=== PATIENT | male | born 1975 | race Caucasian/White ===

== ENCOUNTER 2022-04-04 12:46 | Emergency (ER) | payer MEDICARE, MEDICAID, SELFPAY ==
--- NOTE | ~2022-04-04 | CT_ITS ---
EXAMINATION: CT ABDOMEN AND PELVIS WITHOUT CONTRAST CLINICAL INFORMATION: Left upper quadrant and left flank pain COMPARISON: None TECHNIQUE: Multidetector volumetric imaging was performed from the superior aspect of the liver through the pubic symphysis. Sagittal and coronal reformatted images were obtained on the technologist's workstation. This CT examination was performed using dose optimization techniques as appropriate, variously including the following: *Automated exposure control *Adjustment of mA and/or kV according to patient size (this includes techniques or standardized protocols for targeted exams where dose is matched to indication/reason for exam; i.e. extremities or head) *Use of iterative reconstruction technique DLP: 802 mGy-cm FINDINGS: LUNG BASES: Mild subsegmental atelectasis in the right lower lobe and minimal dependent bibasilar atelectasis. LIVER, GALLBLADDER, AND BILIARY TREE: Mild hepatic hypoattenuation compatible steatosis. No liver lesion. No biliary ductal dilation. The gallbladder is unremarkable with no evidence of radiopaque gallstones, gallbladder wall thickening, or obvious pericholecystic inflammatory changes. PANCREAS: Mild atrophic. No pancreatic lesion, ductal dilation or peripancreatic inflammatory change. SPLEEN: Unremarkable. ADRENAL GLANDS: Unremarkable. KIDNEYS AND URETERS: 2 mm nonobstructing left midpole renal calculus and punctate 1 mm nonobstructing right lower pole renal calculus. No ureteral calculi. No hydronephrosis. 2.1 cm fluid density simple cyst in the left mid to upper pole. No other renal lesion. BLADDER: Unremarkable. GASTROINTESTINAL TRACT: No dilated bowel loops. No bowel wall thickening. Appendix is not discretely visualized. No inflammatory changes at the cecal base. No ascites or free air. ABDOMINAL WALL: Prior linear incision in the ventral left lower abdominal wall. No hernia. LYMPH NODES: No lymphadenopathy. VASCULAR: Mild vascular calcifications. Normal caliber abdominal aorta. PELVIC VISCERA: Unremarkable. OSSEOUS STRUCTURES: Serpentine sclerosis at the superior femoral heads bilaterally suspicious for avascular necrosis. No articular surface collapse or fragmentation. Status post prior discectomy with interbody spacer placement at L5-S1. Mild multilevel degenerative disc disease. CT/CT abdomen pelvis wo con IMPRESSION: 1. No acute intra-abdominal process identified to explain the patient's left upper quadrant/flank pain. 2. A couple small bilateral renal calculi. No ureteral stones or hydronephrosis. 3. Mild hepatic steatosis. 4. Findings suspicious for bilateral femoral head avascular necrosis. No articular surface collapse or fragmentation.
[2022-04-04 12:52] VITALS: BP 154/78; PULSE 95; RESP 18; TEMP 36.8; O2SAT 96; BMI 33.2
[2022-04-04 13:04] LABS: Hematocrit 46.4 % (42.0-52.0); Hemoglobin 15.7 g/dl (14.0-18.0); Mean Corpuscular HGB Conc 33.8 g/dl (31.0-36.0); Mean Corpuscular Hemoglobin 30.5 pg (27.0-33.0); Mean Corpuscular Volume 90.3 fL (80.0-98.0); Mean Platelet Volume 9.1 fL (9.4-12.4); Platelet Count 196 X10*3/uL (160-400); Red Blood Count 5.14 X10*6/uL (4.60-5.80); Red Cell Distribution Width 13.1 % (11.0-16.0); White Blood Count 6.1 X10*3/uL (4.8-10.8)
[2022-04-04 13:24] LABS: Anion Gap 16 (12-20); Blood Urea Nitrogen 15 mg/dL (9-16); Calcium 8.9 mg/dL (8.4-10.2); Carbon Dioxide 27 mmol/L (22-29); Chloride 103 mmol/L (96-108); Creatinine Clr Calc Pharmacy 113.1; Estimated Glomerular Filt Rate > 60; Glucose Random 136 mg/dL (60-115); Potassium 4.4 mmol/L (3.3-5.1); Sodium 142 mmol/L (135-145)
--- NOTE | 2022-04-04 16:31 | ED.GENADULT ---
HPI - General Adult General Chief complaint: Abdominal Pain Stated complaint: pain in back L side Time Seen by Provider: 04/04/22 16:29 Source: patient Mode of arrival: ambulatory Limitations: no limitations History of Present Illness HPI narrative: 47-year-old male no significant medical history presents to the emergency department with a few days of left-sided flank pain. Patient tells me that the pain is constant in nature, severe, breathing makes it worse. He tells me he has had kidney stones in the past, this feels different than his previous episodes of kidney stones. He denies any changes in bowel habits, changes in urination, fevers, chills, chest pain, shortness of breath, nausea, vomiting, urinary/bowel incontinence/retention, weakness, numbness or tingling.. Patient also denies trauma to the area. Related Data Previous Rx's Medication Instructions Recorded cyclobenzaprine 10 mg tablet 10 mg PO BEDTIME PRN muscle spasm 04/04/22 #7 tabs lidocaine 5 % topical patch 1 patch topical DAILY PRN pain #15 04/04/22 ea Allergies Allergy/AdvReac Type Severity Reaction Status Date / Time Unable to Assess Allergy Unverified 04/04/22 16:30 Review of Systems Review of Systems: Constitutional : No Weight loss, No Fever, No Chills, No Fatigue, No Malaise ENT/Mouth : No sore throat, No Rhinorrhea Eyes: No Eye Pain, No Swelling, No Redness Cardiovascular : No Chest Pain, No SOB, No Dyspnea on Exertion, No Orthopnea, No Edema, No Palpitations Respiratory : No Cough, No Sputum, No Wheezing Gastrointestinal : No Nausea, No Vomiting, No Diarrhea, No Constipation, No abdominal Pain, No Hematochezia, No Melena Genitourinary : No Dysuria, No Urinary Frequency, No Hematuria, Musculoskeletal : No joint pain, No Myalgias, No Joint Swelling, + flank pain Skin : No Skin Lesions, No rash Neuro : No Weakness, No Numbness, No Dizziness, No Headache All other systems reviewed and are negative Yes all other systems are reviewed and are negative [facility] Past Medical History Attestation statement: The following information was validated with the patient. Source: old records reviewed and nursing notes reviewed Social History Social History Advance Directives: No Advance Directives Information Provided: No Physical Exam ED Vital Signs: Vital Signs - 24 hr 04/04/22 12:52 Temperature 98.2 F Pulse Rate 95 Respiratory Rate 18 Blood Pressure 154/78 H Pulse Oximetry 96 Oxygen Delivery Method Room Air BMI result Body Mass Index 33.2 VSS Appearance: Alert.? Oriented X3.? No acute distress.? Head: Normocephalic, atraumatic, no step-offs or deformities Eyes: Pupils equal, round and reactive to light.? CVS: Normal heart rate and rhythm.? Pulses normal.? Respiratory: No respiratory distress.? Breath sounds normal.? Abdomen: Soft and nontender.? Skin: Skin warm and dry.? Normal skin color.? Normal skin turgor.? Extremities: No lower extremity edema.? No calf ttp. 5/5 strength to bilateral upper and lower extremities 2+ patellar reflexes equal and b/l. Back: No midline tenderness, no C-spine tenderness, full range of motion, no CVA tenderness bilaterally Neuro: Oriented X 3.? No motor deficit.? No sensory deficit. CN 2-12 intact Course Reevaluation(s) Reevaluation #1: CT of the abdomen pelvis with no acute intra-abdominal process, small bilateral renal calculi noted. Mild hepatic steatosis. Bilateral femoral head avascular necrosis suspected, educated patient on diagnosis, advised him to follow-up with his PCP. CBC within normal limits. Chemistry with no acute findings. Urine pending. Time: 20:23 Reevaluation #2: Urine clean. Likely musculoskeletal pain or patient passed a kidney stone. At this time patient will be discharged home. He tells me he is feeling so much better after Toradol. At this time I feel comfortable discharge with prompt PCP follow-up. Time: 20:41 Medical Decision Making [facility] Narrative Medical decision making narrative: 1630 47-year-old male presenting with complaints of left-sided flank pain history of kidney stones. Physical examination w/ L sided of CVA tenderness and LUQ pain w./ palpation. Plan at this time is to rule out UTI, obstructing uropathy, Pylo. Likley kidney stone or musculoskeletal Plan at this time UA, labs, ct abd and pelvis. Medical Records Medical records reviewed: Yes I reviewed the patient's medical records. Lab Data Lab results reviewed: Yes I reviewed the patient's lab results. Result diagrams: 04/04/22 12:58 04/04/22 12:58 Labs: Lab Results 04/04/22 04/04/22 04/04/22 Range/Units 12:58 12:58 20:25 WBC 6.1 (4.8-10.8) X10*3/uL RBC 5.14 (4.60-5.80) X10*6/uL Hgb 15.7 (14.0-18.0) g/dl Hct 46.4 (42.0-52.0) % MCV 90.3 (80.0-98.0) fL MCH 30.5 (27.0-33.0) pg MCHC 33.8 (31.0-36.0) g/dl RDW 13.1 (11.0-16.0) % Plt Count 196 (160-400) X10*3/uL MPV 9.1 L (9.4-12.4) fL Absolute Nucleated RBC 0.000 (0.0-0.012) X10*3/uL Nucleated RBC % (auto) 0.0 (0.0-0.2) /100WBC Sodium 142 (135-145) mmol/L Potassium 4.4 (3.3-5.1) mmol/L Chloride 103 (96-108) mmol/L Carbon Dioxide 27 (22-29) mmol/L Anion Gap 16 (12-20) BUN 15 (9-16) mg/dL Creatinine 0.95 (0.5-1.4) mg/dL Estim Creat Clear Calc 113.1 Estimated GFR > 60 Random Glucose 136 H (60-115) mg/dL Calcium 8.9 (8.4-10.2) mg/dL Total Bilirubin 0.8 (0.0-1.0) mg/dL Direct Bilirubin 0.3 (0.0-0.5) mg/dL AST 25 (5-37) U/L ALT 25 (0-40) U/L Alkaline Phosphatase 78 (39-117) U/L Total Protein 8.1 H (6.5-8.0) g/dL Albumin 4.2 (3.5-5.0) g/dL Lipase 15 (8-78) U/L Urine Color YELLOW Urine Appearance HAZY Urine pH 7.5 (5.0-8.0) Ur Specific Morris 1.015 (1.005-1.025) Urine Protein NEG (NEG-TRACE) MG/DL Urine Glucose (UA) NEG (NEG) MG/DL Urine Ketones NEG (NEG) MG/DL Urine Blood NEG (NEG) Urine Nitrite NEG (NEG) Ur Leukocyte Esterase NEG (NEG) Critical Care Time Critical Care Time Critical Care Time: No Discharge Plan Discharge Clinical Impression: Left flank pain, Musculoskeletal pain Patient Disposition: Home, Self-Care Instructions: Flank Pain (ED) Additional Instructions: Take your medications as prescribed. If you were prescribed antibiotics today, it is important that you take your medication to their entirety, do not skip any doses, do not finish them early. Follow-up with your primary care provider this week. Return to the emergency department with new or worsening symptoms. Such as fevers, chills, chest pain, shortness of breath, nausea, vomiting, dizziness, headache, vision changes, lethargy In case of emergency call 911 You can take ibuprofen every 6 hours, Tylenol every 4 hours as needed for pain or discomfort. Apply Lidoderm patch to the affected area. Cyclobenzaprine an is a muscle relaxer that has been sent to your pharmacy, please take this as prescribed, it can make you tired please do not take this while driving or operating machinery. ?CT/CT abdomen pelvis wo con IMPRESSION: ? 1. No acute intra-abdominal process identified to explain the patient's left upper quadrant/flank pain. 2. A couple small bilateral renal calculi. No ureteral stones or hydronephrosis. 3. Mild hepatic steatosis. 4. Findings suspicious for bilateral femoral head avascular necrosis. No articular surface collapse or fragmentation. Prescriptions: New cyclobenzaprine 10 mg tablet 10 mg PO BEDTIME PRN (Reason: muscle spasm) Qty: 7 0RF lidocaine 5 % adhesive patch,medicated 1 patch topical DAILY PRN (Reason: pain) Qty: 15 0RF Rx Instructions: leave on most painful area for up to 12 hrs Referrals: Scott Domingo MD [Primary Care Provider] - 2 days
[2022-04-04 17:04] LABS: Alanine Aminotransferase 25 U/L (0-40); Albumin Level 4.2 g/dL (3.5-5.0); Alkaline Phosphatase 78 U/L (39-117); Aspartate Amino Transferase 25 U/L (5-37); Bilirubin Direct 0.3 mg/dL (0.0-0.5); Bilirubin Total 0.8 mg/dL (0.0-1.0); Lipase 15 U/L (8-78); Total Protein 8.1 g/dL (6.5-8.0)
[2022-04-04] MEDS: 0.9 % Sodium Chloride 1,000 ML 999 ML IV (17:47)
[2022-04-04] MEDS: Ketorolac Tromethamine 15 MG/ML VIAL 30 MG IVPUSH (17:47)
[2022-04-04 20:33] LABS: Appearance Urine HAZY; Color Urine YELLOW; Glucose Urine UA NEG (NEG); Leukocyte Esterase Urine NEG (NEG); Nitrite Urine NEG (NEG); PH 7.5 (5.0-8.0); Specific Gravity - Urine 1.015 (1.005-1.025); Urine Blood NEG (NEG); Urine Ketones NEG (NEG); Urine Protein NEG (NEG-TRACE)
[2022-04-04 20:52] VITALS: BP 120/72; PULSE 77; RESP 18; O2SAT 97
--- NOTE | 2022-04-04 20:58 | PC.NURSE ---
d/c education provided, iv access removed, no questions or concerns at this time, pt left ambulatory steady gait no difficulty.
== END 2022-04-04 21:01 | disposition home or self-care (01) ==
PROVIDERS: Physician Assistant; Emergency Provider Internal Medicine; PCP Internal Medicine
DX: R10.9 Unspecified abdominal pain (principal); M79.10 Myalgia, unspecified site
CPT/HCPCS: 36415; 74176; 80048; 80076; 81003; 83690; 85027; 96361; 96374; 99284; J1885

== ENCOUNTER 2022-12-18 09:59 | Outpatient (REF) | payer MEDICARE, MEDICAID, SELFPAY ==
[2022-12-18 12:04] LABS: Hematocrit 45.4 % (42.0-52.0); Hemoglobin 15.3 g/dl (14.0-18.0); Mean Corpuscular HGB Conc 33.7 g/dl (31.0-36.0); Mean Corpuscular Hemoglobin 30.5 pg (27.0-33.0); Mean Corpuscular Volume 90.6 fL (80.0-98.0); Mean Platelet Volume 9.3 fL (9.4-12.4); Platelet Count 203 X10*3/uL (160-400); Red Blood Count 5.01 X10*6/uL (4.60-5.80); Red Cell Distribution Width 13.4 % (11.0-16.0); White Blood Count 5.5 X10*3/uL (4.8-10.8)
[2022-12-18 12:15] LABS: Alanine Aminotransferase 24 U/L (0-40); Albumin Level 3.9 g/dL (3.5-5.0); Alkaline Phosphatase 64 U/L (39-117); Anion Gap 12 (12-20); Aspartate Amino Transferase 22 U/L (5-37); Blood Urea Nitrogen 14 mg/dL (9-16); Calcium 8.7 mg/dL (8.4-10.2); Carbon Dioxide 28 mmol/L (22-29); Chloride 104 mmol/L (96-108); Cholesterol 175 mg/dL; Estimated Glomerular Filt Rate > 60; Glucose Fasting 103 mg/dL (60-99); HDL Cholesterol 34 mg/dL; LDL Cholesterol Calculated 120 mg/dl; Potassium 4.2 mmol/L (3.3-5.1); Sodium 140 mmol/L (135-145); Triglycerides 105 mg/dL
[2022-12-18 12:25] LABS: TSH reflex Free T4 3.31 uIU/mL (0.32-4.0)
== END 2022-12-18 10:00 | disposition home or self-care (01) ==
LOC: HO.WFDLDS 09:59
PROVIDERS: Visit Provider Nurse Practitioner Family
DX: R73.03 Prediabetes (principal)
CPT/HCPCS: 36415; 80053; 80061; 84443; 85027

== ENCOUNTER 2023-03-18 15:39 | Outpatient (AMB) | payer MEDICARE, MEDICAID, SELFPAY ==
[2023-03-18 15:46] VITALS: BP 108/70; PULSE 85; RESP 12; TEMP 36.8; O2SAT 98; BMI 32.2
--- NOTE | 2023-03-18 15:46 | MHC.PC.OV ---
Vital Signs 03/18/23 15:46 Height 5 ft 9 in Weight 218 lb 6 oz BMI 32.2 BP 108/70 Blood Pressure Location Lt brachial Position Sitting Respiration 12 Pulse 85 Pulse Source Pulse Oximeter Temp 98.3 F Temp Source Temporal Artery Scan Pulse Oximetry (%) 98 Oxygen Delivery Method Room Air Intake Visit Reasons: 3M f/u diabetes and hyperthyroidism Director Group Sales Required: No Accompanied by: Self / Same As Patient Allergies Penicillins Allergy (Severe, Verified 03/18/23 16:08) Anaphylaxis Medication List - Last Reconciled 03/18/23 by Meme Odonnell CNP amitriptyline 100 mg PO DAILY atorvastatin 20 mg PO DAILY levothyroxine 125 mcg PO DAILY 30 days lidocaine 5% 1 patch topical DAILY PRN meclizine 25 mg PO DAILY PRN 30 days metformin 500 mg PO BID 30 days Tobacco use date assessed: 12/08/22 Dental Screening Dental Screen Date: 03/18/23 Did you have a dental visit in the last 12 months?: Yes Did you have a dental problem in the last 6 months where you did not have access to dental care?: No Was dental information given to patient?: Patient has dentist HPI HPI Comments History of Present Illness Details 48-year-old male presents for diabetes and hypothyroidism follow-up He notes that he has been taking his medications as prescribed He notes that he no longer experiences lightheadedness and takes meclizine as needed [facility] Medical History (Updated 03/18/23 @ 16:20 by Meme Odonnell CNP) Arthritis Diabetes 1.5, managed as type 2 Fatty liver High cholesterol Hypertension Hypothyroid Kidney disease Migraine Surgical History No pertinent past surgical history Family History (Updated 03/18/23 @ 15:57 by Gail Power MA) Mother Clotting disorder Social History Housing: Apartment Patient Tobacco Use Status: Former Tobacco user e-Cigarette/Vaping Use: Never Used service: Yes Current occupational status: employed and disabled Current occupation: Disabled [employer] Cognitive needs: No Hearing needs: No Vision needs: No Questionnaire Thrive Questionnaire Date Thrive assessed: 11/20/22 ROSEMARIE-7 AMB Questionnaire ROSEMARIE-7 Date ROSEMARIE - 7 assessed: 11/20/22 Source: Developed by Drs. Royce Lara, Leonarda Dent, John Hollingsworth and colleagues, with an educational mae from [employer]. Review of Systems Const Details: Const Denies chills, Denies fatigue, Denies fever(s), Denies headache(s) and Denies weakness ENT Denies change in vision, Denies dizziness, Denies headache(s), Denies hearing loss, Denies nasal congestion, Denies sinus pain, Denies sinus pressure and Denies sore throat Resp Denies cough, Denies dyspnea, Denies wheezing and Denies other (shortness of breath) Cardio Denies chest pain, Denies lightheadedness, Denies dyspnea and Denies other (palpitations) Neuro Denies dizziness, Denies headache(s), Denies numbness, Denies tingling and Denies weakness Psych Denies anxiety, Denies depression, Denies memory?loss Endo Denies fatigue Aller/Immun Denies wheezing Physical exam (Primary Care) Vital Signs: Last Vital Signs Temp 98.3 F 03/18/23 15:46 Pulse 85 03/18/23 15:46 Resp 12 03/18/23 15:46 BP 108/70 03/18/23 15:46 Pulse Ox 98 03/18/23 15:46 Oxygen Delivery Method Room Air 03/18/23 15:46 BMI result Body Mass Index 32.2 Tobacco/Smoking Status: Tobacco use Status Tobacco use date assessed 12/08/22 03/18/23 15:57 Patient Tobacco Use Status Former Tobacco user 03/18/23 15:57 e-Cigarette/Vaping Use Never Used 03/18/23 15:57 Thrive Assessment: Date of Thrive Assessment Date Thrive assessed 11/20/22 03/18/23 15:57 Const Other: Const General: well developed; No acute distress Nutritional Appearance: well nourished Orientation/consciousness: patient oriented x3 HEENT Head: Yes normocephalic and Yes atraumatic Eyes General: appearance normal, both eyes and all related structures Pupils: Equal, round and reactive pupils present EOM: EOMs intact bilaterally Resp Effort & Inspection: normal respiratory effort Auscultation: clear to auscultation bilaterally Cardio Rate: regular rate Rhythm: regular rhythm Heart sounds: S1 normal heart sound present, S2 normal heart sound present, no gallops, no murmurs and no rubs Bruits: no abdominal aortic bruits and no carotid bruits Neuro General: patient oriented x3 and gait normal, no focal neuro deficit Cranial nerves: Yes Equal, round and reactive pupils present Psych Affect: normal affect Results AMB Hemoglobin A1c AMB Hemoglobin A1c 5.7 % Last Edit by Gail Power MA on 03/18/23 16:12 Assessment and Plan Assessment & Plan (1) DM2 (diabetes mellitus, type 2): Code(s): E11.9 - Type 2 diabetes mellitus without complications Plan: His A1c today is 5.7%, within goal of less than 7.0% Continue to take metformin as prescribed ADA diet and routine exercise encouraged Follow-up in 1 month for complete physical exam Return sooner with symptoms or concerns Verbalized understanding and agreed with treatment plan. (2) Hypothyroidism: Code(s): E03.9 - Hypothyroidism, unspecified Qualifiers: Hypothyroidism type: unspecified Qualified Code(s): E03.9 - Hypothyroidism, unspecified Plan: Last TSH was normal Encouraged to get pending TSH blood work done before next visit Follow-up in 1 month Verbalized understanding and agreed with treatment plan. (3) Episodic lightheadedness: Code(s): R42 - Dizziness and giddiness Plan: Resolved (4) High cholesterol: Code(s): E78.00 - Pure hypercholesterolemia, unspecified Plan: LDL was 120 in December, above goal of less than 100 Limit foods high in saturated fat and avoid foods high trans fat Routine exercise encouraged Lipid panel ordered. Encouraged to get fasting blood work done before next visit Follow-up in 1 month for complete physical exam Verbalized understanding and agreed with treatment plan Orders: Orders Lipid Panel Today E03.9 - Hypothyroidism, unspecified Coding Level of Care Code Est Pt Level 3 (86322) Diagnoses DM2 (diabetes mellitus, type 2) E11.9 Hypothyroidism E03.9 Hypothyroidism type: unspecified Episodic lightheadedness R42 High cholesterol E78.00 Time Spent (min) 25
== END 2023-03-18 16:18 | disposition home or self-care (01) ==
PROVIDERS: PCP Nurse Practitioner Family; Visit Provider Nurse Practitioner Family
DX: E11.9 Type 2 diabetes mellitus without complications (principal); E03.9 Hypothyroidism, unspecified; R42 Dizziness and giddiness; E78.00 Pure hypercholesterolemia, unspecified
CPT/HCPCS: 99213

== ENCOUNTER 2023-04-20 10:40 | Outpatient (AMB) | payer MEDICARE, MEDICAID, SELFPAY ==
[2023-04-20 10:49] VITALS: BP 110/64; PULSE 69; O2SAT 96; BMI 32.5
--- NOTE | 2023-04-20 10:49 | MHC.PC.OV ---
Vital Signs 04/20/23 10:49 Height 5 ft 9 in Weight 220 lb 4 oz BMI 32.5 BP 110/64 Blood Pressure Location Lt brachial Position Sitting Pulse 69 Pulse Source Pulse Oximeter Pulse Oximetry (%) 96 Oxygen Delivery Method Room Air Intake Visit Reasons: transfer care from [facility] Intake Note: Patient is here with request for racing thoughts. Allergies Penicillins Allergy (Severe, Verified 04/20/23 10:51) Anaphylaxis Tobacco use date assessed: 04/20/23 Dental Screening Dental Screen Date: 04/20/23 Did you have a dental visit in the last 12 months?: Yes Did you have a dental problem in the last 6 months where you did not have access to dental care?: No Was dental information given to patient?: No HPI transfer care from [facility] HPI Details New patient/Transfer of Care Prior PCP:? Last office visit/CPE: Acute issue(s): Racing thoughts Pt states he does not have diabetes and has not hit an A1c of 6.5%. Migraines - Is on amitriptyline PMHx: Diabetes, Mixed HLD, Hypothyroidism, Post-traumatic brain syndrome, Depression/Anxiety, Congenital Spinal Stenosis PFSH Medical History Arthritis Diabetes 1.5, managed as type 2 Fatty liver High cholesterol Hypertension Hypothyroid Kidney disease Migraine Surgical History No pertinent past surgical history Family History Mother Clotting disorder Social History Housing: Apartment Patient Tobacco Use Status: Former Tobacco user e-Cigarette/Vaping Use: Never Used service: Yes Current occupational status: employed and disabled Current occupation: Disabled Cognitive needs: No Hearing needs: No Vision needs: No Questionnaire PHQ-9 Over the last 2 weeks, how often have you been bothered by any of the following problems? 1. Little interest or pleasure in doing things: not at all 2. Feeling down, depressed, or hopeless: not at all 3. Trouble falling or staying asleep, or sleeping too much: nearly every day 4. Feeling tired or having little energy: not at all 5. Poor appetite or overeating: not at all 6. Feeling bad about yourself - or that you are a failure or have let yourself or your family down: not at all 7. Trouble concentrating on things, such as reading the newspaper or watching television: nearly every day 8. Moving or speaking so slowly that other people could have noticed. Or the opposite - being so fidgety or restless that you have been moving around a lot more than usual: not at all 9. Thoughts that you would be better off or of hurting yourself in some way: not at all Total score: 6 Depression Screening Interpretation: Positive 10297 - PHQ-9 Billing: Yes Source: Developed by Drs. Royce Lara, Leonarda Dent, John Hollingsworth and colleagues, with an educational mae from [employer]. Thrive Questionnaire Date Thrive assessed: 11/20/22 I am a: Patient What is your living situation today?: I have a steady place to live Within the past 12 months, did the food you bought not last and you didn't have the money to get more?: Never true Within the past 12 months, did you worry whether your food would run out before you got money to buy more?: Never true Do you have trouble paying for medicines?: No Do you have trouble getting transportation to medical appointments?: No Do you have trouble paying your heating and electricity bill?: No Do you have trouble taking care of your child, family member or friend?: No Do you have trouble with day-to-day activities such as bathing, preparing meals, shopping, managing finances, etc.?: No Are you currently unemployed and looking for a job?: No Are you interested in more education?: No ROSEMARIE-7 AMB Questionnaire ROSEMARIE-7 Date ROSEMARIE - 7 assessed: 04/20/23 Feeling nervous, anxious, or on edge: 0 = Not at all Not being able to stop or control worryin = Not at all Worrying too much about different things: 0 = Not at all Trouble relaxin = Nearly every day Being so restless that it is hard to sit still: 0 = Not at all Becoming easily annoyed or irritable: 0 = Not at all Feeling afraid as if something awful might happen: 0 = Not at all Total ROSEMARIE-7 score (0-4 normal; 5-9 mild; 10-14 moderate; 15-21 severe): 3 Source: Developed by Drs. Royce Lara, Leonarda Dent, John Hollingsworth and colleagues, with an educational mae from [employer]. ROSEMARIE-7 Assessment Billing ROSEMARIE-7 Assessment Tool: ROSEMARIE-7 Assessment 13736 Review of Systems Const Denies chills, Denies fatigue, Denies fever(s), Denies headache(s) and Denies weakness ENT Denies dizziness and Denies headache(s) Card Denies chest pain, Denies lightheadedness, Denies dyspnea and Denies other (Palpitations) Resp Denies cough, Denies dyspnea, Denies wheezing and Denies other ( shortness of breath) Musc Denies numbness and Denies tingling Neuro Denies dizziness, Denies headache(s), Denies numbness, Denies tingling, Denies paresthesias and Denies weakness Psych Denies anxiety and Denies depression Endo Denies fatigue Aller/Immun Denies wheezing Physical exam (Primary Care) Vital Signs: Last Vital Signs Pulse 69 04/20/23 10:49 BP 110/64 04/20/23 10:49 Pulse Ox 96 04/20/23 10:49 Oxygen Delivery Method Room Air 04/20/23 10:49 BMI result Body Mass Index 32.5 Tobacco/Smoking Status: Tobacco use Status Tobacco use date assessed 04/20/23 04/20/23 10:57 Patient Tobacco Use Status Former Tobacco user 04/20/23 10:57 e-Cigarette/Vaping Use Never Used 04/20/23 10:57 PHQ-9: PHQ-9 Score PHQ-9: Total score 6 04/20/23 10:57 Depression Screening Interpretation: Positive Thrive Assessment: Date of Thrive Assessment Date Thrive assessed 11/20/22 04/20/23 10:57 Const General: no acute distress and well developed Nutritional Appearance: well nourished Orientation/consciousness: patient oriented x3 HENMT Head: Yes normocephalic and Yes atraumatic Eyes General: appearance normal, both eyes and all related structures Pupils: Equal, round and reactive pupils present EOM: EOMs intact bilaterally Resp Effort & Inspection: normal respiratory effort Auscultation: clear to auscultation bilaterally Cardio Rate: regular rate Rhythm: regular rhythm Heart sounds: S1 normal heart sound present, S2 normal heart sound present, no gallops, no murmurs and no rubs Neuro General: patient oriented x3 and gait normal Cranial nerves: Yes Equal, round and reactive pupils present Psych Affect: normal affect Assessment and Plan Assessment & Plan (1) Migraine: Code(s): G43.909 - Migraine, unspecified, not intractable, without status migrainosus Plan: Can continue Abilify (2) Mixed hyperlipidemia: Code(s): E78.2 - Mixed hyperlipidemia Plan: Check labs fasting (3) Elevated fasting glucose: Code(s): R73.01 - Impaired fasting glucose Plan: Patient has elevated fasting blood sugars and is on metformin. He denies any diagnosis of diabetes however. Unclear if he has ever had a diagnosis of diabetes and as above he is already on an anti hyperglycemic medication Continue metformin. Check A1c (4) Prediabetes: Code(s): R73.03 - Prediabetes Plan: As above, he will continue metformin and check his A1c (5) Anxiety: Code(s): F41.9 - Anxiety disorder, unspecified Plan: Patient has complaints of racing thoughts and difficulty stopping his thoughts. Denies history of bipolar disorder Discussed anxiety with patient and he says he does not feel anxious and objects to the term anxiety however his complaint does seem to fall under the umbrella of anxiety disorders. Will try Abilify and he can continue amitriptyline which he uses primarily for migraines. Follow-up in 1 month Orders: Orders Triiodothyronine T3 Total Today E03.9 - Hypothyroidism, unspecified Comprehensive [place]. Panel Fast Today E03.9 - Hypothyroidism, unspecified, Z00.00 - Encounter for general adult medical examination without abnormal findings Hemoglobin A1c Today R73.01 - Impaired fasting glucose Lipid Panel Today E78.00 - Pure hypercholesterolemia, unspecified, Z00.00 - Encounter for general adult medical examination without abnormal findings Free T4 (Free Thyroxine) Today E03.9 - Hypothyroidism, unspecified Thyroid Stimulating Hormone Today E03.9 - Hypothyroidism, unspecified Microalbumin, Random (w Creat) Today I10 - Essential (primary) hypertension, R73.01 - Impaired fasting glucose Medications: New aripiprazole (Abilify) 2 mg PO BEDTIME 30 tabs 1RF 30 days Coding Level of Care Code Est Pt Level 3 (38703) Diagnoses Migraine G43.909 Mixed hyperlipidemia E78.2 Elevated fasting glucose R73.01 Prediabetes R73.03 Anxiety F41.9 Additional Codes ROSEMARIE-7 Assessment Billing - ROSEMARIE-7 Assessment Tool: ROSEMARIE-7 Assessment 68483 ([id number])
== END 2023-04-20 12:06 | disposition home or self-care (01) ==
PROVIDERS: PCP Nurse Practitioner Family; Visit Provider Family Medicine
DX: G43.909 Migraine, unspecified, not intractable, without status migrainosus (principal); E78.2 Mixed hyperlipidemia; R73.01 Impaired fasting glucose; F41.9 Anxiety disorder, unspecified; R73.03 Prediabetes
CPT/HCPCS: 96127; 99213

== ENCOUNTER 2023-08-21 11:36 | Outpatient (AMB) | payer MEDICARE, MEDICAID, SELFPAY ==
--- NOTE | 2023-08-21 11:44 | MHC.PC.OV ---
Vital Signs 08/21/23 11:47 Height 5 ft 9 in Weight 227 lb BMI 33.5 BP 120/64 Blood Pressure Location Lt brachial Position Sitting Pulse 95 Pulse Source Pulse Oximeter Pulse Oximetry (%) 97 Oxygen Delivery Method Room Air Intake Visit Reasons: Med Follow up Intake Note: Patient is here to follow up on abilify. Allergies Penicillins Allergy (Severe, Verified 08/21/23 11:48) Anaphylaxis Tobacco use date assessed: 08/21/23 HPI Med Follow up HPI Details 48 y/o male presents to f/u meds. Pt had complaints of racing thoughts and had started him on a small dose of Abilify. A1c today 08/21/23 6.1%. He is on metformin 500mg b.i.d. patient?left?before?being?seen?by?provider?as?provider?was?running?late [facility] Medical History Kidney disease Migraine Fatty liver Hypertension High cholesterol Arthritis Hypothyroid Diabetes 1.5, managed as type 2 Surgical History No pertinent past surgical history Family History Mother Clotting disorder Social History Housing: Apartment Patient Tobacco Use Status: Former Tobacco user e-Cigarette/Vaping Use: Never Used service: Yes Current occupational status: employed and disabled Current occupation: Disabled [place] Cognitive needs: No Hearing needs: No Vision needs: No Questionnaire Thrive Questionnaire Date Thrive assessed: 11/20/22 ROSEMARIE-7 AMB Questionnaire ROSEMARIE-7 Date ROSEMARIE - 7 assessed: 04/20/23 Source: Developed by Drs. Royce Lara, Leonarda Dent, John Hollingsworth and colleagues, with an educational mae from [employer]. Physical exam (Primary Care) Vital Signs: Last Vital Signs Pulse 95 08/21/23 11:47 BP 120/64 08/21/23 11:47 Pulse Ox 97 08/21/23 11:47 Oxygen Delivery Method Room Air 08/21/23 11:47 BMI result Body Mass Index 33.5 Tobacco/Smoking Status: Tobacco use Status Tobacco use date assessed 08/21/23 08/21/23 11:49 Patient Tobacco Use Status Former Tobacco user 08/21/23 11:45 e-Cigarette/Vaping Use Never Used 08/21/23 11:45 Thrive Assessment: Date of Thrive Assessment Date Thrive assessed 11/20/22 08/21/23 11:45 Results AMB Hemoglobin A1c AMB Hemoglobin A1c 6.1 % Last Edit by Jeni Elliott CMA on 08/21/23 12:05 Results Reviewed Results Reviewed: Laboratory Last Values Hgb A1c (Clinic) 6.1 % (4.0-6.0) H 08/21/23 12:05 Assessment and Plan Assessment & Plan Orders: Orders AMB Hemoglobin A1c Today Z13.9 - Encounter for screening, unspecified Coding Level of Care Code Left Without Being Seen Comment patient?left?before?being?seen?by?provider?as?provider?was?running?late
[2023-08-21 11:47] VITALS: BP 120/64; PULSE 95; O2SAT 97; BMI 33.5
== END 2023-08-21 13:02 | disposition left against medical advice (07) ==
PROVIDERS: PCP Nurse Practitioner Family; Visit Provider Family Medicine
DX: R73.01 Impaired fasting glucose (principal)
CPT/HCPCS: 83036

== ENCOUNTER 2023-11-17 11:49 | Outpatient (AMB) | payer OTHER, SELFPAY ==
--- NOTE | 2023-11-17 11:58 | A.OFFPC_ITS ---
Vital Signs 11/17/23 11:59 Height 5 ft 9 in Weight 226 lb 2 oz BMI 33.4 BP 106/74 Blood Pressure Location Rt brachial Position Sitting Respiration 13 Pulse 93 Pulse Source Pulse Oximeter Temp 97.6 F Temp Source Temporal Artery Scan Pulse Oximetry (%) 98 Oxygen Delivery Method Room Air Intake Visit Reasons: Blood sugar Follow up [employer] Required: No Accompanied by: Self / Same As Patient Allergies Penicillins Allergy (Severe, Verified 11/17/23 12:05) Anaphylaxis acetaminophen [From Percocet] Adverse Reaction (Mild, Verified 11/17/23 12:05) Itching oxycodone [From Percocet] Adverse Reaction (Mild, Verified 11/17/23 12:05) Itching Medication List - Last Reconciled 11/17/23 by Meme Odonnell CNP amitriptyline 100 mg PO DAILY aripiprazole (Abilify) 2 mg PO BEDTIME 30 days atorvastatin 20 mg PO DAILY levothyroxine 125 mcg PO DAILY 30 days lidocaine 5% 1 patch topical DAILY PRN metformin 500 mg PO BID 30 days Tobacco use date assessed: 11/17/23 Dental Screening Dental Screen Date: 11/17/23 Did you have a dental visit in the last 12 months?: Yes Did you have a dental problem in the last 6 months where you did not have access to dental care?: No Was dental information given to patient?: Patient has dentist HPI HPI Comments History of Present Illness Details 48-year-old male presents for diabetes f ollow-up His last A1c in August was 6.1%. He left before seen by his PCP. He has been on Abilify for complaints of racing thoughts which he notes have improved and have a little bit of racing thoughts He admits to taking his medications as prescribed without adverse reactions. He will like to stop taking metformin He offers no complaints and denies acute symptoms at this time [facility] Medical History Kidney disease Migraine Fatty liver Hypertension High cholesterol Arthritis Hypothyroid Diabetes 1.5, managed as type 2 Surgical History No pertinent past surgical history Family History Mother Clotting disorder Social History (Reviewed 08/21/23 @ 11:51 by Jeni Elliott [facility] [address]) Housing: Apartment Patient Tobacco Use Status: Former Tobacco user e-Cigarette/Vaping Use: Never Used service: Yes Current occupational status: employed and disabled Current occupation: Disabled [place] Cognitive needs: No Hearing needs: No Vision needs: No Questionnaire Thrive Questionnaire Date Thrive assessed: 11/20/22 ROSEMARIE-7 AMB Questionnaire ROSEMARIE-7 Date ROSEMARIE - 7 assessed: 04/20/23 Source: Developed by Drs. Royce Lara, Leonarda Dent, John Hollingsworth and colleagues, with an educational mae from [employer]. Review of Systems Const Details: Const Denies chills, Denies fatigue, Denies fever(s), Denies headache(s) and Denies weakness ENT Denies dizziness and Denies headache(s) Card Denies chest pain, Denies lightheadedness, Denies dyspnea and Denies other (Palpitations) Resp Denies cough, Denies dyspnea, Denies wheezing and Denies other ( shortness of breath) GI Denies abdominal pain, Denies melena, Denies hematochezia, Denies change in bowel habits, Denies dyspepsia and Denies nausea Denies hematuria and Denies dysuria Musc Denies abnormal gait, Denies myalgias, Denies arthralgias, Denies numbness and Denies tingling Skin/Breast Denies rash, Denies unusual bruising and Denies wounds Neuro Denies abnormal gait, Denies dizziness, Denies headache(s), Denies memory loss, Denies numbness, Denies Sensory deficit (Neuro), Denies tingling and Denies weakness Psych Denies anxiety, Denies depression, Denies memory loss Endo Denies cold intolerance, Denies fatigue, Denies heat intolerance, Denies polydipsia and Denies polyuria Aller/Immun Denies wheezing Physical exam (Primary Care) Tobacco/Smoking Status: Tobacco use Status Tobacco use date assessed 08/21/23 08/21/23 11:49 Patient Tobacco Use Status Former Tobacco user 08/21/23 11:45 e-Cigarette/Vaping Use Never Used 08/21/23 11:45 Thrive Assessment: Date of Thrive Assessment Date Thrive assessed 11/20/22 08/21/23 11:45 Const Other: General: no acute distress and well developed Nutritional Appearance: well nourished Orientation/consciousness: patient oriented x3 HENDC Head: Yes normocephalic and Yes atraumatic Eyes General: appearance normal, both eyes and all related structures Pupils: Equal, round and reactive pupils present EOM: EOMs intact bilaterally Resp Effort & Inspection: normal respiratory effort Auscultation: clear to auscultation bilaterally Cardio Rate: regular rate Rhythm: regular rhythm Heart sounds: S1 normal heart sound present, S2 normal heart sound present, no gallops, no murmurs and no rubs GI Palpation (GI): No Abdominal aortic bruit present, Soft to palpation, nontender, No hepatosplenomegaly present and No Rebound tenderness present Auscultation: normal bowel sounds General: Yes no CVA tenderness Back/Spine/Pelvis Back: no CVA tenderness Cervical Spine: cervical ROM normal and No Cervical spine tenderness Thoracic/Lumbar Spine: thoraco-lumbar ROM normal, No pain with thoraco-lumbar ROM, No thoracic spinal tenderness and No lumbar spinal tenderness Extrem General: Yes normal to inspection, No edema and No calf tenderness Skin General: warm and dry. Normal skin color. Normal skin turgor Neuro General: patient oriented x3, gait normal and no focal neuro deficit Cranial nerves: Yes Equal, round and reactive pupils present Cognition (Neuro): normal cognition Gait exam (Neuro): Normal gait present Sensory Exam: No Sensory deficit (Neuro) Psych Appearance: grossly normal Speech: Talkative and slightly pressured Affect: normal affect Attitude: cooperative Thought process: Normal thought process present Results AMB Hemoglobin A1c AMB Hemoglobin A1c 5.9 % Last Edit by Gail Power MA on 11/17/23 12:23 Assessment and Plan Assessment & Plan (1) DM2 (diabetes mellitus, type 2): Code(s): E11.9 - Type 2 diabetes mellitus without complications Plan: A1c today is 5.9%, within goal of less than 7.0%. Previous A1c was 6.1% With reduce metformin to 500 mg daily. Take as prescribed ADA diet and routine exercise encouraged A1c will be rechecked in 3 months Follow-up with PCP with symptoms or concerns Verbalized understanding and agreed with treatment plan (2) Adjustment disorder with mixed anxiety and depressed mood: Code(s): F43.23 - Adjustment disorder with mixed anxiety and depressed mood Plan: He has been on Abilify for complaints of racing thoughts which he notes have improved but continues to have a little bit of racing thoughts Will increase Abilify to 4 mg every night. Take as prescribed Routine exercise encouraged Follow-up with PCP in 1 month or return sooner with worsening or new symptoms Verbalized understanding and agreed with treatment plan Orders: Orders AMB Hemoglobin A1c Today E11.9 - Type 2 diabetes mellitus without complications Medications: Changed From metformin 500 mg PO BID 30 days 60 tabs 3RF To metformin 500 mg PO DAILY 30 days 30 tabs 3RF From aripiprazole (Abilify) 2 mg PO BEDTIME 30 days 30 tabs 1RF To aripiprazole (Abilify) 4 mg (2 x 2 mg) PO BEDTIME 30 days 60 tabs 1RF Coding Level of Care Code Est Pt Level 4 (22794) Diagnoses DM2 (diabetes mellitus, type 2) E11.9 Adjustment disorder with mixed anxiety and depressed mood F43.23
[2023-11-17 11:59] VITALS: BP 106/74; PULSE 93; RESP 13; TEMP 36.4; O2SAT 98; BMI 33.4
== END 2023-11-17 13:33 | disposition home or self-care (01) ==
LOC: HO.HMGFM 11:52
PROVIDERS: PCP Nurse Practitioner Family; Visit Provider Nurse Practitioner Family
DX: E11.9 Type 2 diabetes mellitus without complications (principal); F43.23 Adjustment disorder with mixed anxiety and depressed mood
CPT/HCPCS: 83036; 99214

== ENCOUNTER 2024-02-25 11:06 | Outpatient (AMB) | payer OTHER, SELFPAY ==
--- NOTE | 2024-02-25 11:16 | MHC.PC.OV ---
Vital Signs 02/25/24 11:17 Height 5 ft 9 in Weight 226 lb 6 oz BMI 33.4 BP 110/64 Blood Pressure Location Rt brachial Position Sitting Respiration 14 Pulse 85 Pulse Source Pulse Oximeter Temp 97.8 F Temp Source Temporal Artery Scan Pulse Oximetry (%) 99 Oxygen Delivery Method Room Air Intake Visit Reasons: DM2 Intake Note: Patient would like order put in for a cane for upcoming surgery. Skull Chopper Required: No Accompanied by: Self / Same As Patient Allergies Penicillins Allergy (Severe, Verified 02/25/24 11:27) Anaphylaxis acetaminophen [From Percocet] Adverse Reaction (Mild, Verified 02/25/24 11:27) Itching oxycodone [From Percocet] Adverse Reaction (Mild, Verified 02/25/24 11:27) Itching Tobacco use date assessed: 11/17/23 Dental Screening Dental Screen Date: 11/17/23 HPI HPI Comments History of Present Illness Details Patient?presents?to?follow-up?diabetes A1c?climbed?to?6.5%.??He?notes?that?he?has?been?having?some?dietary?indiscretions. Taking?metformin?once?a?day?as?prescribed.??He?would?like?to?increase?this. Avascular?necrosis?of?bilateral?hips.??He?would?like?a?cane. He?has?an?upcoming?surgery?for?bilateral?hips?by?[facility]. No?other?complaints?today. [facility] Medical History Kidney disease Migraine Fatty liver Hypertension High cholesterol Arthritis Hypothyroid Diabetes 1.5, managed as type 2 Surgical History No pertinent past surgical history Family History Mother Clotting disorder Social History Housing: Apartment Patient Tobacco Use Status: Former Tobacco user e-Cigarette/Vaping Use: Never Used service: Yes Current occupational status: disabled Current occupation: Disabled [place] Cognitive needs: No Hearing needs: No Vision needs: No Questionnaire Thrive Questionnaire Date Thrive assessed: 11/20/22 ROSEMARIE-7 AMB Questionnaire ROSEMARIE-7 Date ROSEMARIE - 7 assessed: 04/20/23 Source: Developed by Drs. Royce Lara, Leonarda Dent, John Hollingsworth and colleagues, with an educational mae from [employer]. Review of Systems Const Details: CONSTITUTIONAL no fever. no fatigue. no chills. CARDIOVASCULAR no chest pain. no palpitations. RESPIRATORY no cough. no shortness of breath. no trouble breathing. no wheezing. PSYCHIATRIC no anxiety. no depression. NEUROLOGIC no incoordination. no headache. no weakness. no dizziness. no gait abnormality. Physical exam (Primary Care) Vital Signs: Last Vital Signs Temp 97.8 F 02/25/24 11:17 Pulse 85 02/25/24 11:17 Resp 14 02/25/24 11:17 BP 110/64 02/25/24 11:17 Pulse Ox 99 02/25/24 11:17 Oxygen Delivery Method Room Air 02/25/24 11:17 BMI result Body Mass Index 33.4 Tobacco/Smoking Status: Tobacco use Status Tobacco use date assessed 11/17/23 02/25/24 11:17 Patient Tobacco Use Status Former Tobacco user 02/25/24 11:17 e-Cigarette/Vaping Use Never Used 02/25/24 11:17 Thrive Assessment: Date of Thrive Assessment Date Thrive assessed 11/20/22 02/25/24 11:17 Const Other: General Appearance: no apparent distress, pleasant. Heart: RRR, no murmurs, clicks or rubs, no gallops. Lungs: clear to auscultation. Extremities: no edema. Neurologic Exam: alert and oriented x3, gait normal Psych: Normal affect Results AMB Hemoglobin A1c AMB Hemoglobin A1c 6.2 % Last Edit by TELLY Gomes on 02/25/24 12:09 Assessment and Plan Assessment & Plan (1) Diabetes 1.5, managed as type 2: Code(s): E13.9 - Other specified diabetes mellitus without complications Plan: A1c?climbed?to?6.2%?but?still?at?goal?of?less?than?7.0%. He?says?he?has?had?some?dietary?indiscretions?and?having?some?difficulties?so?he?would?like?to?return?to?metformin?b.i.d. Increased?metformin?to?b.i.d.?again Keep?working?on?diabetic?diet Hydrate?well Encouraged?exercise.??He?has?difficulty?with?exercise?due?to?avascular?necrosis?of?bilateral?hips. Recommended?shadow?boxing?and?he?wants?to?try?this (2) Avascular necrosis of bones of both hips: Code(s): M87.051 - Idiopathic aseptic necrosis of right femur; M87.052 - Idiopathic aseptic necrosis of left femur Plan: He?is?scheduled?for?surgery?with?[facility] Will?send?script?for?a?cane?today Orders: Orders AMB Hemoglobin A1c Today E13.9 - Other specified diabetes mellitus without complications Medications: New cane Daily?As directed, 999?days 1 ea 0RF M87.051 - Idiopathic aseptic necrosis of right femur, M87.052 - Idiopathic aseptic necrosis of left femur blood sugar diagnostic (Contour Test Strips) Test Blood suagr twice a day as directed, 90 days 100 ea 3RF E11.9 - Type 2 diabetes mellitus without complications Changed From metformin 500 mg PO DAILY 30 days 30 tabs 3RF To metformin 500 mg PO BID 90 days 180 tabs 3RF Coding Level of Care Code Est Pt Level 3 (80955) Diagnoses Diabetes 1.5, managed as type 2 E13.9 Avascular necrosis of bones of both hips M87.051; M87.052
[2024-02-25 11:17] VITALS: BP 110/64; PULSE 85; RESP 14; TEMP 36.6; O2SAT 99; BMI 33.4
== END 2024-02-25 12:22 | disposition home or self-care (01) ==
PROVIDERS: PCP Nurse Practitioner Family; Visit Provider Family Medicine
DX: E13.9 Other specified diabetes mellitus without complications (principal); M87.051 Idiopathic aseptic necrosis of right femur; M87.052 Idiopathic aseptic necrosis of left femur
CPT/HCPCS: 83036; 99213

== ENCOUNTER 2024-05-04 08:07 | Outpatient (REF) | payer OTHER, SELFPAY ==
[2024-05-04 11:52] LABS: Alanine Aminotransferase 19 U/L (0-40); Albumin Level 4.2 g/dL (3.5-5.0); Alkaline Phosphatase 56 U/L (39-117); Anion Gap 13 (12-20); Aspartate Amino Transferase 17 U/L (5-37); Bilirubin Total 0.8 mg/dL (0.0-1.0); Blood Urea Nitrogen 20 mg/dL (9-16); Calcium 9.6 mg/dL (8.4-10.2); Carbon Dioxide 28 mmol/L (22-29); Chloride 102 mmol/L (96-108); Estimated Glomerular Filt Rate > 60; Glucose Fasting 101 mg/dL (60-99); Sodium 139 mmol/L (135-145)
[2024-05-04 12:12] LABS: Free T4 (Free Thyroxine) 0.68 ng/dL (0.71-1.85); Thyroid Stimulating Hormone 19.05 uIU/mL (0.32-4.0)
[2024-05-05 12:49] LABS: Triiodothyronine T3 Total 104 ng/dL (76-181)
== END 2024-05-04 08:08 | disposition home or self-care (01) ==
LOC: HO.WFDLDS 08:07
PROVIDERS: Visit Provider Family Medicine
DX: Z00.00 Encounter for general adult medical examination without abnormal findings (principal); E03.9 Hypothyroidism, unspecified
CPT/HCPCS: 36415; 80053; 84439; 84443; 84480

== ENCOUNTER 2024-07-08 15:39 | Outpatient (REF) | payer MEDICARE, MEDICAID, SELFPAY ==
[2024-07-08 17:55] LABS: MANUAL DIFF FLAG NO
[2024-07-08 17:59] LABS: Basophils Percent Auto 0.8 % (0-2); Eosinophils Absolute Auto 0.1 X10*3/uL (0.0-0.4); Eosinophils Percent Auto 2.3 % (0-4); Hematocrit 43.7 % (42.0-52.0); Hemoglobin 14.7 g/dl (14.0-18.0); Imm Gran Abs Auto 0.03 X10*3/uL (0.00-0.03); Imm Gran Pct Auto 0.6 % (0.0-0.4); Lymphocytes Absolute Auto 1.5 X10*3/uL (1.2-4.9); Lymphocytes Percent Auto 29.8 % (20-40); Mean Corpuscular HGB Conc 33.6 g/dl (31.0-36.0); Mean Corpuscular Hemoglobin 30.2 pg (27.0-33.0); Mean Corpuscular Volume 89.7 fL (80.0-98.0); Mean Platelet Volume 9.2 fL (9.4-12.4); Monocytes Absolute Auto 0.5 X10*3/uL (0.1-1.2); Monocytes Percent Auto 10.1 % (2-11); Neutrophils Absolute Auto 2.8 x10*3/uL (2.0-8.3); Neutrophils Percent Auto 56.4 % (45-73); Platelet Count 211 X10*3/uL (160-400); Red Blood Count 4.87 X10*6/uL (4.60-5.80); Red Cell Distribution Width 13.8 % (11.0-16.0); White Blood Count 4.9 X10*3/uL (4.8-10.8)
[2024-07-08 18:23] LABS: Alanine Aminotransferase 46 U/L (0-40); Albumin Level 3.9 g/dL (3.5-5.0); Alkaline Phosphatase 70 U/L (39-117); Anion Gap 15 (12-20); Aspartate Amino Transferase 35 U/L (5-37); Bilirubin Total 0.4 mg/dL (0.0-1.0); Blood Urea Nitrogen 15 mg/dL (9-16); Calcium 8.8 mg/dL (8.4-10.2); Carbon Dioxide 24 mmol/L (22-29); Chloride 108 mmol/L (96-108); Cholesterol 206 mg/dL (<200); Estimated Glomerular Filt Rate > 60; Glucose Random 132 mg/dL (60-115); HDL Cholesterol 31 mg/dL (>40); LDL Cholesterol Calculated 111 mg/dL (<100); Sodium 143 mmol/L (135-145); Total Protein 7.8 g/dL (6.5-8.0); Triglycerides 323 mg/dL (<150)
[2024-07-08 18:24] LABS: Estimated Average Glucose 117 mg/dL; Hemoglobin A1C 153.2606 umol/L; Hemoglobin A1c % 5.7 % (<6.0); Total Hemoglobin (HGBA1C) 3947.5758 umol/L
== END 2024-07-08 15:40 | disposition home or self-care (01) ==
LOC: HO.CHCLDS 15:39
PROVIDERS: Visit Provider Internal Medicine
DX: E03.9 Hypothyroidism, unspecified (principal); R73.03 Prediabetes
CPT/HCPCS: 36415; 80053; 80061; 83036; 85025

== ENCOUNTER 2024-07-14 14:13 | Outpatient (REF) | payer MEDICARE, MEDICAID, SELFPAY ==
[2024-07-15 04:14] LABS: ~HepC Num1 0.21 S/CO (0.00-0.79); ~Hepatitis C Antibody Nonreactive (Nonreactive)
== END 2024-07-14 14:14 | disposition home or self-care (01) ==
LOC: HO.CHCLDS 14:13
PROVIDERS: Visit Provider Internal Medicine
DX: R74.01 Elevation of levels of liver transaminase levels (principal); R53.83 Other fatigue
CPT/HCPCS: 36415; 86803; 99212

== ENCOUNTER 2024-07-14 14:48 | Outpatient (AMB) | payer MEDICARE, MEDICAID, SELFPAY ==
--- NOTE | 2024-07-14 15:05 | AM.OFFWIN_ITS ---
Intake Vital Signs 07/14/24 15:06 Height 5 ft 9 in Weight 213 lb BMI 31.5 BP 120/80 Blood Pressure Location Lt brachial Position Sitting Pulse 88 Pulse Source Pulse Oximeter Pulse Oximetry (%) 97 Oxygen Delivery Method Room Air Intake Visit Reasons: EP Weak, fatigue Intake Note: Patient here for weakness, overall fatigued for about 3 days. Patient Tobacco Use Status: Former Tobacco user Allergies Penicillins Allergy (Severe, Verified 07/14/24 15:07) Anaphylaxis acetaminophen [From Percocet] Adverse Reaction (Mild, Verified 07/14/24 15:07) Itching oxycodone [From Percocet] Adverse Reaction (Mild, Verified 07/14/24 15:07) Itching Do you need a note to return to daycare/school/sports/work: No HPI HPI Comments History of Present Illness Details Patient is a 49-year-old male complaining of fatigue for the last 3 days. He tells me that 6 days ago, he was diagnosed with strep throat and given amoxicillin which she has been taking as prescribed. He tells me he slept most of the day yesterday because he was so tired. He does not feel like himself. He did just do some labs for his doctor that were ordered previously and had nothing to do with a strep throat. [facility] Medical History Kidney disease Migraine Fatty liver Hypertension High cholesterol Arthritis Hypothyroid Diabetes 1.5, managed as type 2 Surgical History No pertinent past surgical history Family History Mother Clotting disorder Social History Housing: Apartment Patient Tobacco Use Status: Former Tobacco user e-Cigarette/Vaping Use: Never Used service: Yes Current occupational status: disabled Current occupation: Disabled [place] Cognitive needs: No Hearing needs: No Vision needs: No Review of Systems Const All systems reviewed & are unremarkable except as noted in HPI and below Physical Exam Vital Signs: Last Vital Signs Pulse 88 07/14/24 15:06 BP 120/80 07/14/24 15:06 Pulse Ox 97 07/14/24 15:06 Oxygen Delivery Method Room Air 07/14/24 15:06 BMI result Body Mass Index 31.5 Const General: cooperative, healthy appearing, comfortable, no acute distress and well developed Orientation/consciousness: patient oriented x3 Limitations: no limitations HEENT Head: Yes normal to inspection Ears: hearing grossly normal bilaterally General nose exam: Normal external nose present Face and sinus: Yes normal facial exam Throat: Yes posterior oropharynx abnormal (Erythema with exudates) Eyes General: appearance normal, both eyes and all related structures Neck Neck: Yes normal visual inspection and Yes full ROM Resp Effort & Inspection: normal respiratory effort and able to speak in complete sentences Skin General skin exam: no rashes or lesions noted Neuro General: patient oriented x3 Extrem General: Yes normal to inspection Assessment & Plan Assessment & Plan (1) Fatigue: Code(s): R53.83 - Other fatigue Qualifiers: Fatigue type: unspecified Qualified Code(s): R53.83 - Other fatigue Plan: Explained to patient that his body is fighting an infection so it is normal to be fatigue during this time period. He should get lots of rest, hydrate and continue taking his antibiotics, he should feel better in a few days. He continues to feel fatigued in the next week or so, he should follow up with his primary care doctor. Plan See above Coding Level of Care Code Est Pt Level 3 (20170) Diagnoses Fatigue, unspecified type R53.83 Fatigue type: unspecified
[2024-07-14 15:06] VITALS: BP 120/80; PULSE 88; O2SAT 97; BMI 31.5
== END 2024-07-14 15:45 | disposition home or self-care (01) ==
PROVIDERS: PCP Family Medicine; Visit Provider Physician Assistant
DX: R53.83 Other fatigue (principal)

== ENCOUNTER 2024-11-07 16:13 | Outpatient (REF) | payer MEDICARE, MEDICAID, SELFPAY ==
--- OUTSIDE RECORDS SUMMARY | 2024-11-07 18:49 | XMS_ITS | Data Portability ---
Author Organization [place] - [facility], , [facility] Address [address] [place] [address] Care Team Providers Care Maintenance Dispatcher Name Role Phone DARLINE MORROW OTHER LARA LYNNE Primary Care Provider Assessment No assessment recorded. Plan of Treatment Reminders Order Date Submit Date Provider Last Modified By Organization Details Last Modified Time Details Appointments None recorded. Lab rapid strep group A, throat [address], [address] [place] [address], [address], 5 14:10:45 Referral neurologis t referral - Daily headaches x years; a few migraines; was tried on topamax which broke migraines but side effects were intolerabl e. please help with daily headache thx. 2016 017 ALEXEY [facility] Neurology, [address] [facility], [place], [address], 8 05:00:53 gastroente rologist referral - needs monitoring and advice for IBS; having stomach pain with any intake; thinks he needs UGI. 2016 017 ALEXEY Leary MD, [address] [facility], [facility] [address], [place], [address], 8 05:00:21 physical therapist referral - R shoulder pain, tenderness on palpation of R AC joint, pain at 90 degrees flexion R arm, increased pain with adduction and abduction but full ROM, sign. decrease in ROM with internal rotation R 2015 016 [facility], [address] [place] [address], [address], 6 08:06:49 Procedures None recorded. Surgeries None recorded. Imaging x-ray, shoulder, 2 views 2015 016 [facility] (Imaging), [address] , [place], [address], 6 07:43:43 Medication Orders Imitrex 50 mg tablet 2016 017 [facility], [address] [place], [address], 7 15:31:03 Pepcid 20 mg tablet 2016 017 [facility], [address] [place], [address], 7 14:46:22 Topamax 25 mg tablet 2016 017 [facility], [address] [place], [address], 7 15:25:50 piroxicam 20 mg capsule [address] [id number], [address] [place], [place], [id number], 7 14:11:01 Patient TargetsNo targets recorded. Patient Instructions Encounter Date Encounter Id Patient Instructions Last Modified By Organization Details Last Modified Time 08/06/2015 [id number] upper respirator y infection (cold): care instructions [email or web address] Not available 08/06/2015 15:06:23 09/28/2015 [id number] agree mgump Not available 09/28 17:33:38 Reason for Referral R shoulder pain, tenderness on palpation of R AC joint, pain at 90 degrees flexion R arm, increased pain with adduction and abduction but full ROM, sign. decrease in ROM with internal rotation R Referring Physician: Gretchen Maria, Family Medicine, Encounter Date: 09/28/2015 needs monitoring and advice for IBS; having stomach pain with any intake; thinks he needs UGI. Referring Physician: Lyndsey Queen, [facility] Medicine, Encounter Date: 07/07/2017 Neurologist Referral for Shirlene ly headache Daily headaches x years; a few migraines; was tried on topamax which broke migraines but side effects were intolerable. please help with daily headache thx. Referring Physician: Lyndsey Queen [facility] Medicine, Encounter Date: 07/21/2017 Results Created Date Observation Date Name Description Value Unit Range Abnormal Flag Note LastModifiedBy Organization Detail LastModifiedTime 08/06/20 15 08/06/2015 rapid strep group A, throa t Strep negati ve Not Available [address], [address], 08/06/2015 13:48:42 09/28/19 16 09/28/2015 x-ray , shoul jalyn, 2 views OBSERV ATION: Right should er 3 views HISTOR Y: Posttr aumati c pain. COMPAR NANDA: None Findin gs: Minera lizati on, the joint spaces , and alignm ents are normal . No signif icant degene rative change s or posttr aumati c abnorm alitie s are presen t. IMPRES ELVIS: No signif icant radiog raphic abnorm alitie s. CODE: 26142 POS: VM[employer] Electr onical ly signed José Miguel mattson Physic fany: Mauro Carver [email or web address] [facility] (Imaging) [address], [place], [address], 10/04/2015 14:22:35 Result Notes None recorded. 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 ZOYA Maritnez [facility] [place], [address], [facility] 6 13:35:28 Breathing painful 90665274 Completed 200607/27/2013 ZOYA Martinez [place], [place], [address], [facility] 6 13:35:28 Finding by method 541192748 Completed 200612/16/2011 Gretchen Maria NP [address], [place], [address], [facility] 6 13:35:28 Impotence of organic origin Active ZOYA Martinez [place], [place], [address], [facility] 6 13:35:28 Abdominal pain 09591395 Completed 200512/16/2011 Gretchen Maria NP [address], [place], [address], [facility] 6 13:35:28 Contact dermatitis 18946115 Completed 200512/16/2011 Gretchen Maria NP [address], [place], [address], [facility] 6 13:35:28 Cough 85528649 Completed 07/27/2013 Gretchen Maria NP [address], [place], [address], [facility] 6 13:35:28 Cough 26931282 Completed 200612/16/2011 Gretchen Maria NP [address], [place], [address], [facility] 6 13:35:28 Periapical abscess without sinus tract Completed 200512/16/2011 ZOYA Martinez [place], [place], [address], [facility] 6 13:35:28 Pertussis 02269638 Completed 05/24/2015 [place], [address], [facility] 6 13:35:28 Herpes simplex 53717378 Active Gretchen Maria NP [address] [place], [place], [address], [facility] 6 13:35:28 Diarrhea 50951644 Completed 200512/16/2011 [place], [address], [facility] 6 13:35:28 Abnormal weight gain 711762154 Completed 200512/16/2011 Gretchen Maria NP [place], [place], [address], [facility] 6 13:35:28 Low back pain 231738024 Completed 01/09/2015 [place], [address], [facility] 6 13:35:28 Problem Notes None recorded. Procedures Surgical History Date Name Laterality Status Provider Name and Address Organization Details Recorded Time 09/07/19 14 Back Surgery completed Ryan Webster MD [address] [place] [address], [address], [facility] 01/09/2015 16:01:35 09/15/19 13 Nebulizer Tx completed Yaquelin Mojica MA [facility] 09/15/2012 14:30:26 09/07/19 13 Other (specify) completed Ryan Webster MD [address] [place] [address], [address], [facility] 01/09/2015 16:07:39 09/07/19 07 Other (specify) completed Ryan Webster MD [address] [place] [address], [address], [facility] 01/09/2015 16:05:59 Appendectomy completed Ryan Webster MD [address] [place] [address], [address], [facility] 01/09/2015 16:05:59 Imaging Results Imaging Date Name Status [facility]Modified by [facility] Details LastModified Time 09/28/2015 x-ray, shoulder, 2 views completed [email or web address] [facility]) [address], [place], [address], 10/04/2015 14:22:35 Procedure Notes None recorded. Medical Equipment None Reported. Allergies Allergen ID Allergen Name Allergen Category Reaction Reaction Severity Criticality Documentation Date Start Date Code Code System Note Provider Name and Address Organization Details Recorded Time Topamax medicatio n dizziness Not available Not available 07/21/2017 42845 3 RxNorm feels like he is out of it. Xiao Menjivar LPN null, [facility] 7 15:03:53 [address]60[address] tramadol medicatio n Not available Not available Not available 12/21/2009 45965 RxNorm Eunice RADHA Rdz [facility], [facility] 2 12:01:42 28226 Product containin g penicilli n (product) medicatio n anaphylax is Not available Not available 12/21/2009 01045 8001 SNOMED Not Available [facility] 1 06:05:41 Medications Name Sig Start Date Stop Date Status Note LastModified by Organization Details LastModified Time Flomax 0.4 mg capsule Take 1 capsule every day by oral route. 2010 active Not Available Not Available Not Avai lable Abreva 10 % topical cream Apply thin film 5 times daily until lesion resolves 2011 active Not Available Not Available Not Avai lable nabumeton e 750 mg tablet Take 1 tablet twice a day by oral route. 2011 active Not Available Not Available Not Avai lable Topamax 25 mg tablet 1 tablet daily x 1 week; then 1 tablet twice daily x 1 week; then 2 in am 1 in pm x 1 week then 2 tabs in am and 2 tabs in pm 07/21 completed no longer on Not Available Not Available Not Available azithromy jatin 250 mg tablet 2 tablets day 1, 1 tablet days 2-5 2011 active Not Available Not Available Not Avai lable benzonata te 200 mg capsule Take 1 capsule 3 times a day by oral route for 10 days. 09/04 completed Not Available Not Available Not Available Vicodin 5 mg-500 mg tablet Take 1 tablet 3 times a day by oral route for 28 days. 06/04 completed Not Available Not Available Not Available valacyclo vir 1 gram tablet Take 2 tablets every 12 hours by oral route for one day at first onset of cold sore. 2012 active Not Available Not Available Not Avai lable alendrona te 70 mg tablet Take 1 tablet by mouth weekly in AM before food, drink, or other medicine , with water. Remain sitting up for 30 minutes after. 2010 active Not Available Not Available Not Avai lable acyclovir 400 mg tablet Take 1 tablet every 8 hours by oral route for 5 days. 07/07 completed no longer on Not Available Not Available Not Available tramadol 50 mg tablet Take 1 tablet every 6 hours by oral route for 30 days. 03/26 completed patient reports feeling hyper Not Available Not Available Not Available Imitrex 50 mg tablet Take 1 tablet by oral route for 30 days. 2016 active Not Available Not Available Not Avai lable meloxicam 7.5 mg tablet Take 1 tablet every day by oral route. 2011 active Not Available Not Available Not Avai lable citalopra m 20 mg tablet Take 1 tablet every day by oral route. 07/07 completed no longer on Not Available Not Available Not Available amitripty line 25 mg tablet Take 1 tablet every day by oral route at bedtime. 2009 active Not Available Not Available Not Avai lable dicyclomi ne 20 mg tablet Take 1 tablet 4 times a day by oral route. 07/07 completed hasn't been taking 05/24/15 Not Available Not Available Not Available benzonata te 100 mg capsule Take 1 capsule 3 times a day by oral route. 2012 active Not Available Not Available Not Avai lable erythromy jatin 5 mg/gram (0.5 %) eye ointment small amount 3 times a day 2014 active Not Available Not Available Not Avai lable indometha jatin 50 mg capsule Take 1 capsule 3 times a day by oral route for 30 days. 06/06 completed Not Available Not Available Not Available codeine 10 mg-guaife nesin 100 mg/5 mL Syrup Take 10 mL every 4 hours by oral route. 2012 active Not Available Not Available Not Avai lable gabapenti n 300 mg capsule Take 1 capsule 3 times a day by oral route for 30 days. 2010 active pt. states that is not helping Not Available Not Available Not Available diclofena c sodium 50 mg tablet,de layed release Take 1 tablet every 8 hours by oral route with food. 02/11 completed Not Available Not Available Not Available Pepcid 20 mg tablet Take 1 tablet twice a day by oral route for 30 days. 2016 active Not Available Not Available Not Avai lable albuterol sulfate HFA 90 mcg/actua tion aerosol inhaler Inhale 2 puffs every 4 hours by inhalati on route as needed. 2012 active Not Available Not Available Not Avai lable Percocet 5 mg-325 mg tablet Take 1 tablet every 6 hours by oral route. 2010 active Not Available Not Available Not Avai lable ketoconaz ole 2 % topical cream Apply thin film twice daily to affected area after treating with Selsun Blue as directed . 2012 active Not Available Not Available Not Avai lable piroxicam 20 mg capsule Take 1 capsule every day by oral route for 21 days. 07/07 completed no longer on Not Available Not Available Not Available Bactrim DS 800 mg-160 mg tablet Take 1 tablet every 12 hours by oral route for 14 days. 2014 active Not Available Not Available Not Avai lable Levitra 20 mg tablet Take 1 tablet every day by oral route for 4 days. 09/25 completed Not Available Not Available Not Available Topamax 50 mg tablet 1 tab twice a day; can increase by 1 tab a week to 2 tabs twice a day 07/21 completed no longer on Not Available Not Available Not Available Vitals Date Recorded Body height Body mass index (BMI) Body weight Heart rate Systolic blood pressure Diastolic blood pressure Provider Name and Address Organization Details Last Updated DateTime 7 175.26 cm 31.9 kg/m2 07972.9 5 g 78 /min 102 mm[Hg] 60 mm[Hg] Xiao Menjivar LPN [facility] 7 15:25:26 Date Recorded Body height Body mass index (BMI) Body weight Heart rate Systolic blood pressure Diastolic blood pressure Provider Name and Address Organization Details Last Updated DateTime 7 175.26 cm 32 kg/m2 12868.5 4 g 90 /min 106 mm[Hg] 64 mm[Hg] Xiao Menjivar [facility] 7 14:16:30 Date Recorded Body height Body mass index (BMI) Body weight Heart rate Systolic blood pressure Diastolic blood pressure Provider Name and Address Organization Details Last Updated DateTime 7 175.26 cm 32 kg/m2 91548.5 4 g 90 /min 110 mm[Hg] 66 mm[Hg] Xiao Menjivar [facility] 7 15:06:14 Date Recorded Body height Body mass index (BMI) Body weight Body temperature Heart rate Systolic blood pressure Diastolic blood pressure Provider Name and Address Organization Details Last Updated DateTime 5 175.26 cm 33 kg/m2 982610. 836806 g 98.7 [degF] 84 /min 120 mm[Hg] 80 mm[Hg] Chantale Vega [facility] 5 13:34:15 Date Recorded Body height Provider Name an d Address Organization Details Last Updated DateTime 09/28/2015 175.26 cm Kimmie Velasquez [facility] 09/28/2015 13:22:24 Date Recorded Body mass index (BMI) Body weight Heart rate Systolic blood pressure Diastolic blood pressure Provider Name and Address Organization Details Last Updated DateTime 09/28/2015 33.8 kg/m2 127400.6 5273 g 88 /min 118 mm[Hg] 80 mm[Hg] Arin Green MA [facility] 6 13:34:51 Social History Question Answer Notes LastModified by Organizat ion Details LastModified Time Tobacco Smoking Status Former Smoker Quit 1999 [place] Collier [facility] 11/14/2011 13:11:54 What Is Your Level Of Alcohol Consumption? None Quit 1999 - Former Alcoholic Information not available 01/09/2015 What Is Your Level Of Caffeine Consumption? Occasional Information not available 01/09/2015 How Much Tobacco Do You Chew? None [email or web address] Information not available 07/24/2011 What Type Of Diet Are You Following? REGULAR Healthy, Salads, Cereals, Minimal Soda Information not available 01/09/2015 Which Illicit Or Recreational Drugs Have You Used? 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 6-10yearssinc [email or web address] e Information not available 01/09/2015 How Many Days In The Past Year Have You Had A Heavy Drinking Consumption (4+ Female, 5+ Male)? 0 08/06/15 [email or web address] Information not available 08/06/2015 Are There Any Guns Present In Your Home? No [email or web address] Information not available 07/24/2011 Live Alone Or With Others? With Others Friend - Ivis (platonic) Information not available 12/21/2009 CSRP - Narcotics No [email or web address] Information not available 05/27/2012 CSRP Contract Signed And Discussed Yes Discussed And Signed 03/19/2012 [email or web address] Information not available 03/19/2012 Marital Status Single Information not available 07/24/2011 Mosquito Repellent Used Routinely No [email or web address] Information not available 07/24/2011 What Was The Date Of Your Most Recent Tobacco Screening? 07/21/2017 Information not available 03/30/2019 How Many Children Do You Have? 1 Mel (1999) - Lives With Mom In [place] - Estranged Information not available 12/21/2009 Seat Belts Used Routinely Yes Information not available 01/09/2015 Are You Sexually Active? No Information not available 01/09/2015 Smoke Alarm In Home Yes [email or web address] Information not available 07/24/2011 What Types Of Sporting Activities Do You Participate In? Fishing Information not available 01/09/2015 General Stress Level High Information not available 01/09/2015 Do You Use Sunscreen Routinely? No [email or web address] Information not available 07/24/2011 Sex: Unknown Functional Status None recorded. Mental Status None recorded. Family History Relationship Description Onset Age of this Age Resolved Age Notes LastModified by Organization Details LastModified Time Maternal Grandfather Malignant tumor of pancreas 83 [email or web address] Not available 2015 13:51:42 Mother Primary malignant neoplasm of intrahepatic bile duct [email or web address] Not available 2015 13:51:42 Father Epilepsy [email or web address] Not available 09/28/2015 13:51:42 Brother Well adult Not availa ble 09/28/2015 13:51:42 Sister Medical history unknown 1/2 sister [email or web address] Not available 09/28/2015 13:51:42 Daughter Well adolescent [email or web address] Not available 09/28 13:51:42 Medical History Condition Response Chronic Neck Pain Y Obesity Y MUSCULOSKELETAL Y Chronic Back Pain Y Immunizations Vaccine Type Date Status Note Provider Nam e and Address Organization Details Recorded Time Tdap 11/24/2012 completed Not Available [facility] 09/24/2019 02:16:05 Past Encounters Encounter ID Performer Location Encounter Start Date Encounter Closed Date Diagnosis/Indication Diagnosis SNOMED-CT Code Diagnosis ICD10 Code Diagnosis Note [id number] [facility], OFFICE [address] [place] [address] 06/24/2006 09:44:26 06/25/2006 09:09:10 [id number] [facility] [address] [place] [address] 06/24/2006 10:51:30 06/24/2006 10:51:47 [id number] [facility], OFFICE [address] [place] [address] 06/25/2006 13:27:08 06/25/2006 16:23:01 [id number] [facility], OFFICE [address] [place] [address] 07/07/2006 16:39:17 09/27/2008 02:02:29 [id number] [facility], OFFICE [address] [place] [address] 07/15/2006 14:20:03 07/16/2006 11:10:40 [id number] Radiology , [address] [address] 10/19/2006 17:23:27 10/20/2006 07:28:54 [id number] Radiology , [address] [address] 10/19/2006 00:00:00 09/27/2008 02:02:29 [id number] , [facility], OFFICE [address] [place] [address] 10/19/2006 16:30:48 10/20/2006 07:48:12 [id number] , [facility], OFFICE [address], [place] [address] 12/21/2009 12:57:44 12/24/2009 08:41:31 [id number] , [facility], OFFICE [address] [facility] [address], [place] [address] 06/13/2010 12:36:30 06/14/2010 08:32:15 [id number] , [facility], OFFICE [address] [facility] [place] [place], [place] [address] 07/10/2011 08:51:50 07/10/2011 10:07:25 [id number] , [facility], OFFICE [address], [place] [address] 07/23/2011 13:24:31 07/24/2011 08:34:13 [id number] , [facility], OFFICE [address], [place] [address] 09/03/2011 16:05:37 09/04/2011 08:21:46 [id number] [facility], OFFICE [address] [place] [address] 11/14/2011 12:42:00 11/14/2011 14:17:22 [id number] [facility], OFFICE [address] [place] [address] 12/16/2011 13:51:43 12/18/2011 11:50:[id number] [facility], OFFICE [address] [place] [address] 01/07/2012 15:31:27 01/07/2012 16:08:[id number] [facility], OFFICE [address] [place] [address] 01/08/2012 11:41:18 01/08/2012 12:44:44 [id number] , [facility], OFFICE [address] [place] [address] 02/06/2012 11:01:13 02/09/2012 07:04:04 [id number] , [facility], OFFICE [address] [place] [address] [place] [address] 03/19/2012 15:18:09 03/19/2012 17:15:36 [id number] , [facility], OFFICE [address] [place] [address] [place] [address] 03/24/2012 15:50:25 03/24/2012 16:46:32 [id number] , [facility], OFFICE [address] [place] [address] 04/09/2012 11:09:06 04/09/2012 11:57:13 [id number] , [facility], OFFICE [address] [place] [address] [place] [address] 05/07/2012 16:41:19 05/07/2012 17:14:48 [id number] CARI Langley , [facility], OFFICE [address] [place] [address] 08/25/2012 10:54:56 08/25/2012 12:23:10 [id number] CARI Langley , [facility], OFFICE [address] [place] [address] [place] [address] 09/15/2012 14:07:54 09/15/2012 14:47:52 [id number] [facility], [facility], OFFICE [address] [place] [address] 09/21/2012 14:07:10 09/21/2012 15:18:43 [id number] Wendy Velasquez , [facility], OFFICE [address] [place] [address] 11/24/2012 10:44:33 11/24/2012 12:49:13 [id number] , [facility], OFFICE [address] [place] [address] 01/09/2015 15:21:38 01/09/2015 16:22:52 Irritable bowel syndrome [id number] Omega's symptoms are diagnostic of IBS, assuming other etiologies for his pain and altered bowel function have been excluded by prior evaluation . [facility]. We can discuss whether additional testing is needed in an month at his follow up collintashi crespo. We discussed below strategies for managing his symptoms. Irritable bowel syndrome (IBS) is a chronic condition of the digestive system. Its primary symptoms are abdominal pain and altered bowel habits (eg, constipati on and/or diarrhea), but these symptoms have no identifiab le cause. IBS is the most commonly diagnosed gastrointe stinal condition and an estimated 10 to 20 percent of people in the general population experience symptoms of IBS. Several treatments and therapies are available for irritable bowel syndrome. These measures help alleviate symptoms, but do not cure the condition. The chronic nature of irritable bowel syndrome and the challenge of controllin g its symptoms can be frustratin g for both patients and healthcare providers. Although irritable bowel syndrome can produce substantia l physical discomfort and emotional distress, most people with irritable bowel syndrome do not develop serious long-term health conditions . Dietary approaches include eliminatio n of certain trigger foods (lactose, carbohydra ashley, gas-produc ing foods) and increasing dietary fiber. Some medication s may be useful for controllin g symptoms and these may include antispasmo dics and antidepres sants. There are cerrtain specialize d medication s for treating women with diarrhea or constipati on predominan t syndromes. Lifestyle issues likely relate significan tly to IBS; these include stress, co-morbid mood disorders, inadequate sleep, unhealthfu l diet, smoking, and inactivity . These should be addressed. Return to clinic for fevers, bloody or black stools, unexplaine d weight loss, or nocturnal stooling. [id number] JOHANNA Francois, [facility] [address] [facility] [place] [address] 03/19/2015 13:38:06 03/19/2015 16:06:14 Cellulitis of foot [id number] he reports significan t increased pain in the last day or 2 and this is now 5 days since the initial puncture wound/ suggestive of a bacterial infection that appears to be low-grade/ this would be high risk in the foot for a significan t infection and possibly a an osteomyeli tis. For that reason we definitely treat for 7 days with Bactrim for MRSA/his tetanus is up-to-date / he is warned to return if this gets any worse or if it's not better next week Allergic conjunctivitis [id number] otc drops/ if not better, can use erythro drops [id number] Leo Sweeney MA , [facility] [address] [place] [address] 03/22/2015 14:38:20 03/22/2015 15:00:27 Irritable bowel syndrome [id number] May well be IBS but pt is a poor historian. As it has been going on for a long time (years, though he can't specify), I recommende d a trial of standard meds for IBS--dicyc lomine and an SSRI. He is willing. Discussed indication s for new prescripti ons, risks and benefits of medication s, common side effects and how to manage, and reasons to notify prescriber of adverse effects or discontinu ation. If not helpful, should follow up for recheck / possible GI referral. [id number] Ryan Webster MD , [facility] [address] [place] [address] 05/24/2015 11:31:56 05/25/2015 08:52:59 Abdominal pain [id number] Omega comes with a very vague history and is quick to be frustrated by clarifying questions. He ultimately explodes regarding his perception that I was no listening to him and storms out to go to the ER. If Omega chooses to return for care here, it seems it will be important to keep questions simple, explain things carefully, and validate his concerns. I think ultimately Omega will need to see a gastroente rologist given his limitation s and level of concerns. [id number] Kala Vasquez , [facility] [address] [place] [address] 06/07/2015 17:03:57 06/08/2015 11:00:03 Acute upper respiratory infection [id number] J06.9 URI is a viral illness of the upper airways. It is not bacterial and does not benefit from antibiotic s. Average duration of URI is 7-10 days. Recommende d symptomati c treatments including NSAIDS or APAP. Local honey is an effective anti-tussi ve (best studies on buckwheat honey). Chicken soup, salt water gargles also effective. Herpes simplex [id number] B00.1 [id number] , [facility] [address] [place] [address] 08/06/2015 13:20:45 08/07/2015 08:02:19 Upper respiratory infection [id number] J06.9 he's been ill for several days with significan t pharyngiti s but no exudate and not strep.//Co ntinue symptomati c and expect improvemen t over the next 3 or 4 days [id number] Letha Villasenor MD , [facility] [address] [facility] [place] [address] 09/28/2015 13:16:30 09/28/2015 13:51:27 Shoulder pain [id number] M25.511 DDX; musculoske letal, rotator cuff, labrum tear 2 weeks of R shoulder pain worsened with fall in which patient braced himself with R arm and felt intense pain. Based on exam and pain in R shoulder @ 90 degrees flexion, pain with adduction, and significan t decrease in ROM with internal rotation patient instructed to ice regularly, take long acting NSAID with food, and f/u with PT. Will consider sports medicine referral if PT not effective and Xray findings do not warrant orthopedic referral. 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 keep headache diary, follow up in 2 weeks. [id number] Lyndsey Queen MD , [facility], OFFICE [address] [place] [address] 07/07/2017 13:44:54 07/07/2017 14:54:23 Migraine [id number] G43.909 started topamax and is much better. increase to 50 mg BID, then stay there. follow up 2 weeks; expect side effects from topamax to julius in 2-4 weeks. Irritable bowel syndrome [id number] K58.9 needs new GI [id number] Lyndsey Queen MD , [facility], OFFICE [address] [place] [address] 07/21/2017 14:47:16 07/21/2017 15:36:56 Daily headache [id number] 03 R51 try migraine abortive therapies, follow up 4 weeks to check on progress; refer to Neuro headache clinic for daily headache x years. Health Concerns Section Related Observation LastModified by Organization Detai ls LastModified Time None Recorded Concern Status LastModified by Organization Details LastModified Time None Recorded Advance Directives Directive None Recorded Payers Encounter Date Sequence Insurance Name Policy Number Policy Woodall Covered Member ID Woodall Member ID Guarantor Name 08/06/2015 1 [place] [employer] Omega E Binu [id number] Omega E Binu 08/06/2015 2 [place] Omega E Binu [id number] Omega E Binu 09/28/2015 1 [place] [employer] Omega E Binu [id number] Omega E Binu 09/28/2015 2 [place] Omega E Binu [id number] Omega E Binu 06/22/2017 1 [place] [employer] Omega E Binu [id number] Omega E Binu 06/22/2017 2 [place] Omega E Binu [id number] Omega E Binu 07/07/2017 1 [place] [employer] Omega E Binu [id number] Omega E Binu 07/07/2017 2 [place] Omega E Binu [id number] Omega E Binu 07/21/2017 1 [place] [employer] Omega E Binu [id number] Omega E Binu 07/21/2017 2 [place] Omega E Binu [id number] Omega E Binu Notes Date Note Type Note Provider Name and Address Organization Details Recorded Time 09/28/2015 text/html C/O 2 weeks of shoulder pain worsened when patient slipped and fell on ice last week, he braced himself with his R arm and felt intense pain in shoulder with fall. States intermittent numbness of middle, ring and pinky fingers on R hand when sleeping. Taking no OTC to help pain, has not been using ice or heat, used old RX of hydrocodone 1 tab every 4 hours for pain. Every movement makes it worse. Denies hitting head, neck pain, or back pain. Letha Villasenor MD [address] [place], [address], [facility] 09/28/2015 17:33:39 06/22/2017 text/html migraines starte d 2-3 years ago; nausea with headaches; has had daily headaches for 2-3 years; at least every other day. wakes with headaches, it sometimes goes away and then will come back in the evening. moves all over head; worst ones always right above jewish. pounding aching quality Lyndsey Queen MD [address] [place], [address], [facility] 06/22/2017 16:26:07 07/07/2017 text/html migraines starte d 2-3 years ago; nausea with headaches; has had daily headaches for 2-3 years; at least every other day. wakes with headaches, it sometimes goes away and then will come back in the evening. moves all over head; worst ones always right above jewish. pounding aching quality now on 25 mg in the morning and 50 mg at night; headaches are improving; noticing dizziness and visual disturbances; friend reassured him it will take 4 weeks. Lyndsey Queen MD [address] [place], [address], [facility] 07/07/2017 14:51:01 07/21/2017 text/html migraines starte d 2-3 years ago; nausea with headaches; has had daily headaches for 2-3 years; at least every other day. wakes with headaches, it sometimes goes away and then will come back in the evening. moves all over head; worst ones always right above jewish. pounding aching quality topamax causing unacceptable side effects Lyndsey Queen MD [address] [place], [address], [facility] 07/22/2017 10:47:36
--- OUTSIDE RECORDS SUMMARY | 2024-11-07 18:49 | XMS_ITS | Clinical Summary ---
Author Organization [employer] Address [address] [facility] [address] [place] [address] Care Team Providers Care National Sales Name Role Phone Jessa Russell MD Primary Care Provider Allergies Active Allergy Reactions Criticality Noted Date Comments Oxycodone-Acetaminophen 07/08/2024 Penicillin G Anaphylaxis High 07/08/2024 Tramadol Rash Low 07/08/2024 pt denies allergy Medications metFORMIN (Glucophage) 500 MG tablet Take 500 mg by mouth 2 times daily. 05/30/20 24 Active levothyroxine (Synthroid, Levoxyl) 125 MCG tablet Take 125 mcg by mouth Once per day. Active atorvastatin (Lipitor) 20 MG tablet Take 20 mg by mouth Once per day. Active levothyroxine (Synthroid, Levoxyl) 125 MCG tablet Take 125 mcg by mouth Once per day. 05/30/20 24 Active fenofibrate (Tricor) 48 MG tabletIndication s:Hypertriglycer idemia Take 1 tablet (48 mg) by mouth Once per day. 30 tablet 11 07/14/20 24 025 Active hydrOXYzine pamoate (Vistaril) 50 MG capsuleIndicatio ns:Chronic insomnia 50 to 100 mg at bedtime 60 capsule 3 11/08/19 25 Active valACYclovir (Valtrex) 1 g tabletIndication s:Herpes labialis,Herpes labialis without complication Take 1 tablet (1,000 mg) by mouth 2 times daily for 7 days. 14 tablet 11/08/19 25 025 Active hydrOXYzine pamoate (Vistaril) 50 MG capsuleIndicatio ns:Chronic insomnia Take 1 capsule (50 mg) by mouth if needed at bedtime for itching. 30 capsule 2 08/08/20 24 025 Discontinued hydrOXYzine pamoate (Vistaril) 50 MG capsuleIndicatio ns:Chronic insomnia TAKE 1 CAPSULE BY MOUTH AT BEDTIME NEEDED FOR ITCHING 30 capsule 10/25/19 25 025 Discontinued(Re order (will not trigger notification to Pharmacy)) Active Problems Problem Noted Date Diagnosed Date Herpes labialis 11/07/2024 Herpes labialis without complication 11/07/2024 Acquired hypothyroidism 07/08/2024 Chronic insomnia 07/08/2024 Chronic hip pain 07/08/2024 Chronic pain in right shoulder 07/08/2024 Degenerative cervical spinal stenosis 07/08/2024 Idiopathic lumbar spinal stenosis 07/08/2024 Migraine headache 07/08/2024 Mixed hyperlipidemia 07/08/2024 Obstructive sleep apnea 07/08/2024 Post-traumatic brain syndrome 07/08/2024 Encounters Date Type Department Care Team Description 11/07/2024 3:45 PM EST Office Visit [facility] [address] [place] [address] Jessa Russell MD Acquired hypothyroidism (Primary Dx); Chronic insomnia; IFG (impaired fasting glucose); Blood glucose abnormal; Herpes labialis; Herpes labialis without complication 11/07/2024 Travel 11/04/2024 Telephone [facility] [address] [place] [address] Jessa Russell MD chart prep 11/03/2024 Travel 11/01/2024 Telephone [facility] [address] [place] [address] Jessa Russell MD No Show 10/31/2024 Travel 10/28/2024 Telephone [facility] [address] [place] [address] Jessa Russell MD chart prep. 10/25/2024 Refill [facility] [address] [place] [address] Jessa Russell MD Chronic insomnia 10/18/2024 Patient Outreach [facility] [address] [place] [phone] Jessa Russell MD Pre-visit Planning (SDOH screening negative and Tobacco screening negative) from Last 3 Months Family History Medical History Relation Name Comments Diabetes Brother Stomach cancer Brother Dementia Father Clotting disorder Mother bile duct cancer Mother Diabetes Mother's Brother Relation Name Status Comments Brother Father Mother Mother's Brother Social History Tobacco Use Types Packs/Day Years Used Date Smoking Tobacco: Former Cigarettes Comments:Has quit smoking fo r 25 years. Depression Answer Date Recorded Patient Health Questionnaire-9 Score 2 11/07/2024 Patient Health Questionnaire-9 Score 2 11/07/2024 Last PHQ-9: Questionnaire Data Not on file 0 11/07/2024 Housing Stability Answer Date Recorded What is your housing situation today? I have julianeascencion miguel 10/18/[address] you li ve. Do you have problems with any of the following? None of the above 10/18/2024 Food Insecurity Answer Date Recorded Within the past 12 months, y ou worried that your food would run out before you got money to buy more: Never True 10/18/2024 Within the past 12 months,th e food you bought just didn't last and you didn't have enough money to get more: Never True 07/2025 Transportation Answer Date Recorded In the past 12 months, has l ack of transportation kept you from medical appts, meetings, work or from getting things needed for daily living? No 10/18/2024 Utilities Answer Date Recorded In the past 12 months, has t he electric, gas, oil or water company threatened to shut off services in your home? No 10/18/2024 Depression Answer Date Recorded Patient Health Questionnaire-2 Score 0 11/07/2024 Internet Access Answer Date Recorded Internet Access Q1 Yes 10/18/2024 Internet Access Q2 Not on file 10/18/2024 Sex and Gender Information Value Date Recorded Sex Assigned at Male 07/04/2024 12:17 PM EDT Legal Sex Male 12:16 PM EDT Gender Identity Male 07/08/2024 2:27 PM EDT Sexual Orientation Straight 07/08/2024 2: 27 PM EDT Last Filed Vital Signs Vital Sign Reading Time Taken Comments Blood Pressure 117/80 11/07/2024 3:39 PM EST Pulse 78 11/07/2024 3:39 PM EST Temperature 36.7 ??C (98.1 ??F) 11/07/2024 3:39 PM ES T Respiratory Rate 20 11/07/2024 3:39 PM EST Oxygen Saturation 98% 11/07/2024 3:39 PM EST Inhaled Oxygen Concentration - - Weight 102 kg (225 lb 6.4 oz) 11/07/2024 3:39 PM EST Height 174 cm (5' 8.5 ) 11/07/2024 3:39 PM EST Body Mass Index 33.77 11/07/2024 3:39 PM EST Plan of Treatment Upcoming Encounters Date Type Department Care Team ([facility] st Contact Info) Description 02/07/2025 1:45 PM EDT Office Visit [facility] PEDS [address] [place], [place] [phone] Jessa Russell MD [address] [place] [address] Health Maintenance Due Date Last Done Comments CT Colonography 1975 Colonoscopy 1975 Colorectal Cancer Screening 1975 FIT DNA/Cologuard 1975 FIT 1975 FOBT 1975 Sigmoidoscopy 1975 Family Planning (PISQ) 1990 Hepatitis B Vaccines (1 of 3 - 19+ 3-dose series) 1994 Zoster Vaccines (1 of 2) 2025 Influenza Vaccine (#1) 2025 06/07/2014 Postp oned from 05/08/2024 (Patient Refused) COVID-19 Vaccine (2 - 2023-2 5 season) 2025 12/04/2020 Postponed from 05/08 (Patient Refused) DTaP/Tdap/Td Vaccines (2 - T d or Tdap) 07/08/2025 11/24/2012 Postponed from 11/24 (Patient Refused) Diabetes: Hemoglobin A1C 07/08/2025 07/08/2024 HIV Screening 07/08/2025 Postponed from 1975 (Patient Refused) Tobacco Screening 07/08/2025 07/08/2024 Alcohol/Substance Use Screening 11/07/2025 11/07/2024 Depression Screening 11/07/2025 11/07/2024, 11/07/2024 SDOH Screening 11/07/2025 11/07/2024 Lipid Panel 07/08/2029 07/08/2024 RSV Patients and Patients Aged 60 years or older (1 - 1-dose 75+ series) 2050 Pneumococcal Vaccine: Pediatrics (0 to 5 Years) and At-Risk Patients (6 to 49) Years) Aged Out 06/07/2014 No longer eligible b ased on patient's age to complete this topic Hepatitis C Screening Completed 07/14/2024 HIB Vaccines Aged Out No longer eligi ble based on patient's age to complete this topic HPV Vaccines Aged Out No longer eligi ble based on patient's age to complete this topic Hepatitis A Vaccines Aged Out No long er eligible based on patient's age to complete this topic IPV Vaccines Aged Out No longer eligi ble based on patient's age to complete this topic Meningococcal Vaccine Aged Out No gumaro aziza eligible based on patient's age to complete this topic RSV under 20 months Aged Out No longe r eligible based on patient's age to complete this topic Rotavirus Vaccines Aged Out No longer eligible based on patient's age to complete this topic Procedures Procedure Name Priority Date/Time Associated Diagnosis Comments POCT GLUCOSE Routine 11/07/2024 4:06 PM EST IFG (impaired fasting glucose) HEPATITIS C AB W/REFL TO HCV RNA, QN, PCR Routine 07/14/2024 2:15 PM EST Transaminitis HEMOGLOBIN A1C Routine 07/08/2024 3:41 PM EDT Acquired hypothyroidism Pre-diabetes LIPID PANEL, STANDARD Routine 07/08/2024 3:41 PM EDT Acquired hypothyroidism from Last 3 Months or Most Recently Relevant to Health Maintenance Results * POCT Glucose (11/07/2024 4:06 PM EST) Glucose Blood, POC 80 60 - 200 mg/dL QC Media Lot # [id number] Lot# Expiration Date [id number] Blood Capillary blood specimen / Unknown 11/07/2024 4:06 PM EST Jessa Russell MD POINT OF CARE TEST ENTER/ED IT ORDERABLES Final Result * Hepatitis C Antibody with Reflex to HCV, RNA, Quantitative, Real-Time PCR (07/14/2024 2:15 PM EST) Hepatitis C Antibody Nonreactive Nonreactive [facility] Comment:Antibodies to HCV no t detected; does not exclude early acuteHCV infection. Blood Venous blood specimen / Unknown 07/14/2024 2:15 PM EST 07/14/2024 5:39 PM EST Jessa Russell MD LAB BLOOD ORDERABLES Final Result Performing Organization Address [facility] Co de Phone Number [facility] [address] [place] [phone] * Hemoglobin A1c (07/08/2024 3:41 PM EDT) Hemoglobin A1c 5.7 <6.0 % [facility] Comment:Hemoglobin A1C Refer ence Range Adults: 4.8 - 6.0 % Non diabetic: < 6.0 % Goal: < 7.0 %Additional Action Suggested: > 8.0 %Note: Hemoglobin A1c results are invalid for patients with abnormal amounts of HbF. Blood transfusions may impact the HbA1c concentration in the patient sample. Estimated Average Glucose 117 mg/dL [facility] Comment:eAG = Estimated ave rage glucose which is %A1C expressed asaverage glucose, using the formula of the T4U-HiohtumVzuriyx Glucose study (ADAG), Diabetes Care, Vol.31,#8,Apr. 2007 Blood Venous blood specimen / Unknown 07/08/2024 3:41 PM EDT 07/08/2024 5:52 PM EDT Jessa Russell MD LAB BLOOD ORDERABLES Final Result Performing Organization Address [facility] Co de Phone Number [facility] [address] [place] [phone] * (ABNORMAL) Lipid Panel, Standard (07/08/2024 3:41 PM EDT) Triglycerides 323(H) <150 mg/dL [facility] Comment:Desirable Triglyceri de: less than 150 mg/dLBorderline High Triglyceride 150-199 mg/dLHigh Triglyceride: 200-499 mg/dLVery High Triglyceride: greater than or equal to 5OO mg/dL Cholesterol 206(H) <200 mg/dL [facility] Comment:Desirable Cholestero l: less than 200 mg/dLBorderline High Cholesterol: 200-239 mg/dLHigh Cholesterol: greater than 239 mg/dL LDL Cholesterol Calculated 111(H) <100 mg/dL [facility] Comment:Desirable LDL: less than 100 mg/dLNear Optimal/Above Optimal LDL: 110- 129 mg/dLBorderline High LDL: 130-159 mg/dLHigh LDL: 160-189 mg/dLVery High LDL: greater than or equal to 190 mg/dL HDL Cholesterol 31(L) >40 mg/dL [facility] Comment:Desirable HDL: great er than 40 mg/dL Note: This HDL assay may give artificially low results in patients with liver disease. Blood Venous blood specimen / Unknown 07/08/2024 3:41 PM EDT 07/08/2024 5:52 PM EDT us Jessa Russell MD LAB BLOOD ORDERABLES Final Result [facility] [address] [place] [phone] from Last 3 Months or Most Recently Relevant to Health Maintenance Insurance [facility] STANDARD MEDICARE Care Teams National Sales Relationship Specialty Start Date End Date Jessa Russell MD [address] [place] [address] [place] [phone] PCP - General Internal Medicine 07/08/24
--- OUTSIDE RECORDS SUMMARY | 2024-11-07 18:49 | XMS_ITS | Encounter Summary ---
Author Organization [employer] Address [address] [facility] [address] [place] [address] Care Team Providers Care Airborne Sensor Specialist Name Role Phone Jessa Russell MD Primary Care Provider [phone] Encounter Details Date Type Department Care Team (Latest Contact Info) Description 11/07/2024 Travel Social History Tobacco Use Types Packs/Day Years Used Date Smoking Tobacco: Former Cigarettes Comments:Has quit smoking fo r 25 years. Depression Answer Date Recorded Patient Health Questionnaire-9 Score 2 11/07/2024 Patient Health Questionnaire-9 Score 2 11/07/2024 Last PHQ-9: Questionnaire Data Not on file 0 11/07/2024 Housing Stability Answer Date Recorded What is your housing situation today? I have juliane miguel 10/18/[address] you [...] Orientation Straight 07/08/2024 2: 27 PM EDT documented as of this encounter Plan of Treatment Upcoming Encounters Date Type Department Care Team (Late st Contact Info) Description 02/07/2025 1:45 PM EDT Office Visit [facility] [address] [place] [address] Jessa Russell MD [address] [place] [address] documented as of this encounter Visit Diagnoses Not on filedocumented in this encounter Additional Health Concerns Assessment Noted Time PHQ-9 Depression Total Score: 2 11/08/19 25 3:46 PM EST documented as of this encounter Care Teams Airborne Sensor Specialist Relationship Specialty Start Date End Date Jessa Russell MD [address] [place] [address] PCP - General Internal Medicine 07/08/24 documented as of this encounter
--- OUTSIDE RECORDS SUMMARY | 2024-11-07 18:49 | XMS_ITS | Encounter Summary ---
Author Organization [employer] Address [address] [place] [address] Care Team Providers Care Rehabilitation Consultant Name Role Phone Jessa Russell MD Primary Care Provider Encounter Details Date Type Department Care Team (Latest Contact Info) Description 10/31/2024 Travel Social History Tobacco Use Types Packs/Day Years Used Date Smoking Tobacco: Former Cigarettes Comments:Has quit smoking fo r 25 years. Housing Stability Answer Date Recorded What is [...] t he electric, gas, oil or water [employer] threatened to shut off services in your home? No 10/18/2024 Internet Access Answer Date Recorded Internet Access [...] Description 02/07/2025 1:45 PM EDT Office Visit [facility] [address] [place] [address] Jessa Russell MD [address] [place] [address] documented as of this encounter Visit Diagnoses Not on filedocumented in this encounter Care Teams Rehabilitation Consultant Relationship Specialty Start Date End Date Jessa Russell MD [address] [place] [address] PCP - General Internal Medicine 07/08/24 documented as of this encounter
--- OUTSIDE RECORDS SUMMARY | 2024-11-07 18:49 | XMS_ITS | Encounter Summary ---
Author Organization [employer] Address [address] [place] [address] Care Team Providers Care Stripper And Printer Name Role Phone Jessa Russell MD Primary Care Provider Encounter Details Date Type Department Care Team (Latest Contact Info) Description 11/03/2024 Travel Social History Tobacco Use Types Packs/Day [...] t he electric, gas, oil or water [employer] threatened to shut off services in your [...] Description 02/07/2025 1:45 PM EDT Office Visit [facility] MED & PEDS [address] [place] [address] Jessa Russell MD [address] [place] [address] documented as of this encounter Visit Diagnoses Not on filedocumented in this encounter Care Teams Stripper And Printer Relationship Specialty Start Date End Date Jessa Russell MD [address] [place] [address] PCP - General Internal Medicine 07/08/24 documented as of this encounter
--- OUTSIDE RECORDS SUMMARY | 2024-11-07 18:49 | XMS_ITS | Clinical Summary ---
Author Organization [facility] Address [address] [place] [address] Phone Care Team Providers Care Car Dealer Name Role Phone Omega Hanna Primary Care Provider [phone] Surgical History Surgery Date Site/Laterality Comments NECK SURGERY 2006 PROCEDURE: HISTORICAL NECK SURGERY; COMMENT: Cervical Spine -Anterior Cervical Decompression and Fusion (3 levels) Dr Bhakta BACK SURGERY 2013 PROCEDURE: HISTORICAL BACK SURGERY; COMMENT: L5-S1 anterir fusion cages in [place] [facility]- Dr Bhakta APPENDECTOMY PROCEDURE: HISTORICAL APPENDECTOMY OTHER SURGICAL HISTORY 2012 Right PROCEDURE: CO INCISION BONE CORTEX PELVIS&/HIP JOINT; COMMENT: Hip core decompression for AVN COLONOSCOPY 2014 PROCEDURE: HISTORICAL COLONOSCOPY; COMMENT: Dr Irby - no report received NECK SURGERY PROCEDURE:NECK SURGERY HIP SURGERY PROCEDURE:HIP SURGERY Medical History Medical History Date Comments IBS (irritable bowel syndrome) 02/03/2018 D X:IBS (irritable bowel syndrome) DDD (degenerative disc disea se), cervical 02/03/2018 DX:DDD (degenerative disc di sease), cervical; COMMENT: Had plate placed DDD (degenerative disc disease), lumbar 8 DX:DDD (degenerative disc disease), lumbar AVN of femur (CMS/HCC) 02/03/2018 DX:AVN of femur ([facility]); COMMENT: Sees Dr Soares Diverticulitis 02/03/2018 DX:Diverticuliti s Alcohol dependence in remiss ion (CMS/HCC) 02/25/2018 DX:Alcohol dependence in rem ission (HCC) Fatty liver 03/03/2018 DX:Fatty liver Cognitive deficits 03/03/2018 DX:Cognitive deficits; COMMENT: Per previous practice Nephrolithiasis 05/04/2018 DX:Nephrolithias is Renal cyst 05/04/2018 DX:Renal cyst Hypothyroid 01/20/2019 DX:Hypothyroid Family History Medical History Relation Name Comments Diabetes Brother No Known Problems Daughter Dementia Father Cirrhosis, Alco hol Abuse, Epilepsy Coronary artery disease Maternal Grandfather pancreatic cancer - from yhis @ 83 Other cancer Maternal Grandmother ? type Cancer Mother Hyperlipidemia Mother Hypertension Mother Diabetes, cance r bile duct Diabetes Uncle maternal Relation Name Status Comments Brother Alive Daughter Alive Father Alive Maternal Grandfather Maternal Grandmother Mother Paternal Grandfather Paternal Grandmother Uncle Social History Tobacco Use Types Packs/Day Years Used Date Smoking Tobacco: Never Assessed Cigarettes 1 9 09/07/1990 - 09/1999 Smokeless Tobacco: Never Alcohol Use Standard Drinks/Week Comments No 0 (1 standard drink = 0.6 oz pur e alcohol) Sex and Gender Information Value Date Recorded Sex Assigned at Not on file Legal Sex Male 3:39 AM EST Gender Identity Not on file Sexual Orientation Not on file Obstetrics History Plan of Treatment Health Maintenance Due Date Last Done Comments Hepatitis A Vaccines (1 of 2 - Risk 2-dose series) 1994 Hepatitis B Vaccines (1 of 3 - 19+ 3-dose series) 1994 Pneumococcal Vaccine: Pediat rics (0 to 5 Years) and At-Risk Patients (6 to 64 Years) (2 of 2 - PCV) 06/07/2015 06/07/2014 Colorectal Cancer Screening: Colonoscopy 08/10/2022 Depression Screening 08/10/2022 HIV Screening 08/10/2022 Medicare Annual Wellness Visit 08/10/2022 Social Influencers of Health Screening 08/10/2022 DTaP,Tdap,and Td Vaccines (2 - Td or Tdap) 11/24/2022 11/24/2012 COVID-19 Vaccine (2 - 2023-2 5 season) 2024 12/04/2020 Influenza Vaccine (#1) 2024 06/07/2014 Cholesterol Screening (Lipid Panel) 07/08/2029 07/08/2024 Hepatitis C Screening Completed 07/14/2024 HIB Vaccines Aged Out No longer eligi ble based on patient's age to complete this topic HPV Vaccines Aged Out No longer eligi ble based on patient's age to complete this topic IPV Vaccines Aged Out No longer eligi ble based on patient's age to complete this topic MMR Vaccines Aged Out No longer eligi ble based on patient's age to complete this topic Meningococcal ACWY Vaccine Aged Out N o longer eligible based on patient's age to complete this topic Meningococcal B Vacine Aged Out No lo nger eligible based on patient's age to complete this topic RSV Immunization Patients Un jalyn 20 months Aged Out No longer eligible b ased on patient's age to complete this topic Varicella Vaccines Aged Out No longer eligible based on patient's age to complete this topic Insurance MEDICARE MEDICAID - [place] Care Teams Car Dealer Relationship Specialty Start Date End Date Omega Hanan PA [address] [place] [address] PCP - General Physician Dredge Pipe Installer 07/26/24
--- OUTSIDE RECORDS SUMMARY | 2024-11-07 18:49 | XMS_ITS | Encounter Summary ---
Author Organization [employer] Address [address] [facility] 7 [place] [address] Care Team Providers Care Honing Machine Set Up Operator Tool Name Role Phone Jessa Russell MD Primary Care Provider Reason for Visit * Reason Onset Date Comments chart prep. 10/28/2024 Encounter Details Date Type Department Care Team ([facility] Contact Info) Description 10/28/2024 Telephone [facility] CHC MED & PEDS [address] [place] [address] Jessa Russell MD [address] [place], [place] [phone] chart prep. Social History Tobacco Use Types Packs/Day Years [...] PM EDT documented as of this encounter Miscellaneous Notes * Telephone Encounter - Andre Rocha [place] - 10/28/2024 3:01 PM EST Chart Prep Labs: done Images: done Vaccines due: yes Referrals: complete Screenings: colonoscopy Overdue care gaps: Sbirt, SDOH documented in this encounter Plan of Treatment Upcoming Encounters Date Type Department Care Team (Late st Contact Info) Description 02/07/2025 1:45 PM EDT Office Visit [facility] CHC MED & PEDS [address] [place] [address] Jessa Russell MD [address] [place] [address] documented as of this encounter Visit Diagnoses Not on filedocumented in this encounter Care Teams Honing Machine Set Up Operator Tool Relationship Specialty Start Date End Date Jessa Russell MD [address] [place] [address] PCP - General Internal Medicine 07/08/24 documented as of this encounter
--- OUTSIDE RECORDS SUMMARY | 2024-11-07 18:49 | XMS_ITS | Encounter Summary ---
Author Organization [employer] Address [address] [facility] 7 [place] [address] Care Team Providers Care Care Team Coordinator Scheduler Name Role Phone Jessa Russell MD Primary Care Provider Reason for Visit * Reason Onset Date Comments No Show 11/01/2024 Encounter Details Date Type Department Care Team ([facility] Contact Info) Description 11/01/2024 Telephone [facility] MED [facility] PEDS [address] [place] [address] Jessa Russell MD [address] [place], [place] [phone] No Show Social History Tobacco Use Types Packs/Day Years [...] encounter Miscellaneous Notes * Telephone Encounter - Trish Leiva - 11/01/2024 11:48 AM EST No Show 11/01/24 for pe documented in this encounter Plan of Treatment Upcoming Encounters Date Type Department Care Team (Late st Contact Info) Description 02/07/2025 1:45 PM EDT Office Visit [facility] MED & PEDS [address] [place] [address] Jessa Russell MD [address] [place] [address] documented as of this encounter Visit Diagnoses Not on filedocumented in this encounter Care Teams Care Team Coordinator Scheduler Relationship Specialty Start Date End Date Jessa Russell MD [address] [place] [address] PCP - General Internal Medicine 07/08/24 documented as of this encounter
--- OUTSIDE RECORDS SUMMARY | 2024-11-07 18:49 | XMS_ITS | Encounter Summary ---
Author Organization [employer] Address [address] [facility] 7t [place] [address] Care Team Providers Care Anesthesia Resident Name Role Phone Jessa Russell MD Primary Care Provider [phone] Reason for Visit * Reason Comments Med Refill Encounter Details Date Type Department Care Team ([facility] st Contact Info) Description 10/25/2024 Refill [facility] MED & PEDS [address] [place] [address] Jessa Russell MD [address] [place], [place] [phone] Chronic insomnia Social History Tobacco Use Types Packs/Day Years [...] Upcoming Encounters Date Type Department Care Team ([facility] st Contact Info) Description 02/07/2025 1:45 PM EDT Office Visit [facility] MED & PEDS [address] [place] [address] Jessa Russell MD [address] [place] [address] documented as of this encounter Visit Diagnoses Diagnosis Chronic insomnia Insomnia, unspecified documented in this encounter Care Teams Anesthesia Resident Relationship Specialty Start Date End Date Jessa Russell MD [address] [place] [address] PCP - General Internal Medicine 07/08/24 documented as of this encounter
--- OUTSIDE RECORDS SUMMARY | 2024-11-07 18:49 | XMS_ITS | Encounter Summary ---
Author Organization [employer] Address [address] [facility] 7 [place] [address] Care Team Providers Care Physical Chemistry Professor Name Role Phone Jessa Russell MD Primary Care Provider [phone] Reason for Visit * Reason Onset Date Comments chart prep 11/04/2024 Encounter Details Date Type Department Care Team ([facility] Contact Info) Description 11/04/2024 Telephone [facility] CHC MED & PEDS [address] [place] [address] Jessa Russell MD [address] [place], [place] [phone] chart prep Social History Tobacco Use Types Packs/Day Years [...] Telephone Encounter - Andre Rocha [place] - 11/04/2024 9:16 AM EST Chart Prep Labs: done Images: done Vaccines due: yes Referrals: complete Screenings: colonoscopy Overdue care gaps: Sbirt, SDOH, PHQ-9 documented in this encounter Plan of Treatment Upcoming Encounters Date Type Department Care Team ([facility] st Contact Info) Description 02/07/2025 1:45 PM EDT Office Visit [facility] MED & PEDS [address] [place] [address] Jessa Russell MD [address] [place] [address] documented as of this encounter Visit Diagnoses Not on filedocumented in this encounter Care Teams Physical Chemistry Professor Relationship Specialty Start Date End Date Jessa Russell MD [address] [place] [address] PCP - General Internal Medicine 07/08/24 documented as of this encounter
--- OUTSIDE RECORDS SUMMARY | 2024-11-07 18:49 | XMS_ITS | Encounter Summary ---
Author Organization [employer] Address [address] [facility] [address] [place] [address] Care Team Providers Care Dixonac Operator Name Role Phone Jessa Russell MD Primary Care Provider Encounter Details Date Type Department Care Team (Latest Contact Info) Description 11/07/2024 3:45 PM EST Office Visit [facility] CHC MED & PEDS [address] [place], [place] [phone] Jessa Russell MD [address] [place], [place] [phone] Acquired hypothyroidism (Primary Dx); Chronic insomnia; IFG (impaired fasting glucose); Blood glucose abnormal; Herpes labialis; Herpes labialis without complication Social History Tobacco Use Types Packs/Day Years [...] PM EDT documented as of this encounter Last Filed Vital Signs Vital Sign Reading [...] Mass Index 33.77 11/07/2024 3:39 PM EST documented in this encounter Progress Notes * Jessa Russell MD - 11/07/2024 3:45 PM EST Subjective Patient ID: Omega Schmid is a 49 y.o. male who presents for No chief complaint on file.. HPI 1) patient came to the office because he had lasagna 2 days ago and his blood sugar went up to 117.He is currently on metformin and he is compliant to the medication. Denies any polyuria/polydipsia or any other symptoms. 2) history of herpes labialis. Had a recent outbreak 2 days ago. Used to receive valacyclovir when he has an outbreak. No history of fever or other constitutional symptoms. Patient Active Problem List Diagnosis Acquired hypothyroidism Chronic insomnia Chronic hip pain Chronic pain in right shoulder Degenerative cervical spinal stenosis Idiopathic lumbar spinal stenosis Migraine headache Mixed hyperlipidemia Obstructive sleep apnea Post-traumatic brain syndrome Herpes labialis Herpes labialis without complication Current Outpatient Medications on File Prior to Visit Medication Sig Dispense Refill atorvastatin (Lipitor) 20 MG tablet Take 20 mg by mouth Once per day. fenofibrate (Tricor) 48 MG tablet Take 1 tablet (48 mg) by mouth Once per day. 30 tablet 11 levothyroxine (Synthroid, Levoxyl) 125 MCG tablet Take 125 mcg by mouth Once per day. levothyroxine (Synthroid, Levoxyl) 125 MCG tablet Take 125 mcg by mouth Once per day. metFORMIN (Glucophage) 500 MG tablet Take 500 mg by mouth 2 times daily. [DISCONTINUED] hydrOXYzine pamoate (Vistaril) 50 MG capsule TAKE 1 CAPSULE BY MOUTH AT BEDTIME NEEDED FOR ITCHING 30 capsule 0 No current facility-administered medications on file prior to visit. Allergies Allergen Reactions Penicillin G Anaphylaxis Oxycodone-Acetaminophen Tramadol Rash pt denies allergy Review of Systems Constitutional: Negative for activity change, appetite change and chills. Eyes: Negative for pain, redness and itching. Respiratory: Negative for cough, choking and shortness of breath. Cardiovascular: Negative for leg swelling. Musculoskeletal: Negative for back pain and gait problem. Skin: Skin lesions of the mouth Objective Physical Exam Constitutional: General: He is not in acute distress. Appearance: Normal appearance. He is not ill-appearing, toxic-appearing or diaphoretic. Cardiovascular: Rate and Rhythm: Normal rate. Pulmonary: Effort: Pulmonary effort is normal. Skin: Comments: Multiple grouped vesicles of the left upper lip on an erythematous base Neurological: Mental Status: He is alert. Assessment/Plan Diagnoses and all orders for this visit: Acquired hypothyroidism Comments: Continue with the current medication. Orders: - Hemoglobin A1c; Future Chronic insomnia Comments: Increase hydroxyzine to 100 mg once a day Call the office if no improvement in a week or so Appropriate sleep hygiene discussed Orders: - hydrOXYzine pamoate (Vistaril) 50 MG capsule; 50 to 100 mg at bedtime IFG (impaired fasting glucose) Comments: Low-carb diet. Regular exercises as tolerated. Orders: - POCT Glucose Blood glucose abnormal - Hemoglobin A1c; Future Herpes labialis - valACYclovir (Valtrex) 1 g tablet; Take 1 tablet (1,000 mg) by mouth 2 times daily for 7 days. Herpes labialis without complication - valACYclovir (Valtrex) 1 g tablet; Take 1 tablet (1,000 mg) by mouth 2 times daily for 7 days. documented in this encounter Plan of Treatment Upcoming Encounters Date Type Department Care Team (Late st Contact Info) Description 02/07/2025 1:45 PM EDT Office Visit [facility] MED & PEDS [address] [place] [address] Jessa Russell MD [address] [place] [address] Scheduled Orders Name Type Priority Associated Diagnoses Orde r Schedule Hemoglobin A1c Lab Routine Acquired hypothyroidism Blood glucose abnormal Expected: 11/07/2024 (Approximate), Expires: 11/07/2025 documented as of this encounter Procedures Procedure Name Priority Date/Time Associated Diagnosis Comments POCT GLUCOSE Routine 11/07/2024 4:06 PM EST IFG (impaired fasting glucose) documented in this encounter Results * POCT Glucose (11/07/2024 4:06 PM EST) [facility] Glucose Blood, POC 80 60 - 200 mg/dL QC Media Lot # [id number] Lot# Expiration Date , Blood Capillary blood specimen / Unknown 11/07/2024 4:06 PM EST Jessa Russell MD POINT OF CARE TEST ENTER/ED IT ORDERABLES Final Result documented in this encounter Visit Diagnoses Diagnosis Acquired hypothyroidism- Primary Unspecified hypothyroidism Chronic insomnia Insomnia, unspecified IFG (impaired fasting glucose) Blood glucose abnormal Other abnormal glucose Herpes labialis Herpes simplex without mention of complication Herpes labialis without complication documented in this encounter Additional Health Concerns Assessment Noted Time PHQ-9 Depression Total Score: 2 11/08/19 25 3:46 PM EST documented as of this encounter Care Teams Dixonac Operator Relationship Specialty Start Date End Date Jessa Russell MD [address] [place] [address] PCP - General Internal Medicine 07/08/24 documented as of this encounter
--- OUTSIDE RECORDS SUMMARY | 2024-11-07 18:49 | XMS_ITS | Encounter Summary ---
Author Organization [employer] Address [address] [facility] 7t [place] [address] Care Team Providers Care Cardiovascular Disease Specialist Name Role Phone Jessa Russell MD Primary Care Provider Reason for Visit * Reason Comments Pre-visit Planning SDOH screening negat elbert and Tobacco screening negative Encounter Details Date Type Department Care Team ([facility] st Contact Info) Description 10/18/2024 Patient Outreach [facility] MEDICINE [address] [place] [address] Jessa Russell MD [address] [place], [place] [phone] Pre-visit Planning (SDOH screening negative and Tobacco screening negative) Social History Tobacco Use Types Packs/Day Years [...] PM EDT documented as of this encounter Progress Notes * Xuan Putnam - 10/18/2024 11:51 AM EST CC Xuan Zavala placed successful outbound call to patient for pre-visit planning. Patient name and confirmed. Patient confirms appt date and time, and has transportation arrangements. Biggest concern for appointment at this time is patient would like a full lab work. Patient advised to bring to appointment a photo id and insurance card. Appropriate screenings completed in anticipation of appointment. documented in this encounter Plan of Treatment Upcoming Encounters Date Type Department Care Team (Late st Contact Info) Description 02/07/2025 1:45 PM EDT Office Visit [facility] MED & PEDS [address] [place] [address] Jessa Russell MD [address] [place] [address] documented as of this encounter Visit Diagnoses Not on filedocumented in this encounter Care Teams Cardiovascular Disease Specialist Relationship Specialty Start Date End Date Jessa Russell MD [address] [place] [address] PCP - General Internal Medicine 07/08/24 documented as of this encounter
--- OUTSIDE RECORDS SUMMARY | 2024-11-07 18:49 | XMS_ITS | Encounter Summary ---
Author Organization [employer] Address [address] [place] [address] [place] [address] Care Team Providers Care Tag Stringer Name Role Phone eJssa Russell MD Primary Care Provider Encounter Details Date Type Department Care Team (Late Contact Info) Description 07/20/[address] [facility] MED & PEDS [address] [place] [address] Jessa Russell MD [address] [place], [place] [phone] Chronic insomnia (Primary Dx) Social History Tobacco Use Types Packs/Day Years Used Date Smoking Tobacco: Former Cigarettes Comments:Has quit smoking fo r 25 years. Sex and Gender Information Value Date Recorded Sex Assigned at Male 07/04/2024 12:17 PM EDT Legal Sex Male 12:16 PM EDT Gender Identity Male 07/08/2024 2:27 PM EDT Sexual Orientation Straight 07/08/2024 2: 27 PM EDT documented as of this encounter Plan of Treatment Upcoming Encounters Date Type Department Care Team (Late st Contact Info) Description 02/07/2025 1:45 PM EDT Office Visit [facility] MED & PEDS [address] [place] [address] Jessa Russell MD [address] [place], [place] [phone] documented as of this encounter Visit Diagnoses Diagnosis Chronic insomnia- Primary Insomnia, unspecified documented in this encounter Care Teams Tag Stringer Relationship Specialty Start Date End Date Jessa Russell MD [address] [place], [place] [phone] PCP - General Internal Medicine 07/08/24 documented as of this encounter
[2024-11-08 07:26] LABS: Estimated Average Glucose 123 mg/dL; Hemoglobin A1C 165.8925 umol/L; Hemoglobin A1c % 5.9 % (<6.0); Total Hemoglobin (HGBA1C) 4005.6824 umol/L
== END 2024-11-07 16:14 | disposition home or self-care (01) ==
LOC: HO.CHCLDS 16:13
PROVIDERS: Visit Provider Internal Medicine
DX: E03.9 Hypothyroidism, unspecified (principal); R73.09 Other abnormal glucose
CPT/HCPCS: 36415; 83036

== ENCOUNTER 2024-12-05 15:35 | Outpatient (REF) | payer MEDICARE, MEDICAID, SELFPAY ==
--- NOTE | ~2024-12-05 | XR_ITS ---
CLINICAL HISTORY: Cough x > 1 month. 2 view chest x-ray Comparison: None Findings: No consolidation or effusion. Normal size heart. No acute fracture. IMPRESSION: 1. No acute findings. This document has been electronically signed by: Saul Pimentel MD on 12/06/2024 14:43:03
--- OUTSIDE RECORDS SUMMARY | 2024-12-05 17:31 | XMS_ITS | Data Portability ---
Author Organization [place] - [facility], , [facility] Address [address] [place] [address] Care Team Providers Care Teletype Adjuster Name Role Phone DARLINE MORROW OTHER [phone] LARA LYNNE Primary Care Provider Assessment No assessment recorded. Plan of Treatment Reminders Order Date Submit Date Provider Last Modified By Organization Details Last Modified Time Details Appointments None recorded. Lab rapid strep group A, throat [address], [address] [place] [address], [address], 5 14:10:45 Referral neurologis t referral - Daily headaches x years; a few migraines; was tried on topamax which broke migraines but side effects were intolerabl e. please help with daily headache thx. 2016 017 ALEXEY [facility], [address] [facility], [place], [address], 8 05:00:53 gastroente rologist referral - needs monitoring and advice for IBS; having stomach pain with any intake; thinks he needs UGI. 2016 017 ALEXEY Leary MD, [address] [facility], [facility] [address], [place], [address], 8 05:00:21 physical therapist referral - R shoulder pain, tenderness on palpation of R AC joint, pain at 90 degrees flexion R arm, increased pain with adduction and abduction but full ROM, sign. decrease in ROM with internal rotation R 2015 016 [facility], [address] [place] [address], [address], 6 08:06:49 Procedures None recorded. Surgeries None recorded. Imaging x-ray, shoulder, 2 views 2015 016 [facility] (Imaging), [address] , [place], [address], 6 07:43:43 Medication Orders Imitrex 50 mg tablet 2016 017 [facility], [address] [place], [address], 7 15:31:03 Pepcid 20 mg tablet 2016 017 [facility], [address] [place], [address], 7 14:46:22 Topamax 25 mg tablet 2016 017 [facility], [address] [place], [address], 7 15:25:50 piroxicam 20 mg capsule [address] [id number], [address] [place], [place], [id number], 7 14:11:01 Patient TargetsNo targets recorded. Patient Instructions Encounter Date Encounter Id Patient Instructions Last Modified By Organization Details Last Modified Time 08/06/2015 [id number] upper respirator y infection (cold): care instructions [email or web address] Not available 08/06/2015 15:06:23 09/28/2015 [id number] agree mgump Not available 09/28 17:33:38 Reason [...] he needs UGI. Referring Physician: Lyndsey Queen, [facility], Encounter Date: 07/07/2017 Neurologist Referral for Shirlene ly headache Daily headaches x years; a few migraines; was tried on topamax which broke migraines but side effects were intolerable. please help with daily headache thx. Referring Physician: Lyndsey Queen [facility], Encounter Date: 07/21/2017 Results Created Date Observation Date Name Description Value Unit Range Abnormal Flag Note LastModifiedBy Organization Detail LastModifiedTime 08/06/20 15 08/06/2015 rapid strep group A, throa t Strep negati ve Not Available [address], [address], 08/06/2015 13:48:42 09/28/19 16 09/28/2015 x-ray , [...] icant radiog raphic abnorm alitie s. CODE: 70532 POS: VMG Electr onical ly signed José Miguel mattson Physic fany: Mauro Carver [email or web address] [facility] (Imaging) [address], [place], [address], 10/04/2015 14:22:35 Result Notes None recorded. 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 [facility] [place], [address], [facility] 6 13:35:28 Breathing painful 38350557 Completed 200607/27/2013 ZOYA Martinez [place], [place], [address], [facility] 6 13:35:28 Finding by method 355873510 Completed 200612/16/2011 Gretchen Maria NP [address], [place], [address], [facility] 6 13:35:28 Impotence of organic origin Active ZOYA Martinez [place], [place], [address], [facility] 6 13:35:28 Abdominal pain 66753406 Completed 200512/16/2011 Gretchen Maria NP [address], [place], [address], [facility] 6 13:35:28 Contact dermatitis 02576461 Completed 200512/16/2011 Gretchen Maria NP [address], [place], [address], [facility] 6 13:35:28 Cough 43250641 Completed 07/27/2013 Gretchen Maria NP [address], [place], [address], [facility] 6 13:35:28 Cough 10989467 Completed 200612/16/2011 Gretchen Maria NP [address], [place], [address], [facility] 6 13:35:28 Periapical abscess without sinus tract Completed 200512/16/2011 ZOYA Martinez [place], [place], [address], [facility] 6 13:35:28 Pertussis 64406403 Completed 05/24/2015 [place], [address], [facility] 6 13:35:28 Herpes simplex 81359033 Active Gretchen Maria NP [address] [place], [place], [address], [facility] 6 13:35:28 Diarrhea 05160890 Completed 200512/16/2011 [place], [address], [facility] 6 13:35:28 Abnormal weight gain 952465564 Completed 200512/16/2011 Gretchen Maria NP [address], [place], [address], [facility] 6 13:35:28 Low back pain 218144595 Completed 01/09/2015 [place], [address], [facility] 6 13:35:28 Problem Notes None recorded. Procedures Surgical History Date Name Laterality Status Provider Name and Address Organization Details Recorded Time 09/07/19 14 Back Surgery completed Ryan Webster MD [address] [place] [address], [address], [facility] 01/09/2015 16:01:35 09/15/19 13 Nebulizer Tx completed Yaquelin Mojica MA [facility] 09/15/2012 14:30:26 09/07/19 13 Other (specify) completed Ryan Webster MD [address] [place] [address], [address], [facility] 01/09/2015 16:07:39 09/07/19 07 Other (specify) completed Ryan Webster MD [address] [place] [address], [address], [facility] 01/09/2015 16:05:59 Appendectomy completed Ryan Webster MD [address] [place] [address], [address], [facility] 01/09/2015 16:05:59 Imaging Results Imaging Date Name Status LastModified by [facility] Details LastModified Time 09/28/2015 x-ray, shoulder, [email or web address] [facility] (Im[facility]) [address], [place], [address], 10/04/2015 14:22:35 Procedure Notes None recorded. Medical Equipment None Reported. Allergies Allergen ID Allergen Name Allergen Category Reaction Reaction Severity Criticality Documentation Date Start Date Code Code System Note Provider Name and Address Organization Details Recorded Time Topamax medicatio n dizziness Not available Not available 07/21/2017 93653 3 RxNorm feels like he is out of it. Xiao Menjivar LPN null, [facility] 7 15:03:53 69535 tramadol medicatio n Not available Not available Not available 12/21/2009 98209 RxNorm Eunice RADHA R[facility], [facility] 2 12:01:42 36976 Product containin g penicilli n (product) medicatio n anaphylax is Not available Not available 12/21/2009 14466 8001 SNOMED Not Available [facility] 1 06:05:41 Medications Name Sig Start [...] Updated DateTime 7 175.26 cm 31.9 kg/m2 65121.9 5 g 78 /min 102 mm[Hg] 60 mm[Hg] Xiao Menjivar LPN [facility] 7 15:25:26 Date Recorded Body height Body mass index (BMI) Body weight Heart rate Systolic blood pressure Diastolic blood pressure Provider Name and Address Organization Details Last Updated DateTime 7 175.26 cm 32 kg/m2 14443.5 4 g 90 /min 106 mm[Hg] 64 mm[Hg] Xiao Menjivar [facility] 7 14:16:30 Date Recorded Body height Body mass index (BMI) Body weight Heart rate Systolic blood pressure Diastolic blood pressure Provider Name and Address Organization Details Last Updated DateTime 7 175.26 cm 32 kg/m2 09877.5 4 g 90 /min 110 mm[Hg] 66 mm[Hg] Xiao Menjivar [facility] 7 15:06:14 Date Recorded Body height Body mass index (BMI) Body weight Body temperature Heart rate Systolic blood pressure Diastolic blood pressure Provider Name and Address Organization Details Last Updated DateTime 5 175.26 cm 33 kg/m2 206621. 735361 g 98.7 [degF] 84 /min 120 mm[Hg] 80 mm[Hg] Chantale Vega [facility] 5 13:34:15 Date Recorded Body height Provider Name an d Address Organization Details Last Updated DateTime 09/28/2015 175.26 cm Kimmie Velasquez [facility] 09/28/2015 13:22:24 Date Recorded Body mass index (BMI) Body weight Heart rate Systolic blood pressure Diastolic blood pressure Provider Name and Address Organization Details Last Updated DateTime 09/28/2015 33.8 kg/m2 259112.6 5273 g 88 /min 118 mm[Hg] 80 mm[Hg] Arin Green [facility] 6 13:34:51 Social History Question Answer Notes LastModified by Organizat ion Details LastModified Time Tobacco Smoking Status Former Smoker Quit 1999 [place] Collier [facility] 11/14/2011 13:11:54 What Is Your Level [...] 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 6-10yearssinc [email or web address] e Information not available 01/09/2015 How Many Days In The Past Year Have You Had A Heavy Drinking Consumption (4+ Female, 5+ Male)? 0 08/06/15 [email or web address] Information not available 08/06/2015 Are There Any Guns Present In Your Home? No [email or web address] Information not available 07/24/2011 Live Alone Or With Others? With Others Friend - Ivis (platonic) Information not available 12/21/2009 CSRP - Narcotics No [email or web address] Information not available 05/27/2012 CSRP Contract Signed [...] Mel (1999) - Lives With Mom In [place] - Estranged Information not available 12/21/2009 Seat [...] Maternal Grandfather Malignant tumor of pancreas 83 [email or web address] Not available 2015 13:51:42 Mother Primary malignant neoplasm of intrahepatic bile duct [email or web address] Not available 2015 13:51:42 Father Epilepsy [email or web address] Not available 09/28/2015 13:51:42 Brother Well adult [email or web address] Not availa ble 09/28/2015 13:51:42 Sister Medical history unknown 1/2 sister Not available 09/28/2015 13:51:42 Daughter Well adolescent Not available 09/28 13:51:42 Medical History Condition [...] SNOMED-CT Code Diagnosis ICD10 Code Diagnosis Note [id number] [facility], OFFICE [address] [place] [address] 06/24/2006 09:44:26 06/25/2006 09:09:10 [id number] [facility] [address] [place] [address] 06/24/2006 10:51:30 06/24/2006 10:51:47 [id number] [facility], OFFICE [address] [place] [address] 06/25/2006 13:27:08 06/25/2006 16:23:01 [id number] [facility], OFFICE [address] [place] [address] 07/07/2006 16:39:17 09/27/2008 02:02:29 [id number] [facility], OFFICE [address] [place] [address] 07/15/2006 14:20:03 07/16/2006 11:10:40 [id number] Radiology , [address] [address] 10/19/2006 17:23:27 10/20/2006 07:28:54 [id number] Radiology , [address] [address] 10/19/2006 00:00:00 09/27/2008 02:02:29 [id number] , [facility], OFFICE [address] [place] [address] 10/19/2006 16:30:48 10/20/2006 07:48:12 [id number] , [facility], OFFICE [address] [place], [place] [address] 12/21/2009 12:57:44 12/24/2009 08:41:31 [id number] , [facility], OFFICE [address] [facility] [place], [place] [address] 06/13/2010 12:36:30 06/14/2010 08:32:15 [id number] , [facility], OFFICE [address] [facility] [place], [place] [address] 07/10/2011 08:51:50 07/10/2011 10:07:25 [id number] , [facility], OFF[address], [place] [address] 07/23/2011 13:24:31 07/24/2011 08:34:13 [id number] , [facility], OFF[address] [place], [place] [address] 09/03/2011 16:05:37 09/04/2011 08:21:46 [id number] [facility], OFFICE [address] [place] [address] 11/14/2011 12:42:00 11/14/2011 14:17:22 [id number] [facility], OFFICE [address] [place] [address] 12/16/2011 13:51:43 12/18/2011 11:50:06 [id number] [facility], OFFICE [address] [place] [address] 01/07/2012 15:31:27 01/07/2012 16:08:32 [id number] [facility], OFFICE [address] [place] [address] 01/08/2012 11:41:18 01/08/2012 12:44:44 [id number] , [facility], OFFICE [address] [place] [address] 02/06/2012 11:01:13 02/09/2012 07:04:04 [id number] , [facility], OFFICE [address] [place] [address] [place] [address] 03/19/2012 15:18:09 03/19/2012 17:15:36 [id number] , [facility], OFFICE [address] [place] [address] [place] [address] 03/24/2012 15:50:25 03/24/2012 16:46:32 [id number] , [facility], OFFICE [address] [facility] [address] 04/09/2012 11:09:06 04/09/2012 11:57:13 [id number] , [facility], OFFICE [address] [place] [address] [place] [address] 05/07/2012 16:41:19 05/07/2012 17:14:48 [id number] CARI Langley , [facility], OFFICE [address] [place] [address] 08/25/2012 10:54:56 08/25/2012 12:23:10 [id number] CARI Langley , [facility], OFFICE [address] [place] [address] [place] [address] 09/15/2012 14:07:54 09/15/2012 14:47:52 [id number] [facility], OFFICE [address] [place] [address] 09/21/2012 14:07:10 09/21/2012 15:18:43 [id number] Wendy Velasquez , [facility], OFFICE [address] [facility] [address] 11/24/2012 10:44:33 11/24/2012 12:49:13 [id number] , [facility], OFFICE [address] [place] [address] 01/09/2015 15:21:38 01/09/2015 16:22:52 Irritable bowel syndrome 74127207 Omega's symptoms are diagnostic of IBS, assuming other etiologies for his pain and altered bowel function have been excluded by prior evaluation . [facility]. We can discuss whether [...] unexplaine d weight loss, or nocturnal stooling. [id number] [place] Francois, [facility], OFFICE [address] [facility] [place] [address] 03/19/2015 13:38:06 03/19/2015 16:06:14 Cellulitis of foot 060893173 he reports significan t increased pain in [...] it's not better next week Allergic conjunctivitis 257552248 otc drops/ if not better, can use erythro drops [id number] Leo Sweeney MA , [facility], OFFICE [address] [facility] [place] [address] 03/22/2015 14:38:20 03/22/2015 15:00:27 Irritable bowel syndrome 96111187 May well be IBS but pt is [...] up for recheck / possible GI referral. [id number] Ryan Webster MD , [facility], OFFICE [address] [facility] [place] [address] 05/24/2015 11:31:56 05/25/2015 08:52:59 Abdominal pain 40614745 Omega comes with a very vague history [...] his limitation s and level of concerns. [id number] Kala Vasquez , [facility], OFFICE [address] [facility] [place] [address] 06/07/2015 17:03:57 06/08/2015 11:00:03 Acute upper respiratory infection 18426450 J06.9 URI is a viral illness of the upper airways. It is not bacterial and does not benefit from antibiotic s. Average duration of URI is 7-10 days. Recommende d symptomati c treatments including NSAIDS or APAP. Local honey is an effective anti-tussi ve (best studies on buckwheat honey). Chicken soup, salt water gargles also effective. Herpes simplex 17370761 B00.1 [id number] , [facility], OFFICE [address] [facility] [place] [address] 08/06/2015 13:20:45 08/07/2015 08:02:19 Upper respiratory infection 35338226 J06.9 he's been ill for several days with significan t pharyngiti s but no exudate and not strep.//Co ntinue symptomati c and expect improvemen t over the next 3 or 4 days [id number] Letha Villasenor MD , [facility], OFFICE [address] [facility] [place] [address] 09/28/2015 13:16:30 09/28/2015 13:51:27 Shoulder pain 15275164 M25.511 DDX; musculoske letal, rotator cuff, labrum [...] Xray findings do not warrant orthopedic referral. 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 keep headache diary, follow up in 2 weeks. [id number] Lyndsey Queen MD , [facility], [address] [place] [address] 07/07/2017 13:44:54 07/07/2017 14:54:23 Migraine 91961457 G43.909 started topamax and is much better. increase to 50 mg BID, then stay there. follow up 2 weeks; expect side effects from topamax to julius in 2-4 weeks. Irritable bowel syndrome 09834892 K58.9 needs new GI [id number] Lyndsey Queen MD , [facility], [address] [place] [address] 07/21/2017 14:47:16 07/21/2017 15:36:56 Daily headache 3511942298 03 R51 try migraine abortive therapies, follow [...] ID Guarantor Name 08/06/2015 1 [place] [employer] [id number] [employer] 08/06/2015 2 [place] [employer] E [employer]u [id number] [employer] 09/28/2015 1 [place] [employer] [id number] [employer] 09/28/2015 2 [place] [employer] [id number] [employer] 06/22/2017 1 [place] [employer] [id number] [employer] 06/22/2017 2 [place] [employer] E [employer] [id number] [employer] 07/07/2017 1 [place] [employer] [id number] [employer] 07/07/2017 2 [place] [employer] [id number] [employer] 07/21/2017 1 [place] [employer] E [employer] [id number] [employer] 07/21/2017 2 [place] [employer] [id number] [employer] Notes Date Note Type [...] or back pain. Letha Villasenor MD [address] [place], [address], [facility] 09/28/2015 17:33:39 06/22/2017 text/html migraines starte d 2-3 years ago; nausea with headaches; has had daily headaches for 2-3 years; at least every other day. wakes with headaches, it sometimes goes away and then will come back in the evening. moves all over head; worst ones always right above christian. pounding aching quality Lyndsey Queen MD [address] [place], [address], [facility] 06/22/2017 16:26:07 07/07/2017 text/html migraines starte d 2-3 years ago; nausea with headaches; has had daily headaches for 2-3 years; at least every other day. wakes with headaches, it sometimes goes away and then will come back in the evening. moves all over head; worst ones always right above christian. pounding aching quality now on 25 mg in the morning and 50 mg at night; headaches are improving; noticing dizziness and visual disturbances; friend reassured him it will take 4 weeks. Lyndsey Queen MD [address] [place], [address], [facility] 07/07/2017 14:51:01 07/21/2017 text/html migraines starte d 2-3 years ago; nausea with headaches; has had daily headaches for 2-3 years; at least every other day. wakes with headaches, it sometimes goes away and then will come back in the evening. moves all over head; worst ones always right above christian. pounding aching quality topamax causing unacceptable side effects Lyndsey Queen MD [address] [place] [address], [address], [facility] 07/22/2017 10:47:36
--- OUTSIDE RECORDS SUMMARY | 2024-12-05 17:31 | XMS_ITS | Clinical Summary ---
Author Organization [facility] Address [address] [place] [address] Phone Care Team Providers Care Benefits Consultant Name Role Phone Omega Hanna Primary Care Provider [phone] Allergies Active Allergy Reactions Criticality Noted Date Comments Penicillins Anaphylaxis High 11/16/2024 Medications albuterol HFA (PROAIR HFA ; PROVENTIL HFA ; VENTOLIN HFA) 90 mcg/actuation inhaler Inhale 2 puffs by mouth every 4 (four) hours if needed for shortness of breath or wheezing. 1 each 5 12/17/19 25 Active predniSONE (DELTASONE) 50 mg tablet Take 1 tablet (50 mg total) by mouth 1 (one) time each day for 5 days. 5 each 5 11/22/19 25 Encounters Date Type Department Care Team Description 11/16/2024 6:48 PM EDT - 11/16/2024 8:21 PM EDT Emergency [facility] Emergency [address] [place] [address] Acute bronchitis, unspecified organism (Primary Dx) Discharge Disposition: Home or Self Care from Last 3 Months Surgical History Surgery Date Site/Laterality Comments NECK SURGERY 2007 PROCEDURE: HISTORICAL NECK SURGERY; COMMENT: Cervical Spine -Anterior Cervical Decompression and Fusion (3 levels) Dr Bhakta BACK SURGERY 2014 PROCEDURE: HISTORICAL BACK SURGERY; COMMENT: L5-S1 anterir fusion cages in [facility]- Dr Bhakta APPENDECTOMY PROCEDURE: HISTORICAL APPENDECTOMY OTHER SURGICAL HISTORY 2013 Right PROCEDURE: ID INCISION BONE CORTEX PELVIS&/HIP JOINT; COMMENT: Hip [...] of femur (CMS/HCC) 02/03/2018 DX:AVN of femur (FORM[facility]); COMMENT: Sees Dr Soares Diverticulitis 02/03/2018 DX:Diverticuliti s Alcohol dependence in remiss ion (CMS/HCC) 02/25/2018 DX:Alcohol dependence in rem ission (FORMERLY [facility]) Fatty liver 03/03/2018 DX:Fatty liver Cognitive deficits [...] Sexual Orientation Not on file Obstetrics History Last Filed Vital Signs Vital Sign Reading Time Taken Comments Blood Pressure 132/86 11/16/2024 5:26 PM EDT Pulse 78 11/16/2024 5:26 PM EDT Temperature 36.9 ??C (98.4 ??F) 11/16/2024 5:26 PM ED T Respiratory Rate 18 11/16/2024 5:26 PM EDT Oxygen Saturation 95% 11/16/2024 5:26 PM EDT Inhaled Oxygen Concentration - - Weight 99.8 kg (220 lb) 11/16/2024 5:26 PM EDT Height 172.7 cm (5' 8 ) 11/16/2024 5:26 PM EDT Body Mass Index 33.45 11/16/2024 5:26 PM EDT Plan of Treatment Health Maintenance Due Date Last Done Comments Hepatitis A Vaccines (1 of 2 - Risk 2-dose series) 1994 Hepatitis B Vaccines (1 of 3 - 19+ 3-dose series) 1994 Pneumococcal Vaccine: Pediat rics (0 to 5 Years) and At-Risk Patients (6 to 64 Years) (2 of 2 - PCV) 06/07/2015 06/07/2014 Colorectal Cancer Screening: Colonoscopy 08/10/2022 HIV Screening 08/10/2022 Medicare Annual Wellness Visit 08/10/2022 Social Influencers of Health Screening 08/10/2022 DTaP,Tdap,and Td Vaccines (2 - Td or Tdap) 11/24/2022 11/24/2012 COVID-19 Vaccine (2 - 2023-2 5 season) 2024 12/04/2020 Influenza Vaccine (#1) 2024 06/07/2014 Depression Screening 11/07/2025 11/07/2024 Cholesterol Screening (Lipid Panel) 07/08/2029 07/08/2024 Hepatitis [...] Procedure Name Priority Date/Time Associated Diagnosis Comments XR CHEST 2 VIEWS STAT 11/16/2024 5:37 PM EDT CULTURE THROAT STAT 11/16/2024 5:29 PM EDT RAPID STREP A SCREEN STAT 11/16/2024 5:29 PM EDT [id number], RSV, FLU A AND B QUALITATIVE RT-PCR, INTERNAL LAB STAT 11/16/2024 5:29 PM EDT from Last 3 Months Results * XR Chest 2 Views (11/16/2024 5:37 PM EDT) Anatomical Region Laterality Modality Body Radiographic Birgit ging 11/16/2024 10:0 3 PM EDT Impressions 11/16/2024 10:04 PM EDT The lungs are clear bilaterally. ??The mediastinum appears within normal limits. -------- FINAL REPORT -------- Dictated By: Jai Putnam Dictated Date: 11/16/2024 22:03 ET Assigned Physician: Jai Putnam Reviewed and Electronically Signed By: Jai Putnam Signed Date: 11/16/2024 22:04 ET Workstation ID: [id number] Transcribed By: Self Edit Transcribed Date: 11/16/2024 22:03 ET Narrative 11/16/2024 10:04 PM EDT Frontal and lateral view of the chest COMPARISON: Chest radiograph February 17 INDICATION: Cough Procedure Note Jai Putnam MD - 11/16/2024 Frontal and lateral view of the chest COMPARISON: Chest radiograph February 17 INDICATION: Cough IMPRESSION: The lungs are clear bilaterally. The mediastinum appears within normallimits. -------- FINAL REPORT -------- Dictated By: Jai Putnam Dictated Date: 11/16/2024 22:03 ET Assigned Physician: Jai Putnam Reviewed and Electronically Signed By: Jai Putnam Signed Date: 11/16/2024 22:04 ET Workstation ID: [id number] Transcribed By: Self Edit Transcribed Date: 11/16/2024 22:03 ET Oscar Guzman DO IMG XR PROCEDURES Final Result * EPEG-QXD2-AIM, RSV, Influenza A and B qualitative RT-PCR (11/16/2024 5:29 PM EDT) Influenza A PCR Not Detected Not Detected LAB MICROBIOLOGY METHOD 11/16/2024 6:59 PM EDT [facility] Influenza B PCR Not Detected Not Detected LAB MICROBIOLOGY METHOD 11/16/2024 6:59 PM EDT [facility] RSV PCR Not Detected Not Detected LAB MICROBIOLOGY METHOD 11/16/2024 6:59 PM EDT [facility] SARS COV-2 Not Detected Not Detected LAB MICROBIOLOGY METHOD 11/16/2024 6:59 PM EDT [facility] Swab Structure of right anterior naris / Unknown Non-blood Collection / Unknown 11/16/2024 5:29 PM EDT 11/16/2024 6:07 PM EDT Narrative [facility] - 11/16/2024 6:59 PM EDT Disclaimer: ??Testing was performed using the [employer] GeneXpert Xpress SARS-CoV-2 _Flu_RSV PLUS PCR assay. ??The manner in which this information is used to guide patient care is the responsibility of the healthcare provider. ??Results should be correlated with the clinical history, epidemiological data, and other data available to the clinician evaluating the patient. ??Negative results do not preclude infection. ??This test has been authorized by the FDA under an Emergency Use Authorization (EUA). ??This test is only authorized for the duration of time the declaration that circumstances exist justifying the authorization of the emergency use of in vitro diagnostic tests for detection of SARS-CoV-2 virus and/or diagnosis of COVID-19 infection under section 564 (b) (1) of the Act, 21 U.S.C 360bbb-3 (b) (1), unless the authorization is terminated or revoked sooner. ?? Reference Range: Not Detected Fact sheet for Healthcare providers can be found at https://www.fda.gov/media/501710/download. ?? Fact sheet for Healthcare patients can be found at https://www.fda.gov/media/669624/download. us Oscar Guzman DO LAB MICROBIOLOGY - GENERAL ORD ERABLES Final Result Performing Organization Address [facility] Co de Phone Number [facility] [address] [place] [address], [place] [phone] * Rapid strep A screen (11/16/2024 5:29 PM EDT) Strep A Ag Negative Negative, Invalid 11/16/2024 6:29 PM EDT [facility] Comment:Refer to Throat Cult ure. Swab Structure of anterior portion of neck / Unknown Non-blood Collection / Unknown 11/16/2024 5:29 PM EDT 11/16/2024 6:06 PM EDT us Oscar Guzman DO LAB MICROBIOLOGY - GENERAL ORD ERABLES Final Result Performing Organization Address [facility] de Phone Number [facility] [address] [place] [address], [place] [phone] * Culture throat (11/16/2024 5:29 PM EDT) Culture, Throat No pathogens isolated. 11/18/2024 11:04 AM EDT [facility] Swab Structure of anterior portion of neck / Unknown Non-blood Collection / Unknown 11/16/2024 5:29 PM EDT 11/16/2024 6:06 PM EDT us Oscar Guzman DO LAB MICROBIOLOGY - GENERAL ORD ERABLES Final Result Performing Organization Address [facility] Co de Phone Number [facility] [address] [place] [address], [place] [phone] from Last 3 Months Insurance MEDICARE MEDICAID - [place] Care Teams Benefits Consultant Relationship Specialty Start Date End Date Omega Hanna PA [address] [place] [address] PCP - General Physician Shelf Drier Operator 07/26/24
--- OUTSIDE RECORDS SUMMARY | 2024-12-05 17:31 | XMS_ITS | Encounter Summary ---
Author Organization [employer] Address [address] [place] [address] [place] [address] Care Team Providers Care Housekeeping Cleaner Name Role Phone Jessa Russell MD Primary Care Provider [phone] Encounter Details Date Type Department Care Team (Late st Contact Info) Description 07/20/2024 Orders Only [facility] [address] [place] [address] Jessa Russell MD [address], [place] [phone] Chronic insomnia (Primary Dx) Social History Tobacco [...] Care Team (Late st Contact Info) Description 01/06/2025 3:15 PM EDT Office Visit [facility] [address] [place] [address] Jessa Russell MD [address] [place] [address] 02/07/2025 1:45 PM EDT Office Visit [facility] [address] [place] [address] Jessa Russell MD [address], [place] [phone] documented as of this encounter Visit Diagnoses Diagnosis Chronic insomnia- Primary Insomnia, unspecified documented in this encounter Care Teams Housekeeping Cleaner Relationship Specialty Start Date End Date Jessa Russell MD [address] [place] [phone] PCP - General Internal Medicine 07/08/24 documented as of this encounter
--- OUTSIDE RECORDS SUMMARY | 2024-12-05 17:31 | XMS_ITS | Encounter Summary ---
Author Organization [employer] Address [address] [facility] [address] [place] [address] Care Team Providers Care National Sales Consultant Name Role Phone Jessa Russell MD Primary Care Provider Reason for Visit * Reason Onset Date Comments Nurse Triage 12/05/2024 Encounter Details Date Type Department Care Team ([facility] st Contact Info) Description 12/05/[address] [facility] [address], [place] [phone] Jessa Russell MD [address] [place], [place] [phone] Nurse Triage Social History Tobacco Use Types Packs/Day Years Used Date Smoking Tobacco: Former Cigarettes Smokeless Tobacco: Never Comments:Has quit smoking fo r 25 years. [...] the past 12 months, has t he [employer], gas, oil or water [employer] threatened to shut off services in your [...] encounter Miscellaneous Notes * Telephone Encounter - Torrie Arriaga RN - 12/05/2024 12:58 PM EDT Triage call Pt was seen 11/25/24 and dx with acute bronchitis, zithromax was prescribed, pt was given duoneb and mucinex with warm tea recommended. Pt reports compliant with these recommendations. Pt reports going outside and coming back home with wheezing, cough and sx are starting all over again . Pt denies having allergies. Pt is drinking adequate liquids. ASK apt in [facility] today at 240pm. [place] with disposition and insurance is verified as active prior to booking. Protocol Used: Cough (Adult) Protocol-Based Disposition: See in Office or Video Visit Today or Tomorrow Video visit not offered Positive Triage Question: * Patient wants to be seen * All higher-acuity triage questions were negative Care Advice Discussed: * Reassurance and Education - Cough * Prevent Dehydration * Reasons To Call Back - Difficulty breathing - Cough lasts more than 3 weeks - Fever lasts more than 3 days - You become worse * Telephone Encounter - Rivera Lyle - 12/05/2024 12:45 PM EDT Symptom: Wheezing Outcome: Schedule a same-day appointment or talk to a nurse or provider today Reason: Caller denied all higher acuity questions The caller accepted this outcome. Pt had bronchitis as of 2 weeks ago . Pt was prescribed antibiotics and now has symptoms again . documented in this encounter Plan of Treatment Upcoming Encounters Date Type Department Care Team (Late st Contact Info) Description 01/06/2025 3:15 PM EDT Office Visit [facility] [address] [place] [address] Jessa Russell MD [address] [place] [address] 02/07/2025 1:45 PM EDT Office Visit [facility] [address] [place] [address] Jessa Russell MD [address] [place] [address] documented as of this encounter Visit Diagnoses Not on filedocumented in this encounter Additional Health Concerns Assessment Noted Time PHQ-9 Depression Total Score: 2 11/08/19 25 3:46 PM EST documented as of this encounter Care Teams National Sales Consultant Relationship Specialty Start Date End Date Jessa Russell MD [address] [place] [address] PCP - General Internal Medicine 07/08/24 documented as of this encounter
--- OUTSIDE RECORDS SUMMARY | 2024-12-05 17:31 | XMS_ITS | Clinical Summary ---
Author Organization [employer] Address [address] [facility] 7[address] [place] [address] Care Team Providers Care Student Admissions Clerk Name Role Phone Jessa Russell MD Primary Care Provider [phone] Allergies Active Allergy Reactions Criticality Noted Date [...] 05/30/20 24 Active fenofibrate (Tricor) 48 MG tabletIndicatio ns:Hypertriglyc eridemia Take 1 tablet (48 mg) by mouth Once per day. 30 tablet 11 07/14/20 24 025 Active hydrOXYzine pamoate (Vistaril) 50 MG capsuleIndicati ons:Chronic insomnia 50 to 100 mg at bedtime 60 capsule 3 11/08/19 25 Active Dextromethorpha n-guaiFENesin (Mucinex DM) 30-600 MG tablet sustained-relea se 12 hour Use 1 tab TID 28 tablet 11/26/19 25 Active azithromycin (Zithromax Z-Harpreet) 250 MG tablet Take 2 tabs day 1 and then 1 tab daily to finish 6 tablet 11/26/19 25 Active fluticasone-olivier meterol (Advair HFA) 115-21 MCG/ACT inhalerIndicati ons:Wheezing Inhale 2 puffs in the morning and at bedtime. Rinse mouth with water after use to reduce aftertaste and incidence of candidiasis. Do not swallow. 12 g 11 12/06/19 25 026 Active predniSONE (Deltasone) 10 MG tablet 3 tabs once a day x 3 days, 2 tabs once a day x 3 days, 1 tab a day x 3 days. 18 tablet 12/06/19 25 Active hydrOXYzine pamoate (Vistaril) 50 MG capsuleIndicati ons:Chronic insomnia TAKE 1 CAPSULE BY MOUTH AT BEDTIME NEEDED FOR ITCHING 30 capsule 10/25/19 25 025 Discontinued(R eorder (will not trigger notification to Pharmacy)) valACYclovir (Valtrex) 1 g tabletIndicatio ns:Herpes labialis,Herpes labialis without complication Take 1 tablet (1,000 mg) by mouth 2 times daily for 7 days. 14 tablet 11/08/19 25 025 guaiFENesin (Robitussin) 100 MG/5ML liquid Take 10 mL (200 mg) by mouth if needed in the morning, at noon, and at bedtime for cough for up to 10 days. 120 mL 11/15/19 25 025 Discontinued doxycycline (Vibra-Tabs) 100 MG tablet Take 1 tablet (100 mg) by mouth 2 times daily for 5 days. Take with a full glass of water and do not lie down for at least 30 minutes after. 10 tablet 11/15/19 25 025 Discontinued Hospital, Clinic, or Other Facility Administered Medication Ordered Dose Route Frequency Start Date End Date Status ipratropium-albutero l (Duo-Neb) 0.5-2.5 mg/3 mL nebulizer solution 3 mgIndications:Acute bronchitis, unspecified organism 3 mg NEBULIZATION Once 11/25/2024 11/25/2024 En ded Active Problems Problem Noted Date Diagnosed Date Herpes labialis 11/07/2024 Herpes labialis without complication 11/07/2024 Acquired hypothyroidism 07/08/2024 Chronic insomnia 07/08/2024 Chronic hip pain 07/08/2024 Chronic pain in right shoulder 07/08/2024 Degenerative cervical spinal stenosis 07/08/2024 Idiopathic lumbar spinal stenosis 07/08/2024 Migraine headache 07/08/2024 Mixed hyperlipidemia 07/08/2024 Obstructive sleep apnea 07/08/2024 Post-traumatic brain syndrome 07/08/2024 Encounters Date Type Department Care Team Description 12/05/2024 2:40 PM EDT Office Visit [facility] [address] [place] [address] Jessa Russell MD Wheezing (Primary Dx) 12/05/2024 Travel 12/05/2024 Telephone [facility] MED[facility]INE [address] [place] [phone] Jessa Russell MD Nurse Triage 11/25/2024 10:20 AM EDT Office Visit [facility] [address] [place] [address] Sanjana Tiwari MD Acute bronchitis, unspecified organism (Primary Dx) 11/25/2024 Travel 11/23/2024 Telephone [facility] [address] [place] [address] Jessa Russell MD Chart Prep 11/22/2024 Telephone [facility] [address] [place] [address] Jessa Russell MD Nurse Triage 11/18/2024 Telephone [facility] [address] [place] [address] Jessa Russell MD ER Follow-up 11/18/2024 Travel 11/14/2024 2:00 PM EDT Office Visit [facility] [address] [place] [address] Parish Whitfield MD Acute cough (Primary Dx); Sore throat; Myalgia; Sinus pressure 11/14/2024 Telephone [facility] [address] [place] [address] Jessa Russell MD Nurse Triage 11/07/2024 3:45 PM EST Office Visit [facility] [address] [place] [address] Jessa Russell MD Acquired hypothyroidism (Primary Dx); Chronic insomnia; IFG (impaired fasting glucose); Blood glucose abnormal; Herpes labialis; Herpes labialis without complication 11/07/2024 Travel 11/04/2024 Telephone [facility] [address] [place] [address] Jessa Russell MD chart prep 11/03/2024 Travel 11/01/2024 Telephone [facility] [address] [place] [address] Jessa Russell MD No Show 10/31/2024 Travel 10/28/2024 Telephone [facility] [address] [place] [address] Jessa Russell MD chart prep. 10/25/2024 Refill [facility] [address] [place] [address] Jessa Russell MD Chronic insomnia 10/18/2024 Patient Outreach [facility] [address] [place], [place] [phone] Jessa Russell MD Pre-visit Planning (SDOH screening [...] Smoking Tobacco: Former Cigarettes Smokeless Tobacco: Never Tobacco Cessation:Counseling Given: No Comments:Has quit smoking for 25 years. Depression Answer Date Recorded Patient [...] Sign Reading Time Taken Comments Blood Pressure 124/75 12/05/2024 2:47 PM EDT Pulse 93 12/05/2024 2:47 PM EDT Temperature 36.7 ??C (98 ??F) 12/05/2024 2:47 PM EDT Respiratory Rate 20 12/05/2024 2:47 PM EDT Oxygen Saturation 97% 12/05/2024 2:47 PM EDT Inhaled Oxygen Concentration - - Weight 103 kg (226 lb) 12/05/2024 2:47 PM EDT Height 173.2 cm (5' 8.2 ) 12/05/2024 2:47 PM EDT Body Mass Index 34.16 12/05/2024 2:47 PM EDT Plan of Treatment Upcoming Encounters Date Type Department Care Team (Late st Contact Info) Description 01/06/2025 3:15 PM EDT Office Visit [facility] [address] [place] [address] Jessa Russell MD [address] [place] [address] 02/07/2025 1:45 PM EDT Office Visit [facility] [address] [place] [address] Jessa Russell MD 505 [facility] JOHANNA Barrera [address] Health Maintenance Due Date Last Done Comments [...] 07/08/2025 11/24/2012 Postponed from 11/24 (Patient Refused) HIV Screening 07/08/2025 Postponed from 1975 (Patient Refused) Alcohol/Substance Use Screening 11/07/2025 11/07/2024 Depression Screening 11/07/2025 11/07/2024, 11/07/2024 Diabetes: Hemoglobin A1C 11/07/2025 025, 07/08/2024 SDOH Screening 11/07/2025 11/07/2024 Tobacco Screening 12/05/2025 12/05/2024 Lipid Panel 07/08/2029 07/08/2024 RSV Patients and [...] Procedure Name Priority Date/Time Associated Diagnosis Comments POC DAVIDSON ID NOW STREP A Routine 11/14/2024 1:44 PM EDT Sore throat POCT INFLUENZA B (ID NOW RAPID MOLECULAR) Routine 11/14/2024 1:41 PM EDT Sore throat POCT INFLUENZA A (ID NOW RAPID MOLECULAR) Routine 11/14/2024 1:40 PM EDT Sore throat POCT RAPID COVID ANTIGEN Routine 11/14/2024 1:39 PM EDT Sore throat HEMOGLOBIN A1C Routine 11/07/2024 4:15 PM EST Acquired hypothyroidism Blood glucose abnormal POCT GLUCOSE Routine 11/07/2024 4:06 PM EST IFG (impaired fasting glucose) HEPATITIS C AB W/REFL TO HCV RNA, QN, PCR Routine 07/14/2024 2:15 PM EST Transaminitis LIPID PANEL, STANDARD Routine 07/08/2024 3:41 PM EDT Acquired hypothyroidism from Last 3 Months or Most Recently Relevant to Health Maintenance Results * POCT Rapid Strep A DAVIDSON ID NOW (11/14/2024 1:44 PM EDT) Rapid Strep A Screen Negative Negative, None Detected QC Media Lot # [id number] Lot# Expiration Date 52 Swab 11/14/2024 1:44 PM EDT Parish Whitfield MD POINT OF CARE TEST ENTER/EDIT OR DERABLES Final Result * POCT Rapid Influenza B DAVIDSON ID NOW (11/14/2024 1:41 PM EDT) Influenza B Negative Negative, Indeterminate [facility] QC Media Lot # [id number] [facility] Lot# Expiration Date [facility] Swab 11/14/2024 1:41 PM EDT Parish Whitfield MD POINT OF CARE TEST ENTER/EDIT OR DERABLES Final Result Performing Organization Address [facility]/ZIP Co de Phone Number [facility] [address] [place] [phone] * POCT Rapid Influenza A DAVIDSON ID NOW (11/14/2024 1:40 PM EDT) Pathologist [facility] Influenza A Negative Negative, Indeterminate [facility] QC Media Lot # [id number] [facility] Lot# Expiration Date [facility] Swab 11/14/2024 1:40 PM EDT Parish Whitfield MD POINT OF CARE TEST ENTER/EDIT OR DERABLES Final Result Performing Organization Address City/[facility]/ZIP Co de Phone Number [facility] [address] [place] [phone] * POCT Rapid Covid-19 BinaxNOW (11/14/2024 1:39 PM EDT) Pathologist [facility] Rapid COVID Ag Negative QC Media Lot # [id number] Lot# Expiration Date Swab 11/14/2024 1:39 PM EDT Parish Whitfield MD POINT OF CARE TEST ENTER/EDIT OR DERABLES Final Result * Hemoglobin A1c (11/07/2024 4:15 PM EST) Hemoglobin A1c 5.9 <6.0 % [facility] Comment:Hemoglobin A1C Refer ence Range Adults: 4.8 - 6.0 % Non diabetic: < 6.0 % Goal: < 7.0 %Additional Action Suggested: > 8.0 %Note: Hemoglobin A1c results are invalid for patients with abnormal amounts of HbF. Blood transfusions may impact the HbA1c concentration in the patient sample. Estimated Average Glucose 123 mg/dL [facility] Comment:eAG = Estimated ave rage glucose which is %A1C expressed asaverage glucose, using the formula of the J9Y-GlemgjvMhejnzu Glucose study (ADAG), Diabetes Care, Vol.31,#8,Apr. 2007 Blood Venous blood specimen / Unknown 11/07/2024 4:15 PM EST 11/07/2024 5:45 PM EST Jessa Russell MD LAB BLOOD ORDERABLES Final Result Performing Organization Address City/State/[facility] Co de Phone Number [facility] [address] [place] [phone] * POCT Glucose (11/07/2024 4:06 PM EST) Glucose Blood, POC 80 60 - 200 mg/dL QC Media Lot # [id number] Lot# Expiration Date 009,358 Blood Capillary blood specimen / Unknown 11/07/2024 4:06 PM EST Result [facility] Jessa Russell MD POINT OF CARE TEST ENTER/ED IT ORDERABLES Final Result * Hepatitis C Antibody with Reflex to HCV, RNA, Quantitative, Real-Time PCR (07/14/2024 2:15 PM EST) Hepatitis C Antibody Nonreactive Nonreactive [facility] Comment:Antibodies to HCV no t detected; does not exclude early acuteHCV infection. Blood Venous blood specimen / Unknown 07/14/2024 2:15 PM EST 07/14/2024 5:39 PM EST Jessa Russell MD LAB BLOOD ORDERABLES Final Result [facility] [address] [place] [phone] * (ABNORMAL) Lipid Panel, Standard (07/08/2024 3:41 PM EDT) Triglycerides 323(H) <150 mg/dL [facility] Comment:Desirable Triglyceri de: less than 150 mg/dLBorderline High Triglyceride 150-199 mg/dLHigh Triglyceride: 200-499 mg/dLVery High Triglyceride: greater than or equal to 5OO mg/dL Cholesterol 206(H) <200 mg/dL [facility] Comment:Desirable Cholestero l: less than 200 mg/dLBorderline High Cholesterol: 200-239 mg/dLHigh Cholesterol: greater than 239 mg/dL LDL Cholesterol Calculated 111(H) <100 mg/dL [facility] Comment:Desirable LDL: less than 100 mg/dLNear Optimal/Above Optimal LDL: 110- 129 mg/dLBorderline High LDL: 130-159 mg/dLHigh LDL: 160-189 mg/dLVery High LDL: greater than or equal to 190 mg/dL HDL Cholesterol 31(L) >40 mg/dL [facility] Comment:Desirable HDL: great er than 40 mg/dL Note: This HDL assay may give artificially low results in patients with liver disease. Blood Venous blood specimen / Unknown 07/08/2024 3:41 PM EDT 07/08/2024 5:52 PM EDT us Jessa Russell MD LAB BLOOD ORDERABLES Final Result [facility] [address] [place] [phone] from Last 3 Months or Most Recently Relevant to Health Maintenance Insurance [facility] STANDARD MEDICARE Care Teams Student Admissions Clerk Relationship Specialty Start Date End Date Jessa Russell MD [address] [place] [phone] PCP - General Internal Medicine 07/08/24
--- OUTSIDE RECORDS SUMMARY | 2024-12-05 17:31 | XMS_ITS | Encounter Summary ---
Author Organization [employer] Address [address] [facility] 7[address] [place] [address] Care Team Providers Care Corn Chip Maker Name Role Phone Jessa Russell MD Primary Care Provider [phone] Encounter Details Date Type Department Care Team (Latest Contact Info) Description 12/05/2024 Travel Social History Tobacco Use Types Packs/Day Years Used Date Smoking Tobacco: Former Cigarettes Smokeless Tobacco: Never Comments:Has quit smoking fo r 25 years. Depression Answer Date Recorded Patient Health Questionnaire-9 Score 2 11/07/2024 Patient Health Questionnaire-9 Score 2 11/07/2024 Last PHQ-9: Questionnaire Data Not on file 0 11/07/2024 Housing Stability Answer Date Recorded What is your housing situation today? I have juliane lamont 10/18/[address] you li [...] Description 01/06/2025 3:15 PM EDT Office Visit [facility] [address] [place] [address] Jesas Russell MD [address] [place] [address] 02/07/2025 1:45 PM EDT Office Visit [facility] [address] [place] [address] Jessa Russell MD [address] [place] [address] documented as of this encounter Visit Diagnoses Not on filedocumented in this encounter Additional Health Concerns Assessment Noted Time PHQ-9 Depression Total Score: 2 11/08/19 25 3:46 PM EST documented as of this encounter Care Teams Corn Chip Maker Relationship Specialty Start Date End Date Jessa Russell MD [address] [place] [phone] PCP - General Internal Medicine 07/08/24 documented as of this encounter
--- OUTSIDE RECORDS SUMMARY | 2024-12-05 17:31 | XMS_ITS | Encounter Summary ---
Author Organization [employer] Address [address] [place] [address] [place] [address] Care Team Providers Care Electricity Trading Analyst Name Role Phone Jessa Russell MD Primary Care Provider Reason for Referral * PFT (Routine) - Pending Review Specialty Diagnoses / Procedures Referred By Mary crespo Referred To Contact Diagnoses Wheezing Procedures Pulmonary Function Test Jessa Russell MD [address] [place] [address] Phone: tel: fax: [address] Phone: tel: fax: Referral ID Status Reason Start Date Expiration Date V isits Requested Visits Authorized [id number] Pending Review 12/05/2024 12/05/2025 1 1 Reason for Visit * Reason Comments Wheezing Encounter Details Date Type Department Care Team ([facility] st Contact Info) Description 12/05/2024 2:40 PM EDT Office Visit [facility] [address] [place], [place] [phone] Jessa Russell MD [address] [place], [place] [phone] Wheezing (Primary Dx) Social History Tobacco Use Types [...] Mass Index 34.16 12/05/2024 2:47 PM EDT documented in this encounter Progress Notes * Jessa Russell MD - 12/05/2024 2:40 PM EDT Subjective Patient ID: Omega Schmid is a 49 y.o. male who presents for Wheezing. Wheezing Associated symptoms include coughing. Pertinent negatives include no chills or shortness of breath. Patient is a non-smoker. Last smoke more than 20 years ago. Came to the office complaining of shortness of breath with wheezing. Was recently treated with a course of azithromycin and Mucinex with initial improvement. He reports that a neighbor who had some upper respiratory infection came to his house 3 days ago and since then he started coughing again and having wheezing. He denies fever or any other constitutional symptoms. Patient Active Problem List [...] 20 mg by mouth Once per day. azithromycin (Zithromax Z-Harpreet) 250 MG tablet Take 2 tabs day 1 and then 1 tab daily to finish 6 tablet 0 Dextromethorphan-guaiFENesin (Mucinex DM) 30-600 MG tablet sustained-release 12 hour Use 1 tab TID 28 tablet 0 fenofibrate (Tricor) 48 MG tablet Take 1 tablet (48 mg) by mouth Once per day. 30 tablet 11 hydrOXYzine pamoate (Vistaril) 50 MG capsule 50 to 100 mg at bedtime 60 capsule 3 levothyroxine (Synthroid, Levoxyl) 125 MCG tablet Take 125 mcg by mouth Once per day. levothyroxine (Synthroid, Levoxyl) 125 MCG tablet Take 125 mcg by mouth Once per day. metFORMIN (Glucophage) 500 MG tablet Take 500 mg by mouth 2 times daily. No current facility-administered medications on file prior to visit. Allergies Allergen Reactions Penicillin G Anaphylaxis Oxycodone-Acetaminophen Tramadol Rash pt denies allergy Review of Systems Constitutional: Negative for appetite change, chills and diaphoresis. Respiratory: Positive for cough and wheezing. Negative for shortness of breath. Cardiovascular: Negative for leg swelling. Musculoskeletal: Negative for gait problem, joint swelling and myalgias. Objective BP 124/75 (BP Location: Left arm, Patient Position: Sitting, BP Cuff Size: Adult long) Pulse 93 Temp 98 ??F (36.7 ??C) (Oral) Resp 20 Ht 5' 8.2 (1.732 m) Wt 226 lb (103 kg) SpO2 97% BMI 34.16 kg/m?? Physical Exam Constitutional: General: He is not in acute distress. Appearance: Normal appearance. He is obese. He is not ill-appearing, toxic- appearing or diaphoretic. Pulmonary: Effort: Pulmonary effort is normal. No accessory muscle usage, prolonged expiration or respiratory distress. Breath sounds: Decreased air movement present. Rhonchi present. Neurological: Mental Status: He is alert. Assessment/Plan Diagnoses and all orders for this visit: Wheezing Comments: Unclear etiology. Possible reactive airway disease. Possible cough variant asthma Patient will be called when the workup ordered is available. He has to follow-up with me in 4 to 6 weeks for reevaluation. Orders: - POCT Rapid Covid-19 BinaxNOW - POCT Rapid Influenza A OSOM - POCT Rapid Influenza B OSOM - fluticasone-salmeterol (Advair HFA) 115-21 MCG/ACT inhaler; Inhale 2 puffs in the morning and at bedtime. Rinse mouth with water after use to reduce aftertaste and incidence of candidiasis. Do not swallow. - Pulmonary Function Test; Future - XR Chest 2 Views; Future Other orders - predniSONE (Deltasone) 10 MG tablet; 3 tabs once a day x 3 days, 2 tabs once a day x 3 days, 1 tab a day x 3 days. documented in this encounter Plan of Treatment Upcoming Encounters Date Type Department Care Team (Late st Contact Info) Description 01/06/2025 3:15 PM EDT Office Visit [facility] [address] [place] [address] Jessa Russell MD [address] [place] [address] 02/07/2025 1:45 PM EDT Office Visit [facility] [address] [place] [address] Jessa Russell MD [address] [place] [address] Scheduled Orders Name Type Priority Associated Diagnoses Orde r Schedule POCT Rapid Covid-19 BinaxNOW Point of Care Testing Routine Wheezing Ordered: 12/05/2024 POCT Rapid Influenza A OSOM Point of Care Testing Routine Wheezing Ordered: 12/05/2024 POCT Rapid Influenza B OSOM Point of Care Testing Routine Wheezing Ordered: 12/05/2024 Pulmonary Function Test PFT Routine Wheezing Expected: 12/05/2024, Expires: 06/06/2025 XR Chest 2 Views Imaging Routine Wheezing Expected: 12/05/2024, Expires: 12/05/2025 documented as of this encounter Visit Diagnoses Diagnosis Wheezing- Primary documented in this encounter Additional Health Concerns Assessment Noted Time PHQ-9 Depression Total Score: 2 11/08/19 25 3:46 PM EST documented as of this encounter Care Teams Electricity Trading Analyst Relationship Specialty Start Date End Date Jessa Russell MD [address] [place] [address] PCP - General Internal Medicine 07/08/24 documented as of this encounter
== END 2024-12-05 15:36 | disposition home or self-care (01) ==
LOC: HO.XRAY 15:35
PROVIDERS: PCP Internal Medicine; Visit Provider Internal Medicine
DX: R06.2 Wheezing (principal)
CPT/HCPCS: 71046

== ENCOUNTER → 2024-12-05 15:39 | Outpatient (BNV) | payer MEDICARE, MEDICAID, SELFPAY | PROVIDERS: PCP Internal Medicine; Visit Provider Radiology Diagnostic Radiology | DX: R05.9 Cough, unspecified (principal) | CPT/HCPCS: 71046 ==

== ENCOUNTER 2024-12-14 14:11 | Outpatient (AMB) | payer MEDICARE, MEDICAID, SELFPAY ==
--- NOTE | 2024-12-14 14:18 | A.OFFVIS_ITS ---
Vital Signs 12/14/24 14:20 Height 5 ft 9 in Weight 223 lb 15.834 oz BMI 33.1 BP 138/70 Blood Pressure Location Rt brachial Position Sitting Pulse 76 Pulse Source Pulse Oximeter Pulse Oximetry (%) 97 Oxygen Delivery Method Room Air Intake Visit Reasons: Colonoscopy Screening Intake Note: NEW PATIENT for Chief Complaint; Pt reports that he is long overdue for his recall colo. Last was approximately 10 years ago in [facility]. Pt did have reported polypectomy and was supposed to have recall within a few years. Pt unfortunately forgot as h e reports he is typically a poor historian. No additional concerns at this time. [place] Management Specialist Required: No Accompanied by: Self / Same As Patient Allergies Penicillins Allergy (Severe, Verified 12/14/24 14:29) Anaphylaxis acetaminophen [From Percocet] Adverse Reaction (Mild, Verified 12/14/24 14:29) Itching oxycodone [From Percocet] Adverse Reaction (Mild, Verified 12/14/24 14:29) Itching HPI HPI Colonoscopy Screening: Details: 49 year old? 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 Patient was sent to us by his PCP.? Colonoscopy almost 10 years ago diagnostic for constipation. Patient was told he had multiple polyps and also to repeat in 1 year. Patient reports family history of CRC.? Patient denies any gastrointestinal symptoms in the past or at present.? ? Denies history of difficulty with sedation or anesthesia in the past.? Negative for history of sleep apnea.? Denies any history of cardiac, renal, pulmonary, or hepatic disease.?? No history of infectious? diseases like hepatitis A, B, C, HIV or tuberculosis.? Patient is not on any anticoagulation PFSH Medical History Kidney disease Migraine Fatty liver Hypertension High cholesterol Arthritis Hypothyroid Diabetes 1.5, managed as type 2 Surgical History Hx of colonoscopy No pertinent past surgical history Family History Mother Clotting disorder Social History Housing: Apartment Patient Tobacco Use Status: Former Tobacco user e-Cigarette/Vaping Use: Never Used service: Yes Current occupational status: disabled Current occupation: Disabled Cognitive needs: No Hearing needs: No Vision needs: No Review of Systems Const Denies weight gain and Denies weight loss ENT Reports no additional complaints, Denies dysphagia and Denies odynophagia Card Reports no additional complaints Resp Reports no additional complaints GI Denies abdominal pain, Denies belching, Denies melena, Denies bloating, Denies change in bowel habits, Denies dysphagia, Denies excessive flatus, Denies dyspepsia, Denies heartburn, Denies diarrhea, Denies loose stools, Denies nausea, Denies odynophagia and Denies vomiting Reports no additional complaints Musc Reports no additional complaints Neuro Reports no additional complaints Psych Reports no additional complaints Endo Reports no additional complaints Physical Exam Vital Signs: Last Vital Signs Pulse 76 12/14/24 14:20 BP 138/70 12/14/24 14:20 Pulse Ox 97 12/14/24 14:20 Oxygen Delivery Method Room Air 12/14/24 14:20 BMI result Body Mass Index 33.1 Const Other: Patient is limping, s/p R hip surgery few months ago General: healthy appearing and no acute distress Nutritional Appearance: well nourished and obese Orientation/consciousness: patient oriented x3 Resp Effort & Inspection: normal respiratory effort, able to speak in complete sentences, no tracheal deviation and symmetric chest movement Auscultation: clear to auscultation bilaterally Cardio Rate: regular rate GI Inspection: Yes normal to inspection and No distended Palpation (GI): Soft to palpation, not firm, nontender and No hepatosplenomegaly present Auscultation: normal bowel sounds General: Yes no CVA tenderness Back/Spine/Pelvis Back: no CVA tenderness Skin General skin exam: elasticity normal, turgor normal and dry skin Neuro General: patient oriented x3 Psych Appearance: grossly normal Mental Status: mental status grossly normal Assessment & Plan Assessment & Plan (1) Screening for colon cancer: Code(s): Z12.11 - Encounter for screening for malignant neoplasm of colon Category: Medical Plan Patient denies any GI, cardiac or respiratory symptoms.? Denies any issues with anesthesia in the past.? Patient reports that just recently had right hip surgery and did well with anesthesia. Denies any history of sleep apnea. One of his diagnosis, however patient clarified that he never completed the testing. No history of infectious diseases in the past or at present.? Not on any anticoagulation therapy.? No family or personal history of colon cancer or polyps.? Patient denies melena, hematochezia, unintentional weight loss or ribbon like stools.? Discussed at length the pre-procedure,? prep, diet & medications as well as what to expect prior, during and after the procedure.?? Stressed the importance of good bowel prep.? Recommended the use of Vaseline or Calmoseptine OTC & baby wipes with bowel movements to promote comfort.? ?Patient verbalizes understanding and agrees to plan of care.? He was given the opportunity to ask questions and all questions answered.? We will see him after the procedure.? Medications: New polyethylene glycol 3350 (Miralax) As directed by gastroenterology department at [facility] 238 grams PO ONCE 238 grams 0RF Z12.11 - Encounter for screening for malignant neoplasm of colon bisacodyl (Dulcolax (bisacodyl)) take 4 tabs at noon the day before your colonoscopy 20 mg (4 x 5 mg) PO ONCE 4 tabs 0RF 1 day Z12.11 - Encounter for screening for malignant neoplasm of colon Coding Level of Care Code New Pt Level 3 (20685) Diagnoses Screening for colon cancer Z12.11 Time Spent (min) 40 Comment 30 minutes spent with patient and additional 10 minutes spent reviewing his records
[2024-12-14 14:20] VITALS: BP 138/70; PULSE 76; O2SAT 97; BMI 33.1
--- OUTSIDE RECORDS SUMMARY | 2024-12-14 16:31 | XMS_ITS | Encounter Summary ---
Author Organization [employer] Address [address] [facility] [address] [place] [address] Care Team Providers Care Drilling Superintendent Name Role Phone Jessa Russell MD Primary Care Provider Reason for Visit * Reason Onset Date Comments Nurse Triage 12/05/2024 Encounter Details Date Type Department Care Team ([facility] st Contact Info) Description 12/05/2024 Telephone [facility] [address] [place] [address] Jessa Russell MD [address] [place], [place] [phone] Nurse Triage Social History Tobacco Use Types [...] the past 12 months, has t he Energy, gas, oil or water [employer] threatened to shut off services in your [...] is drinking adequate liquids. ASK apt in [facility] today at 240pm. Ptagrees with disposition [...] Description 01/06/2025 3:15 PM EDT Office Visit [facility] [address] [place] [address] Jessa Russell MD [address] [place] [address] 02/07/2025 1:45 PM EDT Office Visit [facility] [address] [place] [address] Jessa Russell MD [address] [place] [address] documented as of this encounter Visit Diagnoses Not on filedocumented in this encounter Additional Health Concerns Assessment Noted Time PHQ-9 Depression Total Score: 2 11/08/19 25 3:46 PM EST documented as of this encounter Care Teams Drilling Superintendent Relationship Specialty Start Date End Date Jessa Russell MD [address] [place] [address] PCP - General Internal Medicine 07/08/24 documented as of this encounter
--- OUTSIDE RECORDS SUMMARY | 2024-12-14 16:31 | XMS_ITS | Encounter Summary ---
Author Organization [employer] Address [address] [place] [address] [place] [address] Care Team Providers Care Set Up Operator Name Role Phone Jessa Russell MD Primary Care Provider Encounter Details Date Type Department Care Team (Late st Contact Info) Description 07/20/2024 Orders Only [facility] [address] [place] [address] Jessa Russell MD [address] [place], [place] [phone] Chronic insomnia (Primary Dx) Social History Tobacco [...] Description 01/06/2025 3:15 PM EDT Office Visit [facility] [address] [place] [address] Jessa Russell MD [address] [place] [address] 02/07/2025 1:45 PM EDT Office Visit [facility] [address] [place] [address] Jessa Russell MD [address] [place], [place] [phone] documented as of this encounter Visit Diagnoses Diagnosis Chronic insomnia- Primary Insomnia, unspecified documented in this encounter Care Teams Set Up Operator Relationship Specialty Start Date End Date Jessa Russell MD [address] [place] [phone] PCP - General Internal Medicine 07/08/24 documented as of this encounter
--- OUTSIDE RECORDS SUMMARY | 2024-12-14 16:31 | XMS_ITS | Clinical Summary ---
Author Organization [employer] Address [address] [facility] [address] [place] [address] Care Team Providers Care General Office Clerk Name Role Phone Jessa Russell MD Primary Care Provider [phone] Allergies Active Allergy Reactions Criticality Noted Date [...] bedtime 60 capsule 3 11/08/19 25 Active Dextromethorphan -guaiFENesin (Mucinex DM) 30-600 MG tablet sustained-releas e 12 hour Use 1 tab TID 28 tablet 11/26/19 25 Active azithromycin (Zithromax Z-Harpreet) 250 MG tablet Take 2 tabs day 1 and then 1 tab daily to finish 6 tablet 11/26/19 25 Active fluticasone-salm eterol (Advair HFA) 115-21 MCG/ACT inhalerIndicatio ns:Wheezing Inhale 2 puffs in the morning and [...] 3 days. 18 tablet 12/06/19 25 Active valACYclovir (Valtrex) 1 g tabletIndication [...] Description 12/05/2024 2:40 PM EDT Office Visit [facility] [address] [place] [address] Jessa Russell MD Wheezing (Primary Dx) 12/05/2024 Travel 12/05/2024 Telephone [facility] [address] [place] [address] Jessa Russell MD Nurse Triage 11/25/2024 10:20 AM EDT Office Visit [facility] [address] [place] [address] Sanjana Tiwari MD Acute bronchitis, unspecified organism (Primary Dx) 11/25/2024 Travel 11/23/2024 Telephone [facility] [address] [place] [address] Jessa Russell MD Chart Prep 11/22/2024 Telephone [facility] [address] [place] [address] Jessa Russell MD Nurse Triage 11/18/2024 Telephone [facility] [address] [place] [address] Jessa Russell MD ER Follow-up 11/18/2024 Travel 11/14/2024 2:00 PM EDT Office Visit [facility] [address] [facility] [address] [place] Whitfield MD Acute cough (Primary Dx); Sore throat; Myalgia; Sinus pressure 11/14/2024 Telephone [facility] [address] [place] [address] Jessa Russell MD Nurse Triage 11/07/2024 3:45 PM EST Office Visit [facility] [address] [place] [address] Jessa Russell MD Acquired hypothyroidism (Primary Dx); Chronic insomnia; IFG (impaired fasting glucose); Blood glucose abnormal; Herpes labialis; Herpes labialis without complication 11/07/2024 Travel 11/04/2024 Telephone [facility] [address] [place] [address] Jessa Russell MD chart prep 11/03/2024 Travel 11/01/2024 Telephone [facility] [address] [place] [address] Jessa Russell MD No Show 10/31/2024 Travel 10/28/2024 Telephone [facility] [address] [place] [address] Jessa Russell MD chart prep. 10/25/2024 Refill [facility] [address] [place] [address] Jessa Russell MD Chronic insomnia 10/18/2024 Patient Outreach [facility] [address] [place], [place] [phone] Jessa Russell MD Pre-visit Planning (SDOH screening [...] Description 01/06/2025 3:15 PM EDT Office Visit [facility] [address] [place] [address] Jessa Russell MD [address] [place] [address] 02/07/2025 1:45 PM EDT Office Visit [facility] [address] [place] [address] Jessa Russell MD [address] [place] [address] Health Maintenance Due Date Last Done Comments [...] Associated Diagnosis Comments XR CHEST 2 VIEWS Routine 12/06/2024 2:43 PM EDT Wheezing POC DAVIDSON ID NOW STREP A Routine [...] Recently Relevant to Health Maintenance Results * XR Chest 2 Views (12/06/2024 2:43 PM EDT) Anatomical Region Laterality Modality Chest Radiographic Birgit ging 12/06/2024 2:43 PM EDT Narrative 12/06/2024 2:44 PM EDT ? [facility] ?[address] ?[place] [address] ?XRay Report ? Signed ? Patient: Binu,Omega ?MR#: [id number] ?? 5 ? : 1975 ?Acct:[id number] ? Age/Sex: 49 / M ?ADM Date: 03/31/25 ? Loc: HO.XRAY ? Attending Dr: Jessa Russell MD ? Ordering Physician: Jessa Russell MD ?? Date of Service: 12/05/24 ?? Procedure(s): XR chest 2V ?? Accession Number(s): [id number] ? cc: Jessa Russell MD ? CLINICAL HISTORY: Cough x > 1 month. ? 2 view chest x-ray ? Comparison: None ? Findings: ?? No consolidation or effusion. ?? Normal size heart. ?? No acute fracture. ? IMPRESSION: ?? 1. No acute findings. ? This document has been electronically signed by: Saul Pimentel MD on ?? 12/06/2024 14:43:03 ? Dictated By: ?Saul Pimentel MD ? Signed By: ?<Electronically signed by Saul Pimentel MD in OV> ? 12/06/24 1444 ? DD/ 1443 ? TD/TT: 12/06/24 1443 ? Site Safety Coordinator: ? Procedure Note Rachael, Image - 12/06/[address] [address] XRay Report Signed Patient: Bandar Schmid#: [id number] 5 : 1975Acct:[id number] Age/Sex: 49 / MADM Date: 12/05/24 Loc: HO.XRAY Attending Dr: Jessa Russell MD Ordering Physician: Jessa Russell MD Date of Service: 12/05/24 Procedure(s): XR chest 2V Accession Number(s): [id number] cc: Jessa Russell MD CLINICAL HISTORY: Cough x > 1 month. 2 view chest x-ray Comparison: None Findings: No consolidation or effusion. Normal size heart. No acute fracture. IMPRESSION: 1. No acute findings. This document has been electronically signed by: Saul Pimentel MD on 12/06/2024 14:43:03 Dictated By: Saul Pimentel MD Signed By: <Electronically signed by Saul Pimentel MD in OV> 12/06/24 1444 DD/ 1443 TD/TT: 12/06/24 144 Site Safety Coordinator: Jessa Russell MD IMG XR PROCEDURES Final Res ult * POCT Rapid Strep A DAVIDSON ID NOW (11/14/2024 1:44 PM EDT) [facility] Rapid Strep A Screen Negative Negative, None Detected QC Media Lot # [id number] Lot# Expiration Date Swab 11/14/2024 1:44 PM EDT [place] Whitfield MD POINT OF CARE TEST ENTER/EDIT OR DERABLES Final Result * POCT Rapid Influenza B DAVIDSON ID NOW (11/14/2024 1:41 PM EDT) [facility] Influenza B Negative Negative, Indeterminate [facility] QC Media Lot # [id number] [facility] Lot# Expiration Date [facility] Swab 11/14/2024 1:41 PM EDT [place] Whitfield MD POINT OF CARE TEST ENTER/EDIT OR DERABLES Final Result Performing Organization Address City/[facility]/ZIP Co de Phone Number [facility] [address] [place] [phone] * POCT Rapid Influenza A DAVIDSON ID NOW (11/14/2024 1:40 PM EDT) [facility] Influenza A Negative Negative, Indeterminate [facility] QC Media Lot # [id number] [facility] Lot# Expiration Date [facility] Swab 11/14/2024 1:40 PM EDT us [place] Whitfield MD POINT OF CARE TEST ENTER/EDIT OR DERABLES Final Result Performing Organization Address City/[facility]/ZIP Co de Phone Number [facility] [address] [place] [phone] * POCT Rapid Covid-19 BinaxNOW (11/14/2024 1:39 PM EDT) Rapid COVID Ag Negative QC Media Lot # [id number] Lot# Expiration Date Swab 11/14/2024 1:39 PM EDT Result [facility] [place] Whitfield MD POINT OF CARE TEST ENTER/EDIT OR DERABLES Final Result * Hemoglobin A1c (11/07/2024 4:15 PM EST) Hemoglobin A1c 5.9 <6.0 % [facility] Comment:Hemoglobin A1C Refer ence Range Adults: 4.8 - 6.0 % Non diabetic: < 6.0 % Goal: < 7.0 %Additional Action Suggested: > 8.0 %Note: Hemoglobin A1c results are invalid for patients with abnormal amounts of HbF. Blood transfusions may impact the HbA1c concentration in the patient sample. Estimated Average Glucose 123 mg/dL [facility] Comment:eAG = Estimated ave rage glucose which is %A1C expressed asaverage glucose, using the formula of the L0N-LiylnctDeawyrh Glucose study (ADAG), Diabetes Care, Vol.31,#8,Apr. 2007 Blood Venous blood specimen / Unknown 11/07/2024 4:15 PM EST 11/07/2024 5:45 PM EST Jessa Russell MD LAB BLOOD ORDERABLES Final Result [facility] [address] [place] [phone] * POCT Glucose (11/07/2024 4:06 PM EST) Glucose Blood, POC 80 60 - 200 mg/dL QC Media Lot # [id number] Lot# Expiration Date ,025 Blood Capillary blood specimen / Unknown 11/07/2024 4:06 PM EST Jessa Russell MD POINT OF CARE TEST ENTER/ED IT ORDERABLES Final Result * Hepatitis C Antibody with Reflex to HCV, RNA, Quantitative, Real-Time PCR (07/14/2024 2:15 PM EST) Hepatitis C Antibody Nonreactive Nonreactive [facility] Comment:Antibodies to HCV no t detected; does not exclude early acuteHCV infection. Blood Venous blood specimen / Unknown 07/14/2024 2:15 PM EST 07/14/2024 5:39 PM EST eJssa Russell MD LAB BLOOD ORDERABLES Final Result [facility] [address] [place] [phone] * (ABNORMAL) Lipid Panel, Standard (07/08/2024 3:41 PM EDT) Triglycerides 323(H) <150 mg/dL [facility] Comment:Desirable Triglyceri de: less than 150 mg/dLBorderline High Triglyceride 150-199 mg/dLHigh Triglyceride: 200-499 mg/dLVery High Triglyceride: greater than or equal to 5OO mg/dL Cholesterol 206(H) <200 mg/dL [facility] Comment:Desirable Cholestero l: less than 200 mg/dLBorderline High Cholesterol: 200-239 mg/dLHigh Cholesterol: greater than 239 mg/dL LDL Cholesterol Calculated 111(H) <100 mg/dL [facility] Comment:Desirable LDL: less than 100 mg/dLNear Optimal/Above Optimal LDL: 110- 129 mg/dLBorderline High LDL: 130-159 mg/dLHigh LDL: 160-189 mg/dLVery High LDL: greater than or equal to 190 mg/dL HDL Cholesterol 31(L) >40 mg/dL [facility] Comment:Desirable HDL: great er than 40 mg/dL Note: This HDL assay may give artificially low results in patients with liver disease. Blood Venous blood specimen / Unknown 07/08/2024 3:41 PM EDT 07/08/2024 5:52 PM EDT Jessa Russell MD LAB BLOOD ORDERABLES Final Result [facility] [address] [place] [address] [phone] from Last 3 Months or Most Recently Relevant to Health Maintenance Insurance [facility] [place] [id number] Care Teams General Office Clerk Relationship Specialty Start Date End Date Jessa Russell MD [address] [place] [phone] PCP - General Internal Medicine 07/08/24
--- OUTSIDE RECORDS SUMMARY | 2024-12-14 16:31 | XMS_ITS | Data Portability ---
Author Organization [place] - [facility], , [facility] Address [address] [place] [address] Care Team Providers Care Salad Maker Name Role Phone DARLINE MORROW OTHER LARA LYNNE Primary Care Provider Assessment No assessment recorded. Plan of Treatment Reminders Order Date Submit Date Provider Last Modified By Organization Details Last Modified Time Details Appointments None recorded. Lab rapid strep group A, throat [address], [address] [place] [address], [address], 5 14:10:45 Referral neurologis t referral - Daily headaches x years; a few migraines; was tried on topamax which broke migraines but side effects were intolerabl e. please help with daily headache thx. 2016 017 ALEXEY [facility], [address] [facility], [place], [address], 8 05:00:53 gastroente rologist referral - needs monitoring and advice for IBS; having stomach pain with any intake; thinks he needs UGI. 2016 017 ALEXEY Leary MD, [address] [facility], [facility] [address], [place], [address], 8 05:00:21 physical therapist referral - R shoulder pain, tenderness on palpation of R AC joint, pain at 90 degrees flexion R arm, increased pain with adduction and abduction but full ROM, sign. decrease in ROM with internal rotation R 2015 016 [facility], [address] [place] [address], [address], 6 08:06:49 Procedures None recorded. Surgeries None recorded. Imaging x-ray, shoulder, 2 views 2015 016 [facility]), [address] , [place], [address], 6 07:43:43 Medication Orders Imitrex 50 mg tablet 2016 017 [facility], [address] [place], [address], 7 15:31:03 Pepcid 20 mg tablet 2016 017 [facility], [address] [place], [address], 7 14:46:22 Topamax 25 mg tablet 2016 017 [facility], [address] [place], [address], 7 15:25:50 piroxicam 20 mg capsule [address] [id number], [address] [place], [place], [id number], 7 14:11:01 Patient TargetsNo targets recorded. Patient Instructions Encounter Date Encounter Id Patient Instructions Last Modified By Organization Details Last Modified Time 08/06/2015 [id number] upper respirator y infection (cold): care instructions [email or web address] Not available 08/06/2015 15:06:23 09/28/2015 [id number] agree mgump Not available 09/28 17:33:38 Reason [...] he needs UGI. Referring Physician: Lyndsey Queen, [facility] Medicine, Encounter Date: 07/07/2017 Neurologist Referral for Shirlene ly headache Daily headaches x years; a few migraines; was tried on topamax which broke migraines but side effects were intolerable. please help with daily headache thx. Referring Physician: Lyndsey Queen [facility] Medicine, Encounter Date: 07/21/2017 Results Created Date Observation Date Name Description Value Unit Range Abnormal Flag Note LastModifiedBy Organization Detail LastModifiedTime 08/06/20 15 08/06/2015 rapid strep group A, throa t Strep negati ve Not Available [address], [address], 08/06/2015 13:48:42 09/28/19 16 09/28/2015 x-ray , [...] icant radiog raphic abnorm alitie s. CODE: 01400 POS: VMG Electr onical ly signed José Miguel mattson Physic fany: Mauro Carver [email or web address] [facility]) [address], [place], [address], 10/04/2015 14:22:35 Result Notes None recorded. 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 [facility]OYA [facility] [place], [address], [facility] 6 13:35:28 Breathing painful 39052476 Completed 200607/27/2013 ZOYA Martinez [place], [place], [address], [facility] 6 13:35:28 Finding by method 260720495 Completed 200612/16/2011 Gretchen Maria NP [address], [place], [address], [facility] 6 13:35:28 Impotence of organic origin Active ZOYA Martinez [place], [place], [address], [facility] 6 13:35:28 Abdominal pain 46233808 Completed 200512/16/2011 Gretchen Maria NP [address], [place], [address], [facility] 6 13:35:28 Contact dermatitis 78813651 Completed 200512/16/2011 Gretchen Maria NP [address], [place], [address], [facility] 6 13:35:28 Cough 07527797 Completed 07/27/2013 Gretchen Maria NP [address], [place], [address], [facility] 6 13:35:28 Cough 48598210 Completed 200612/16/2011 Gretchen Maria NP [address], [place], [address], [facility] 6 13:35:28 Periapical abscess without sinus tract Completed 200512/16/2011 ZOYA Martinez [place], [place], [address], [facility] 6 13:35:28 Pertussis 13398698 Completed 05/24/2015 [place], [address], [facility] 6 13:35:28 Herpes simplex 62414824 Active Gretchen Maria NP [address] [place], [place], [address], [facility] 6 13:35:28 Diarrhea 21261077 Completed 200512/16/2011 [place], [address], [facility] 6 13:35:28 Abnormal weight gain 369500018 Completed 200512/16/2011 Gretchen Maria NP [place], [place], [address], [facility] 6 13:35:28 Low back pain 566458100 Completed 01/09/2015 [place], [address], [facility] 6 13:35:28 Problem Notes None recorded. Procedures Surgical History Date Name Laterality Status Provider Name and Address Organization Details Recorded Time 09/07/19 14 Back Surgery completed Ryan Webster MD [address] [place] [address], [address], [facility] 01/09/2015 16:01:35 09/15/19 13 Nebulizer Tx completed Yaquelin Mojica MA [facility] 09/15/2012 14:30:26 09/07/19 13 Other (specify) completed Ryan Webster MD [address] [place] [address], [address], [facility] 01/09/2015 16:07:39 09/07/19 07 Other (specify) completed Ryan Webster MD [address] [place] [address], [address], [facility] 01/09/2015 16:05:59 Appendectomy completed Ryan Webster MD [address] [place] [address], [address], [facility] 01/09/2015 16:05:59 Imaging Results Imaging Date Name Status LastModified by [facility] Details LastModified Time 09/28/2015 x-ray, shoulder, 2 views completed [email or web address] [facility] [address], [place], [address], 10/04/2015 14:22:35 Procedure Notes None recorded. Medical Equipment None Reported. Allergies Allergen ID Allergen Name Allergen Category Reaction Reaction Severity Criticality Documentation Date Start Date Code Code System Note Provider Name and Address Organization Details Recorded Time Topamax medicatio n dizziness Not available Not available 07/21/2017 44418 3 RxNorm feels like he is out of it. Xiao Menjivar LPN null, [facility] 7 15:03:53 94139 tramadol medicatio n Not available Not available Not available 12/21/2009 50183 RxNorm Eunice RADHA Rdz [place], [facility] 2 12:01:42 16302 Product containin g penicilli n (product) medicatio n anaphylax is Not available Not available 12/21/2009 60225 8001 SNOMED Not Available [facility] 1 06:05:41 Medications Name Sig Start [...] Updated DateTime 7 175.26 cm 31.9 kg/m2 50467.9 5 g 78 /min 102 mm[Hg] 60 mm[Hg] Xiao Menjivar LPN [facility] 7 15:25:26 Date Recorded Body height Body mass index (BMI) Body weight Heart rate Systolic blood pressure Diastolic blood pressure Provider Name and Address Organization Details Last Updated DateTime 7 175.26 cm 32 kg/m2 86868.5 4 g 90 /min 106 mm[Hg] 64 mm[Hg] Xiao Menjivar [facility] 7 14:16:30 Date Recorded Body height Body mass index (BMI) Body weight Heart rate Systolic blood pressure Diastolic blood pressure Provider Name and Address Organization Details Last Updated DateTime 7 175.26 cm 32 kg/m2 01008.5 4 g 90 /min 110 mm[Hg] 66 mm[Hg] Xiao Menjivar [facility] 7 15:06:14 Date Recorded Body height Body mass index (BMI) Body weight Body temperature Heart rate Systolic blood pressure Diastolic blood pressure Provider Name and Address Organization Details Last Updated DateTime 5 175.26 cm 33 kg/m2 783538. 836515 g 98.7 [degF] 84 /min 120 mm[Hg] 80 mm[Hg] Chantale Vega [facility] 5 13:34:15 Date Recorded Body height Provider Name an d Address Organization Details Last Updated DateTime 09/28/2015 175.26 cm Kimmie Velasquez [facility] 09/28/2015 13:22:24 Date Recorded Body mass index (BMI) Body weight Heart rate Systolic blood pressure Diastolic blood pressure Provider Name and Address Organization Details Last Updated DateTime 09/28/2015 33.8 kg/m2 905087.6 5273 g 88 /min 118 mm[Hg] 80 mm[Hg] Arin Green MA [facility] 6 13:34:51 Social History Question Answer Notes LastModified by Organizat ion Details LastModified Time Tobacco Smoking Status Former Smoker Quit [address] 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 6-10yearssinc elastcigarett e Information not available 01/09/2015 How Many Days In The Past Year Have You Had A Heavy Drinking Consumption (4+ Female, 5+ Male)? 0 08/06/15 [email or web address] Information not available 08/06/2015 Are There Any Guns Present In Your Home? No [email or web address] Information not available 07/24/2011 Live Alone Or With Others? With Others Friend - Ivis (platonic) Information not available 12/21/2009 CSRP - Narcotics No [email or web address] Information not available 05/27/2012 CSRP Contract Signed [...] Mel (1999) - Lives With Mom [place] - Estranged Information not available 12/21/2009 Seat [...] Maternal Grandfather Malignant tumor of pancreas 83 [email or web address] Not available 2015 13:51:42 Mother Primary malignant neoplasm of intrahepatic bile duct [email or web address] Not available 2015 13:51:42 Father Epilepsy Not available 09/28/2015 13:51:42 Brother Well adult [email or web address] Not availa ble 09/28/2015 13:51:42 Sister Medical history unknown 1/2 sister [email or web address] Not available 09/28/2015 13:51:42 Daughter Well adolescent [email or web address] Not available 09/28 13:51:42 Medical History Condition [...] SNOMED-CT Code Diagnosis ICD10 Code Diagnosis Note [id number] [facility], OFFICE [address] [place] [address] 06/24/2006 09:44:26 06/25/2006 09:09:10 [id number] [facility] [address] [place] [address] 06/24/2006 10:51:30 06/24/2006 10:51:47 [id number] [facility], OFFICE [address] [place] [address] 06/25/2006 13:27:08 06/25/2006 16:23:01 [id number] [facility], OFFICE [address] [place] [address] 07/07/2006 16:39:17 09/27/2008 02:02:29 [id number] [facility], OFFICE [address] [place] [address] 07/15/2006 14:20:03 07/16/2006 11:10:40 [id number] Radiology , [address] [address] 10/19/2006 17:23:27 10/20/2006 07:28:54 [id number] Radiology , [address] [address] 10/19/2006 00:00:00 09/27/2008 02:02:29 [id number] , [facility], OFFICE [address] [place] [address] 10/19/2006 16:30:48 10/20/2006 07:48:12 [id number] , [facility], OFFICE [address] [place], [place] [address] 12/21/2009 12:57:44 12/24/2009 08:41:31 [id number] , [facility], OFFICE [address] [facility] Bhan[place]iso [place], [place] [address] 06/13/2010 12:36:30 06/14/2010 08:32:15 [id number] , [facility], OFFICE [address] [facility] Bhanunarciso [place], [place] [address] 07/10/2011 08:51:50 07/10/2011 10:07:25 [id number] , [facility], OFFICE [address] [place] [address] [place], [place] [address] 07/23/2011 13:24:31 07/24/2011 08:34:13 [id number] , [facility], OFF[address] [place] [address] [place], [place] [address] 09/03/2011 16:05:37 09/04/2011 08:21:46 [id number] [facility], OFFICE [address] [place] [address] 11/14/2011 12:42:00 11/14/2011 14:17:22 [id number] [facility], [address]ICE [address] [place] [address] 12/16/2011 13:51:43 12/18/2011 11:50:06 [id number] [facility], OFFICE [address] [place] [address] 01/07/2012 15:31:27 01/07/2012 16:08:32 [id number] [facility], OFFICE [address] [place] [address] 01/08/2012 11:41:18 01/08/2012 12:44:44 [id number] , [facility], OFFICE [address] [place] [address] 02/06/2012 11:01:13 02/09/2012 07:04:04 [id number] , [facility], OFFICE [address] [place] [address] [place] [address] 03/19/2012 15:18:09 03/19/2012 17:15:36 [id number] , [facility], OFFICE [address] [place] [address] [place] [address] 03/24/2012 15:50:25 03/24/2012 16:46:32 [id number] , [facility], OFFICE [address] [place] [address] 04/09/2012 11:09:06 04/09/2012 11:57:13 [id number] , [facility], OFFICE [address] [place] [address] [place] [address] 05/07/2012 16:41:19 05/07/2012 17:14:48 [id number] CARI Langley , [facility], OFFICE [address] [place] [address] 08/25/2012 10:54:56 08/25/2012 12:23:10 [id number] CARI Langley , [facility], OFFICE [address] [place] [address] [place] [address] 09/15/2012 14:07:54 09/15/2012 14:47:52 [id number] [facility], OFFICE [address] [place] [address] 09/21/2012 14:07:10 09/21/2012 15:18:43 [id number] Wendy Velasquez , [facility], OFFICE [address] [place] [address] 11/24/2012 10:44:33 11/24/2012 12:49:13 [id number] , [facility], OFFICE [address] [place] [address] 01/09/2015 15:21:38 01/09/2015 16:22:52 Irritable bowel syndrome 86770712 Omega's symptoms are diagnostic of IBS, assuming other etiologies for his pain and altered bowel function have been excluded by prior evaluation . [facility] will [facility] for my review. We can discuss [...] unexplaine d weight loss, or nocturnal stooling. [id number] J[place] Francois, [facility], OFFICE [address] [facility] [place] [address] 03/19/2015 13:38:06 03/19/2015 16:06:14 Cellulitis of foot 741483961 he reports significan t increased pain in [...] it's not better next week Allergic conjunctivitis 532753386 otc drops/ if not better, can use erythro drops [id number] Leo Sweeney MA , [facility], OFFICE [address] [place] [address] 03/22/2015 14:38:20 03/22/2015 15:00:27 Irritable bowel syndrome 43653027 May well be IBS but pt is [...] up for recheck / possible GI referral. [id number] Ryan Webster MD , [facility], OFFICE [address] [place] [address] 05/24/2015 11:31:56 05/25/2015 08:52:59 Abdominal pain 37651724 Omega comes with a very vague history [...] his limitation s and level of concerns. [id number] Kala Vasquez , [facility], OFFICE [address] [place] [address] 06/07/2015 17:03:57 06/08/2015 11:00:03 Acute upper respiratory infection 15831495 J06.9 URI is a viral illness of the upper airways. It is not bacterial and does not benefit from antibiotic s. Average duration of URI is 7-10 days. Recommende d symptomati c treatments including NSAIDS or APAP. Local honey is an effective anti-tussi ve (best studies on buckwheat honey). Chicken soup, salt water gargles also effective. Herpes simplex 20010117 B00.1 [id number] , [facility], OFFICE [address] [place] [address] 08/06/2015 13:20:45 08/07/2015 08:02:19 Upper respiratory infection 72489198 J06.9 he's been ill for several days with significan t pharyngiti s but no exudate and not strep.//Co ntinue symptomati c and expect improvemen t over the next 3 or 4 days [id number] Letha Villasenor MD , [facility], OFFICE [address] [facility] [place] [address] 09/28/2015 13:16:30 09/28/2015 13:51:27 Shoulder pain 35676749 M25.511 DDX; musculoske letal, rotator cuff, labrum [...] Xray findings do not warrant orthopedic referral. [id number] Lyndsey Queen MD , 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 keep headache diary, follow up in 2 weeks. [id number] Lyndsey Queen MD , [facility], [address] [place] [address] 07/07/2017 13:44:54 07/07/2017 14:54:23 Migraine 88372192 G43.909 started topamax and is much better. increase to 50 mg BID, then stay there. follow up 2 weeks; expect side effects from topamax to julius in 2-4 weeks. Irritable bowel syndrome 48046213 K58.9 needs new GI [id number] Lyndsey Queen MD , [facility], [address] [place] [address] 07/21/2017 14:47:16 07/21/2017 15:36:56 Daily headache 3733388443 03 R51 try migraine abortive therapies, follow [...] [place] [employer] Omega E Binu [id number] Omega E Binu 08/06/2015 2 [place] Omega E Binu [id number] Omega E Binu 09/28/2015 1 [place] [employer] Omega E Binu [id number] Omega E Binu 09/28/2015 2 [place] Omega E Binu [id number] Omega E Binu 06/22/2017 1 [place] [employer] Omega E Binu [id number] Omega E Binu 06/22/2017 2 [place] E Binu [id number] Omega E Binu 07/07/2017 1 [place] [employer] Omega E Binu [id number] Omega E Binu 07/07/2017 2 [place] E Binu [id number] Omega E Binu 07/21/2017 1 [place] [employer] Omega E Binu [id number] Omega E Binu 07/21/2017 2 [place] [facility] E Binu [id number] [facility] E [facility]u Notes Date Note Type [...] or back pain. Letha Villasenor MD [address] [place], [address], [facility] 09/28/2015 17:33:39 06/22/2017 text/html migraines starte d 2-3 years ago; nausea with headaches; has had daily headaches for 2-3 years; at least every other day. wakes with headaches, it sometimes goes away and then will come back in the evening. moves all over head; worst ones always right above hinduism. pounding aching quality Lyndsey Queen MD [address] [place], [address], [facility] 06/22/2017 16:26:07 07/07/2017 text/html migraines starte d 2-3 years ago; nausea with headaches; has had daily headaches for 2-3 years; at least every other day. wakes with headaches, it sometimes goes away and then will come back in the evening. moves all over head; worst ones always right above hinduism. pounding aching quality now on 25 mg in the morning and 50 mg at night; headaches are improving; noticing dizziness and visual disturbances; friend reassured him it will take 4 weeks. Lyndsey Queen MD [address] [place], [address], [facility] 07/07/2017 14:51:01 07/21/2017 text/html migraines starte d 2-3 years ago; nausea with headaches; has had daily headaches for 2-3 years; at least every other day. wakes with headaches, it sometimes goes away and then will come back in the evening. moves all over head; worst ones always right above hinduism. pounding aching quality topamax causing unacceptable side effects Lyndsey Queen MD [address] [place] [address], [address], [facility] 07/22/2017 10:47:36
== END 2024-12-14 15:05 | disposition home or self-care (01) ==
PROVIDERS: PCP Internal Medicine; Visit Provider Nurse Practitioner Family
DX: Z01.818 Encounter for other preprocedural examination (principal); Z12.11 Encounter for screening for malignant neoplasm of colon; Z86.0100 Personal history of colon polyps, unspecified
CPT/HCPCS: 99024

== ENCOUNTER → 2024-12-14 14:11 | Outpatient (BNVA) | payer MEDICARE, MEDICAID, SELFPAY | PROVIDERS: PCP Internal Medicine; Visit Provider Nurse Practitioner Family | DX: Z01.818 Encounter for other preprocedural examination (principal) | CPT/HCPCS: 99212 ==

== ENCOUNTER 2025-05-10 10:25 | Outpatient (REF) | payer MEDICARE, MEDICAID, SELFPAY ==
--- OUTSIDE RECORDS SUMMARY | 2025-05-10 10:30 | XMS_ITS | Encounter Summary ---
Author Organization [employer] Address [address] [place] [address] 7 [place] [address] Care Team Providers Care Cow Tester Name Role Phone Jessa Russell MD Primary Care Provider [phone] Reason for Visit * Reason Comments Follow-up Chronic conditions Encounter Details Date Type Department Care Team (Latest Contact Info) Description 05/10/2025 10:30 AM EDT Office Visit [facility] [address] [place] [address] Jessa Russell MD [address] [place], [place] [phone] Acquired hypothyroidism (Primary Dx); Pre-diabetes; Mixed hyperlipidemia; Colon cancer screening; Dietary counseling; Exercise counseling; Class 1 obesity due to excess calories with serious comorbidity and body mass index (BMI) of 33.0 to 33.9 in adult Social History Tobacco Use Types Packs/Day Years [...] Sign Reading Time Taken Comments Blood Pressure 120/82 05/10/2025 10:09 AM EDT Pulse 78 05/10/2025 10:09 AM EDT Temperature 37.1 C (98.7 F) 05/10/2025 10:09 AM EDT Respiratory Rate 22 05/10/2025 10:09 AM EDT Oxygen Saturation 98% 05/10/2025 10:09 AM EDT Inhaled Oxygen Concentration - - Weight 99.8 kg (220 lb) 05/10/2025 10:09 AM EDT Height 172.7 cm (5' 8 ) 05/10/2025 10:09 AM EDT Body Mass Index 33.45 05/10/2025 10:09 AM EDT documented in this encounter Progress Notes * Jessa Russell MD - 05/10/2025 10:30 AM EDT SUBJECTIVE Omega Schmid is a 50 y.o. male who presents for Follow-up (Chronic conditions ). HPI Pt is doing overall well today. He is s/p Hip surgery and his balance has been getting better and better. Has pain occasionally especially if if's raining. Denies any documented episode of hypoglycemia since his last visit. No reported fever or other constitutional symptoms. Problem List[1] Allergies[2] Medications Ordered Prior to Encounter[3] Review of Systems Constitutional: Negative for activity change, appetite change, chills and diaphoresis. HENT: Negative for dental problem, drooling and ear discharge. Eyes: Negative for pain and itching. Respiratory: Negative for cough, choking and chest tightness. Cardiovascular: Negative for palpitations and leg swelling. Gastrointestinal: Negative for abdominal pain, anal bleeding and blood in stool. Endocrine: Negative for cold intolerance and heat intolerance. Genitourinary: Negative for flank pain, frequency and genital sores. Musculoskeletal: Negative for back pain. Neurological: Negative for light-headedness, numbness and headaches. Psychiatric/Behavioral: Negative for agitation, confusion and decreased concentration. OBJECTIVE Vitals: 05/10/25 1009 BP: 120/82 BP Location: Left arm Patient Position: Sitting BP Cuff Size: Adult Pulse: 78 Resp: 22 Temp: 98.7 ??F (37.1 ??C) TempSrc: Oral SpO2: 98% Weight: 220 lb (99.8 kg) Height: 5' 8 (1.727 m) Physical Exam Constitutional: General: He is not in acute distress. Appearance: Normal appearance. He is obese. He is not ill-appearing, toxic- appearing or diaphoretic. Cardiovascular: Rate and Rhythm: Normal rate. Pulmonary: Effort: Pulmonary effort is normal. Musculoskeletal: General: Normal range of motion. Neurological: General: No focal deficit present. Mental Status: He is alert. Assessment/Plan Assessment/Plan Diagnoses and all orders for this visit: Acquired hypothyroidism Comments: Repeat TSH Management after reviewing the results. Orders: - TSH W/Reflex to FT4; Future - Comprehensive Metabolic Panel; Future Pre-diabetes Comments: Low carb diet NO change A1c is stable. Orders: - POCT A1c - POCT glucose manually resulted Mixed hyperlipidemia Comments: Continue w/ the low chol diet Orders: - TSH W/Reflex to FT4; Future - Comprehensive Metabolic Panel; Future - Lipid Panel, Standard; Future Colon cancer screening - Cologuard?? colon cancer screening; Future Pt has missed his appointment for his colonoscopy because he was sick. Has not received any call yet from the GI's office. Cologuard ordered in the meantime. Dietary counseling Exercise counseling Class 1 obesity due to excess calories with serious comorbidity and body mass index (BMI) of 33.0 to 33.9 in adult Dietary Recommendations: Fruits, vegetables, whole grains, protein foods, and fat-free or low-fat dairy products are healthychoices. Eat different types of protein foods in your diet. This can include seafood, lean meats, poultry, beans, peas, lentils, nuts, seeds, soy products, and eggs. Limit foods and beverages higher in added sugars, saturated fat, and sodium. Exercise Recommendations: At least 150 minutes of moderate-intensity physical activity per week, or an equivalent combinationof moderate- and vigorous-intensity activity [1] Patient Active Problem List Diagnosis Acquired hypothyroidism Chronic insomnia Chronic hip pain Chronic pain in right shoulder Degenerative cervical spinal stenosis Idiopathic lumbar spinal stenosis Migraine headache Mixed hyperlipidemia Obstructive sleep apnea Post-traumatic brain syndrome Herpes labialis Herpes labialis without complication COVID Prediabetes [2] Allergies Allergen Reactions Penicillin G Anaphylaxis Oxycodone-Acetaminophen Tramadol Rash pt denies allergy [3] Current Outpatient Medications on File Prior to [...] mouth Once per day. 30 tablet 11 fluticasone-salmeterol (Advair HFA) 115-21 MCG/ACT inhaler Inhale 2 puffs in the morning and at bedtime. Rinse mouth with water after use to reduce aftertaste and incidence of candidiasis. Do not swallow. 12 g 11 hydrOXYzine pamoate (Vistaril) 50 MG capsule TAKE 1 TO 2 CAPSULES BY MOUTH AT BEDTIME 60 capsule 0 levothyroxine (Synthroid, Levoxyl) 125 MCG tablet Take 125 mcg by mouth Once per day. levothyroxine (Synthroid, Levoxyl) 125 MCG tablet Take 125 mcg by mouth Once per day. metFORMIN (Glucophage) 500 MG tablet TAKE 1 TABLET BY MOUTH TWICE A DAY 180 tablet 0 predniSONE (Deltasone) 10 MG tablet 3 tabs once a day x 3 days, 2 tabs once a day x 3 days, 1 tab aday x 3 days. 18 tablet 0 valACYclovir (Valtrex) 1 g tablet TAKE 1 TABLET BY MOUTH TWICE DAILY FOR 7 DAYS 14 tablet 0 No current facility-administered medications on file prior to visit. documented in this encounter Plan of Treatment Scheduled Orders Name Type Priority Associated Diagnoses Orde r Schedule TSH W/Reflex to FT4 Lab Routine Acquired hypothyroidism Mixed hyperlipidemia Expected: 05/10/2025 (Approximate), Expires: 05/10/2026 Comprehensive Metabolic Panel Lab Routine Acquired hypothyroidism Mixed hyperlipidemia Expected: 05/10/2025 (Approximate), Expires: 05/10/2026 Cologuard colon cancer screening Lab Routine Colon cancer screening Expected: 05/10/2025 (Approximate), Expires: 05/10/2026 Lipid Panel, Standard Lab Routine Mixed hyperlipidemia Expected: 05/10/2025 (Approximate), Expires: 05/10/2026 documented as of this encounter Procedures Procedure Name Priority Date/Time Associated Diagnosis Comments POCT GLYCATED HEMOGLOBIN, TOTAL Routine 05/10/2025 10:11 AM EDT Pre-diabetes POCT GLUCOSE Routine 05/10/2025 10:11 AM EDT Pre-diabetes documented in this encounter Results * (ABNORMAL) POCT glucose manually resulted (05/10/2025 10:11 AM EDT) Glucose Blood, POC 126 60 - 200 mg/dL QC Media Lot # Comment:[id number] Lot# Expiration Date Comment:08/26/2025 Blood Capillary blood specimen / Unknown 05/10/2025 10:11 AM EDT us Jessa Russell MD POINT OF CARE TEST ENTER/ED IT ORDERABLES Final Result * (ABNORMAL) POCT A1c (05/10/2025 10:11 AM EDT) Hemoglobin A1C 5.9(A) 4.0 - 5.7 % QC Media Lot # Comment:[id number] Lot# Expiration Date Comment:12/12/2026 Blood 05/10/2025 10:1 1 AM EDT Jessa Russell MD POINT OF CARE TEST ENTER/ED IT ORDERABLES Final Result documented in this encounter Visit Diagnoses Diagnosis Acquired hypothyroidism- Primary Unspecified hypothyroidism Pre-diabetes Other abnormal glucose Mixed hyperlipidemia Colon cancer screening Special screening for malignant neoplasms, colon Dietary counseling Dietary surveillance and counseling Exercise counseling Class 1 obesity due to excess calories with serious comorbidity and body mass index (BMI) of 33.0 to 33.9 in adult documented in this encounter Additional Health Concerns Assessment Noted Time PHQ-9 Depression Total Score: 2 11/08/19 25 3:46 PM EST documented as of this encounter Care Teams Cow Tester Relationship Specialty Start Date End Date Jessa Russell MD [address] [place] [phone] PCP - General Internal Medicine 07/08/24 documented as of this encounter
--- OUTSIDE RECORDS SUMMARY | 2025-05-10 12:13 | XMS_ITS | Encounter Summary ---
Author Organization [employer] Address [address] [facility] [address]t [place] [address] Care Team Providers Care Vein Access Technician Name Role Phone Jessa Russell MD Primary Care Provider Encounter Details Date Type Department Care Team ([facility] st Contact Info) Description 02/06/2025 Orders Only [facility]EDS [address] [place], [place] [phone] Jessa Russell MD [address] [place], [place] [phone] Social History Tobacco Use Types Packs/Day Years [...] t he electric, gas, oil or water [employer] threatened to shut off services in your [...] as of this encounter Plan of Treatment Not on file documented as of this encounter Visit Diagnoses Not on filedocumented in this encounter Additional Health Concerns Assessment Noted Time PHQ-9 Depression Total Score: 2 11/08/19 25 3:46 PM EST documented as of this encounter Care Teams Vein Access Technician Relationship Specialty Start Date End Date Jessa Russell MD [address] [place] [phone] PCP - General Internal Medicine 07/08/24 documented as of this encounter
--- OUTSIDE RECORDS SUMMARY | 2025-05-10 12:13 | XMS_ITS | Clinical Summary ---
Author Organization [employer] Address [address] [facility] 7t [place] [address] Care Team Providers Care Decal Applier Name Role Phone Jessa Russell MD Primary Care Provider Allergies Active Allergy Reactions Criticality Noted Date Comments Oxycodone-Acetaminophen 07/08/2024 Penicillin G Anaphylaxis High 07/08/2024 Tramadol Rash Low 07/08/2024 pt denies allergy Medications levothyroxine (Synthroid, Levoxyl) 125 MCG tablet Take 125 mcg by mouth Once per day. Active atorvastatin (Lipitor) 20 MG tablet Take 20 mg by mouth Once per day. Active levothyroxine (Synthroid, Levoxyl) 125 MCG tablet Take 125 mcg by mouth Once per day. 4 Active fenofibrate (Tricor) 48 MG tabletIndications :Hypertriglycerid emia Take 1 tablet (48 mg) by mouth Once per day. 30 tablet 11 4 07/14/20 25 Active Dextromethorphan- guaiFENesin (Mucinex DM) 30-600 MG tablet sustained-release 12 hour Use 1 tab TID 28 tablet 5 Active azithromycin (Zithromax Z-Harpreet) 250 MG tablet Take 2 tabs day 1 and then 1 tab daily to finish 6 tablet 5 Active fluticasone-salme terol (Advair HFA) 115-21 MCG/ACT inhalerIndication s:Wheezing Inhale 2 puffs in the morning and at bedtime. Rinse mouth with water after use to reduce aftertaste and incidence of candidiasis. Do not swallow. 12 g 11 5 12/06/19 26 Active predniSONE (Deltasone) 10 MG tablet 3 tabs once a day x 3 days, 2 tabs once a day x 3 days, 1 tab a day x 3 days. 18 tablet 5 Active valACYclovir (Valtrex) 1 g tabletIndications :Herpes labialis,Herpes labialis without complication TAKE 1 TABLET BY MOUTH TWICE DAILY FOR 7 DAYS 14 tablet 5 Active metFORMIN (Glucophage) 500 MG tablet TAKE 1 TABLET BY MOUTH TWICE A DAY 180 tablet 5 Active hydrOXYzine pamoate (Vistaril) 50 MG capsuleIndication s:Chronic insomnia TAKE 1 TO 2 CAPSULES BY MOUTH AT BEDTIME 60 capsule 5 Active Active Problems Problem Noted Date Diagnosed Date Prediabetes 02/07/2025 COVID 01/23/2025 Assessment & Plan (01/23/2025 1:55 PM EDT): Symptoms started 3 days ago, denied shortness of breath, was clear on lung auscultation, told to rest, stay well hydrated, ER precautions reviewed, call back if worsening Herpes labialis 11/07/2024 Herpes labialis without complication 11/07/2024 Acquired hypothyroidism 07/08/2024 Chronic insomnia 07/08/2024 Chronic hip pain 07/08/2024 Chronic pain in right shoulder 07/08/2024 Degenerative cervical spinal stenosis 07/08/2024 Idiopathic lumbar spinal stenosis 07/08/2024 Migraine headache 07/08/2024 Mixed hyperlipidemia 07/08/2024 Obstructive sleep apnea 07/08/2024 Post-traumatic brain syndrome 07/08/2024 Encounters Date Type Department Care Team Description 05/10/2025 10:30 AM EDT Office Visit [facility] [address] [place] [address] Jessa Russell MD Acquired hypothyroidism (Primary Dx); Pre-diabetes; Mixed hyperlipidemia; Colon cancer screening; Dietary counseling; Exercise counseling; Class 1 obesity due to excess calories with serious comorbidity and body mass index (BMI) of 33.0 to 33.9 in adult 05/10/2025 Travel 05/09/2025 Telephone [facility] [address] [place] [address] Jessa Russell MD Chart Prep 05/09/2025 Travel 04/03/2025 Refill [facility] MED & PEDS [address] [place] [address] Jessa Russell MD Chronic insomnia 03/14/2025 Refill [facility] [address] [place] [address] Jessa Russell MD 03/05/2025 Refill [facility] [address] [place] [address] Jessa Russell MD Chronic insomnia 02/07/2025 1:45 PM EDT Office Visit [facility] PED[facility] [address] [place] [address] Jessa Russell MD COVID (Primary Dx); Wheezing; Prediabetes 02/07/2025 Travel from Last 3 Months Immunizations Immunization Administration Dates Next Due Influenza, IIV3, injectable 06/07/2014 Pneumococcal Polysaccharide PPSV23 06/07/2014 Tdap 11/24/2012 Family History Medical History Relation Name Comments [...] Mass Index 33.45 05/10/2025 10:09 AM EDT Plan of Treatment Health Maintenance Due Date Last Done Comments CT Colonography 1975 Colonoscopy 1975 FIT DNA/Cologuard 1975 FIT 1975 FOBT 1975 Sigmoidoscopy 1975 Family Planning (PISQ) 1990 COVID-19 Vaccine ( season) 2025 12/04/2020 Influenza Vaccine (#1) 2025 06/07/2014 DTaP/Tdap/Td Vaccines (2 - Td or Tdap) 07/08/2025 11/24/2012 Postponed from 11/24/2022 (Patient Refused) HIV Screening 07/08/2025 Postponed from 1975 (Patient Refused) Disability Screening 11/03/2025 11/03/2024 Alcohol/Substance Use Screening 11/07/2025 11/07/2024 Depression Screening 11/07/2025 11/07/2024, 11/08/19 25 SDOH Screening 11/07/2025 11/07/2024 Hepatitis B Vaccines (1 of 3 - 19+ 3-dose series) 02/07/2026 Postponed from 1994 (Patient Refused) Zoster Vaccines (1 of 2) 02/07/2026 Pos tponed from 2025 (Patient Refused) Colorectal Cancer Screening 05/10/2026 Postponed from 1975 (Patient Refused) Diabetes: Hemoglobin A1C 05/10/2026 025, 02/07/2025, 11/07/2024, Additional history exists Pneumococcal Vaccine: 50+ Years (2 of 2 - PCV) 05/10/2026 06/07/2014 Postponed from 2025 (Patient Refused) Tobacco Screening 05/10/2026 05/10/2025 Lipid Panel 07/08/2029 07/08/2024 RSV Patients and Patients Aged 60 years or older (1 - 1-dose 75+ series) 2050 Hepatitis C Screening Completed 07/14/2024 HIB Vaccines [...] age to complete this topic Meningococcal B Vaccine Aged Out No l onger eligible based on patient's age to complete [...] Date/Time Associated Diagnosis Comments POCT GLUCOSE Routine 05/10/2025 10:11 AM EDT Pre-diabetes POCT GLYCATED HEMOGLOBIN, TOTAL Routine 05/10/2025 10:11 AM EDT Pre-diabetes POCT GLUCOSE Routine 02/07/2025 1:54 PM EDT Prediabetes POCT GLYCATED HEMOGLOBIN, TOTAL Routine 02/07/2025 1:53 PM EDT Prediabetes HEPATITIS C AB W/REFL TO HCV RNA, QN, PCR Routine 07/14/2024 2:15 PM EST Transaminitis LIPID PANEL, STANDARD Routine 07/08/2024 3:41 PM EDT Acquired hypothyroidism from Last 3 Months or Most Recently Relevant to Health Maintenance Results * (ABNORMAL) POCT A1c (05/10/2025 10:11 AM EDT) Only the most recent of2 resultswithin the time period is included. Hemoglobin A1C 5.9(A) 4.0 - 5.7 % QC Media Lot # Comment:[id number] Lot# Expiration Date Comment:12/12/2026 Blood 05/10/2025 10:1 1 AM EDT Jessa Russell MD POINT OF CARE TEST ENTER/ED IT ORDERABLES Final Result * (ABNORMAL) POCT glucose manually resulted (05/10/2025 10:11 AM EDT) Only the most recent of2 resultswithin the time period is included. Pathologist [facility] Glucose Blood, POC 126 60 - 200 mg/dL QC Media Lot # Comment:[id number] Lot# Expiration Date Comment:08/26/2025 Blood Capillary blood specimen / Unknown 05/10/2025 10:11 AM EDT Jessa Russell MD POINT OF CARE TEST ENTER/ED IT ORDERABLES Final Result * Hepatitis C Antibody with Reflex to HCV, RNA, Quantitative, Real-Time PCR (07/14/2024 2:15 PM EST) Hepatitis C Antibody Nonreactive Nonreactive [facility] Comment:Antibodies to HCV no t detected; does not exclude early acuteHCV infection. Blood Venous blood specimen / Unknown 07/14/2024 2:15 PM EST 07/14/2024 5:39 PM EST us Jessa Russell MD LAB BLOOD ORDERABLES Final Result Performing Organization Address City/[facility]/ZIP Co de Phone Number [facility] [address] [place] [phone] * (ABNORMAL) Lipid Panel, Standard (07/08/2024 3:41 PM EDT) Triglycerides 323(H) <150 mg/dL [facility] Comment:Desirable Triglyceri de: less than 150 mg/dLBorderline High Triglyceride 150-199 mg/dLHigh Triglyceride: 200-499 mg/dLVery High Triglyceride: greater than or equal to 5OO mg/dL Cholesterol 206(H) <200 mg/dL [facility] Comment:Desirable Cholestero l: less than 200 mg/dLBorderline High Cholesterol: 200-239 mg/dLHigh Cholesterol: greater than 239 mg/dL LDL Cholesterol Calculated 111(H) <100 mg/dL [facility] Comment:Desirable LDL: less than 100 mg/dLNear Optimal/Above Optimal LDL: 110- 129 mg/dLBorderline High LDL: 130-159 mg/dLHigh LDL: 160-189 mg/dLVery High LDL: greater than or equal to 190 mg/dL HDL Cholesterol 31(L) >40 mg/dL [facility] Comment:Desirable HDL: great er than 40 mg/dL Note: This HDL assay may give artificially low results in patients with liver disease. Blood Venous blood specimen / Unknown 07/08/2024 3:41 PM EDT 07/08/2024 5:52 PM EDT us Jessa Russell MD LAB BLOOD ORDERABLES Final Result Performing Organization Address City/[facility]/ZIP Co de Phone Number [facility] [address] [place] [address] [place] [phone] from Last 3 Months or Most Recently Relevant to Health Maintenance Insurance [facility] [employer] STAND[employer] MEDICARE Care Teams Decal Applier Relationship Specialty Start Date End Date Jessa Russell MD [address] [place] [address] PCP - General Internal Medicine 07/08/24
--- OUTSIDE RECORDS SUMMARY | 2025-05-10 12:13 | XMS_ITS | Encounter Summary ---
Author Organization [employer] Address [address] [facility] [address]t [place] [address] Care Team Providers Care Development Spec Name Role Phone Jessa Russell MD Primary Care Provider Encounter Details Date Type Department Care Team (Latest Contact Info) Description 05/10/2025 Travel Social History Tobacco Use Types Packs/Day [...] documented as of this encounter Care Teams Development Spec Relationship Specialty Start Date End Date Jessa Russell MD [address] [place] [phone] PCP - General Internal Medicine 07/08/24 documented as of this encounter
--- OUTSIDE RECORDS SUMMARY | 2025-05-10 12:13 | XMS_ITS | Encounter Summary ---
Author Organization [employer] Address [address] [place] [address] 7 [place] [address] Care Team Providers Care Wire Threader Name Role Phone Jessa Russell MD Primary Care Provider Encounter Details Date Type Department Care Team ([facility] st Contact Info) Description 07/20/2024 Orders Only [facility] MED & PEDS [address] [place], [place] [phone] Jessa Russell MD [address] [place], [place] [phone] Chronic insomnia (Primary Dx) Social History Tobacco [...] unspecified documented in this encounter Care Teams Wire Threader Relationship Specialty Start Date End Date Jessa Russell MD [address] [place] [address] PCP - General Internal Medicine 07/08/24 documented as of this encounter
--- OUTSIDE RECORDS SUMMARY | 2025-05-10 12:13 | XMS_ITS | Clinical Summary ---
Author Organization [facility] Address [address] [place] [address] Phone Care Team Providers Care Ice Cream Vault Worker Name Role Phone Jessa Russell MD Primary Care Provider [phone] Allergies Active Allergy Reactions Criticality Noted Date Comments Penicillins Anaphylaxis High 11/16/2024 Medications albuterol HFA (PROAIR HFA ; PROVENTIL HFA ; VENTOLIN HFA) 90 mcg/actuation inhaler Inhale 2 puffs by mouth every 4 (four) hours if needed for shortness of breath or wheezing. 1 each 5 Active Active Problems No known active problems Surgical History Surgery Date Site/Laterality Comments NECK SURGERY 2006 PROCEDURE: HISTORICAL NECK SURGERY; COMMENT: Cervical Spine -Anterior Cervical Decompression and Fusion (3 levels) Dr Bhakta BACK SURGERY 2013 PROCEDURE: HISTORICAL BACK SURGERY; COMMENT: L5-S1 anterir fusion cages in [facility]- Dr Bhakta APPENDECTOMY PROCEDURE: HISTORICAL APPENDECTOMY OTHER SURGICAL HISTORY 2012 Right PROCEDURE: CO INCISION BONE CORTEX PELVIS&/HIP JOINT; COMMENT: Hip core decompression for AVN COLONOSCOPY 2013 PROCEDURE: HISTORICAL COLONOSCOPY; COMMENT: Dr Irby - [...] (degenerative disc disease), lumbar AVN of femur (CMS/HCC V24, CMS/HCC V28) 8 DX:AVN of femur (HCC); COMMENT: Sees Dr Soares Diverticulitis 02/03/2018 DX:Diverticuliti s Alcohol dependence in remiss ion (CMS/HCC V24, CMS/HCC V28) 02/25/2018 DX:Alcohol dependence in rem ission (HCC) [...] Sign Reading Time Taken Comments Blood Pressure 145/79 02/06/2025 12:42 PM EDT Pulse 100 02/06/2025 12:42 PM EDT Temperature 36.7 C (98 F) 02/06/2025 12:42 PM EDT Respiratory Rate 18 02/06/2025 12:42 PM EDT Oxygen Saturation 99% 02/06/2025 12:42 PM EDT Inhaled Oxygen Concentration - - Weight 99.8 kg (220 lb) 02/06/2025 12:42 PM EDT Height 172.7 cm (5' 8 ) 02/06/2025 12:42 PM EDT Body Mass Index 33.45 02/06/2025 12:42 PM EDT Plan of Treatment Health Maintenance Due Date Last Done Comments Hepatitis A Vaccines (1 of 2 - Risk 2-dose series) 1994 Hepatitis B Vaccines (1 of 3 - 19+ 3-dose series) 1994 Pneumococcal Vaccine: 50+ Ye ars (2 of 2 - PCV) 06/07/2015 06/07/2014 Colorectal Cancer Screening: Colonoscopy 08/10/2022 HIV Screening 08/10/2022 Medicare Annual Wellness Visit 08/10/2022 Social Influencers of Health Screening 08/10/2022 DTaP,Tdap,and Td Vaccines (2 - Td or Tdap) 11/24/2022 11/24/2012 Depression Screening 09/07/2024 Zoster Vaccines (1 of 2) 2025 COVID-19 Vaccine (2 - 2024-2 6 season) 2025 12/04/2020 Influenza Vaccine (#1) 2025 06/07/2014 Cholesterol Screening (Lipid Panel) 07/08/2029 07/08/2024 [...] Insurance MEDICARE MEDICAID - [place] Care Teams Ice Cream Vault Worker Relationship Specialty Start Date End Date Jessa Russell MD [address] [place] [phone] PCP - General Internal Medicine 02/06/25
--- OUTSIDE RECORDS SUMMARY | 2025-05-10 12:14 | XMS_ITS | Encounter Summary ---
Author Organization [employer] Address [address] [facility] [address] [place] [address] Care Team Providers Care Product Safety Tester Name Role Phone Jessa Russell MD Primary Care Provider Reason for Visit * Reason Onset Date Comments Chart Prep 05/09/2025 Encounter Details Date Type Department Care Team ([facility] [address] Contact Info) Description 05/09/2025 Telephone [facility] [address] [place] [address] Jessa Russell MD [address] [place], [place] [id number] Chart Prep Social History Tobacco Use Types Packs/Day Years [...] encounter Miscellaneous Notes * Telephone Encounter - Isabel Thompson MA - 05/09/2025 1:49 PM EDT Chart Prep Labs: not applicable Images: done Referrals: complete Vaccines due: PCV20 Screenings: colonoscopy Overdue care gaps: Not applicable documented in this encounter Plan of Treatment Not on file documented as of this encounter Visit Diagnoses Not on filedocumented in this encounter Additional Health Concerns Assessment Noted Time PHQ-9 Depression Total Score: 2 11/08/19 25 3:46 PM EST documented as of this encounter Care Teams Product Safety Tester Relationship Specialty Start Date End Date Jessa Russell MD [address] [place] [address] PCP - General Internal Medicine 07/08/24 documented as of this encounter
--- OUTSIDE RECORDS SUMMARY | 2025-05-10 12:14 | XMS_ITS | Encounter Summary ---
Author Organization [employer] Address [address] [facility] [address] [place] [address] Care Team Providers Care Text Transcriber Name Role Phone Jessa Russell MD Primary Care Provider Encounter Details Date Type Department Care Team (Latest Contact Info) Description 05/09/2025 Travel Social History Tobacco Use Types Packs/Day [...] documented as of this encounter Care Teams Text Transcriber Relationship Specialty Start Date End Date Jessa Russell MD [address] [place] [id number] PCP - General Internal Medicine 07/08/24 documented as of this encounter
[2025-05-10 14:26] LABS: Alanine Aminotransferase 40 U/L (0-40); Albumin Level 4.4 g/dL (3.5-5.0); Alkaline Phosphatase 44 U/L (39-117); Anion Gap 12 (12-20); Aspartate Amino Transferase 44 U/L (5-37); Blood Urea Nitrogen 14 mg/dL (9-16); Calcium 9.1 mg/dL (8.4-10.2); Carbon Dioxide 27 mmol/L (22-29); Chloride 105 mmol/L (96-108); Cholesterol 167 mg/dL (<200); Estimated Glomerular Filt Rate > 60; HDL Cholesterol 33 mg/dL (>40); Potassium 4.2 mmol/L (3.3-5.1); Sodium 140 mmol/L (135-145); Total Protein 7.7 g/dL (6.5-8.0); Triglycerides 95 mg/dL (<150)
== END 2025-05-10 10:26 | disposition home or self-care (01) ==
LOC: HO.CHCLDS 10:25
PROVIDERS: Visit Provider Internal Medicine
DX: E78.2 Mixed hyperlipidemia (principal); E03.9 Hypothyroidism, unspecified
CPT/HCPCS: 36415; 80053; 80061; 84443